=== PATIENT | male | born 1960 | race Caucasian/White ===

== ENCOUNTER 2018-06-07 11:49 | Inpatient (IN) | payer OTHER ==
[~2018-06-07] VITALS: Ht 167.6 cm; Wt 74.4 kg
[2018-06-07] MEDS ORDERED: IV NORMAL SALINE 1000ML BAG 1,000 ML IV ONE (12:15)
--- NOTE | 2018-06-07 12:31 | EKG ---
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
--- NOTE | 2018-06-07 12:32 | RAD ---
Portable chest, 06/07/2018: HISTORY: Headache The heart size and pulmonary vascularity are normal. No pulmonary infiltrate is seen. There is no evidence of pleural fluid. IMPRESSION: No acute cardiopulmonary abnormality is detected. Electronically signed by: Gerardo Kaur MD (06/07/2018 12:29 PM) [facility]
[2018-06-07 12:46] LABS: BASO % 0 % (0-3); EOS % 0 % (0-3); HEMATOCRIT 44.6 % (39.0-53.0); HEMOGLOBIN 15.8 g/dL (13.0-17.5); LYMPH % 12 % (24-48); MEAN CORPUSCULAR HEMOGLOBIN 33 pg (25-35); MEAN CORPUSCULAR HGB CONC 35 g/dL (31-37); MEAN CORPUSCULAR VOLUME 92 fL (79-100); MONO # 0.5 x10^3/uL (0.0-1.1); MONO % 6 % (0-9); NEUT # 7.4 x10^3uL (1.8-7.7); NEUT % 82 % (31-73); PLATELET COUNT 251 x10^3/uL (140-400); RED BLOOD COUNT 4.86 x10^6/uL (4.30-5.70); RED CELL DISTRIBUTION WIDTH 13.3 % (11.5-14.5)
[2018-06-07 12:55] LABS: CALCIUM 8.8 mg/dL (8.5-10.1); POTASSIUM 3.4 mmol/L (3.5-5.1)
[2018-06-07 12:57] LABS: PROTHROMBIN TIME PATIENT 13.2 SEC (11.7-14.0)
[2018-06-07 13:01] LABS: ALBUMIN 3.6 g/dL (3.4-5.0); ALBUMIN/GLOBULIN RATIO 0.9 (1.0-1.7); MAGNESIUM 2.2 mg/dL (1.8-2.4); TOTAL BILIRUBIN 1.3 mg/dL (0.2-1.0); TOTAL PROTEIN 7.7 g/dL (6.4-8.2)
--- NOTE | 2018-06-07 13:01 | RAD ---
CT head and cervical spine without contrast History: Headache, fall Technique: Noncontrast CT imaging was performed of the head and cervical spine. Multiplanar reconstruction images are submitted. Exposure: One or more of the following individualized dose reduction techniques were utilized for this examination: 1. Automated exposure control 2. Adjustment of the mA and/or kV according to patient size 3. Use of iterative reconstruction technique. Head CT Comparison: None Findings: There is a large inferior left frontal parenchymal hyperdense hematoma about 3 cm AP by about 2.3 cm CC by 2.5 cm transverse with adjacent prominent vasogenic edema signified by low density. There is adjacent hyperdense subdural hematoma estimated about 0.5-0.6 cm in thickness. There is also hyperdense subdural hematoma extending along the falx both anteriorly and posteriorly, greatest anteriorly about 0.5-0.6 cm in thickness more superiorly. There is also prominent left parasagittal subarachnoid hemorrhage, also in the left frontal region more anteriorly. There is also extent of thin subdural hematoma more laterally in the left frontal region estimated about 0.3 cm in thickness. There is also separate tiny focus of parenchymal hyperdense hemorrhage of the left frontal lobe axial image 16 about 0.3 cm in size. Ventricles are not significantly dilated. No acute calvarial fracture is identified. There is no significant midline shift. There is mild right maxillary sinus mucosal thickening. Mastoid air cells are aerated. There is air-fluid level in the sphenoid sinus, adjacent mild mucosal thickening. Impression: 1. There is a large acute left frontal parenchymal hemorrhagic contusion with adjacent prominent vasogenic edema, also adjacent subdural hematoma extending both laterally and also along the falx. There is also prominent left parasagittal subarachnoid hemorrhage. There is a separate small focus of parenchymal hemorrhagic contusion more laterally of the left frontal lobe. Cervical spine CT Comparison: None Findings: No acute cervical spine fracture is identified. Vertebral body stature is overall preserved. Atlanto-axial distance is within normal limits. There is appropriate alignment of lateral masses of C1 relative to C2. Occipital condylar-C1 relationship is maintained. There is moderate to severe degenerative disc disease at C5-C6 and minimally at C6-7. There is negligible anterior spondylolisthesis at T1-2. There is disc osteophyte complex C5-6. No significant osseous cervical spinal stenosis is identified on this nonmyelographic exam. There is multilevel cervical facet degenerative change, contributes to moderate to severe right and moderate left C5-6 neural foramina compromise. There is no significant abnormality of the limited visualized lung apices. Impression: 1. No acute cervical spine fracture is identified. 2. There is degenerative disc disease and spondylosis greatest at C5-6. There is also right greater than left C5-C6 neural foramina compromise due to facet degenerative change. FOR INTERNAL CODING PURPOSES Critical result: Findings discussed with GIULIA COLÓN APRN at 06/07/2018 12:49 PM. RESULT CODE: (C) Electronically signed by: Neal Cano MD (06/07/2018 12:58 PM) [id number]
[2018-06-07 13:09] LABS: CREATINE KINASE 74 U/L (39-308)
[2018-06-07] MEDS ORDERED: ONDANSETRON PF 4 MG/2 ML VIAL. IV PRN (13:45)
--- NOTE | 2018-06-07 14:20 | PDOC1 ---
History and Physical Date of Admission Date of Admission DATE: 06/07/18 TIME: 14:19 Identification/Chief Complaint Chief Complaint FALL AT HOME, MONDAY Past Medical History Past Medical History Past Medical History Past Medical History: No Pertinent History Past Surgical History: No Surgical History Additional Information: uses chewing tobacco Alcohol Use: HEAVY Drug Use: None FAMILY HX DEPRESSION Pulmonary: No pertinent hx GI: No pertinent hx Heme/Onc: No pertinent hx Renal/: No pertinent hx Family History Family History: Alcohol Abuse, Depression Family History: Parent Social History Smoke: No ALCOHOL: heavy Drugs: None Current Medications Current Medications Current Medications Sodium Chloride 1,000 ml @ 1,000 mls/hr 1X ONCE IV Last administered on at 12:33; Start 06/07/18 at 12:15; Stop 06/07/18 at 13:14; Status DC Ondansetron HCl (Zofran) 4 mg PRN Q8HRS PRN IV NAUSEA/VOMITING; Start 06/07/18 at 13:45; Stop 06/08/18 at 13:44 Morphine Sulfate (Morphine Sulfate) 4 mg PRN Q2HR PRN IV PAIN; Start 06/07/18 at 13:45; Stop 06/08/18 at 13:44 Allergies Allergies: Coded Allergies: No Known Drug Allergies (Unverified , 06/07/18) ROS Review of System 14 PT ROS OTHERWISE NEG General: YES: Fatigue, Malaise PSYCHOLOGICAL ROS: YES: Depression Eyes: Yes Blurry vision HEENT: YES: Heacaches Hematological and Lymphatic: No: Bleeding Problems, Blood Clots, Blood Transfusions, Brusing, Night Sweats, Pallor, Swollen Lymph Nodes, Other ENDOCRINE: No: Breast Changes, Galactorrhea, Hair Pattern Changes, Hot Flashes , Malaise/lethargy, Mood Swings, Palpitations, Polydipsia/polyuria, Skin Changes , Temperature Intolerance, Unexpected Weight Changes, Other Breast: No New/Changing Breast Lumps, No Nipple changes, No Nipple discharge, No Other Cardiovascular: No Chest Pain, No Palpitations, No Orthopnea, No Paroxysmal Noc. Dyspnea, No Edema, No Lt Headedness, No Other Gastrointestinal: No Nausea, No Vomiting, No Abdominal Pain, No Diarrhea, No Constipation, No Melena, No Hematochezia, No Other Musculoskeletal: Yes Gait Disturbance Neurological: Yes Confusion, Yes Dizziness, Yes Gait Disturbance Skin: No Dry Skin, No Eczema, No Hair Changes, No Lumps, No Mole Changes, No Mottling, No Nail Changes, No Pruritus, No Rash, No Skin Lesion Changes, No Other, No Acne Physical Exam Physical Exam Physical Exam Physical Exam Constitutional: Well developed, well nourished, MOD acute distress, non-toxic appearance. [] HENT: Normocephalic, atraumatic, bilateral external ears normal, oropharynx moist, no oral exudates, nose normal. [] Eyes: PERRLA, EOMI, conjunctiva normal, no discharge. [] Neck: Normal range of motion, no tenderness, supple, no stridor. [] Cardiovascular:Heart rate regular rhythm, no murmur [] Lungs & Thorax: Bilateral breath sounds clear to auscultation [] Abdomen: Bowel sounds normal, soft, no tenderness, no masses, no pulsatile masses. [] Skin: Warm, dry, no erythema, no rash. [] Back: No tenderness, no CVA tenderness. [] Extremities: No tenderness, no cyanosis, no clubbing, ROM intact, no edema. [] Neurologic: Alert and oriented X 2 has difficulty finding words, normal motor function, normal sensory function, no focal deficits noted. Cranial nerves II- XII intact. Bruising behind the right ear. Psychologic: Affect normal, judgement normal, mood ANXIOUS. [] General: Cooperative HEENT: EOMI, Mucous membr. moist/pink Lungs: Clear to auscultation, Normal air movement Rectal Exam: not examined Neuro: Cranial nerves 3-12 NL Vitals Vitals Vital Signs Date Time Temp Pulse Resp B/P (MAP) Pulse Ox O2 Delivery O2 Flow Rate FiO2 06/07/18 13:11 56 20 98 06/07/18 12:02 98.1 156/87 (110) Room Air 98.1 Labs Labs Laboratory Tests Test 06/07/18 12:25 White Blood Count 9.0 x10^3/uL (4.0-11.0) Red Blood Count 4.86 x10^6/uL (4.30-5.70) Hemoglobin 15.8 g/dL (13.0-17.5) Hematocrit 44.6 % (39.0-53.0) Mean Corpuscular Volume 92 fL (79-100) Mean Corpuscular Hemoglobin 33 pg (25-35) Mean Corpuscular Hemoglobin Concent 35 g/dL (31-37) Red Cell Distribution Width 13.3 % (11.5-14.5) Platelet Count 251 x10^3/uL (140-400) Neutrophils (%) (Auto) 82 % (31-73) Lymphocytes (%) (Auto) 12 % (24-48) Monocytes (%) (Auto) 6 % (0-9) Eosinophils (%) (Auto) 0 % (0-3) Basophils (%) (Auto) 0 % (0-3) Neutrophils # (Auto) 7.4 x10^3uL (1.8-7.7) Lymphocytes # (Auto) 1.0 x10^3/uL (1.0-4.8) Monocytes # (Auto) 0.5 x10^3/uL (0.0-1.1) Eosinophils # (Auto) 0.0 x10^3/uL (0.0-0.7) Basophils # (Auto) 0.0 x10^3/uL (0.0-0.2) Prothrombin Time 13.2 SEC (11.7-14.0) Prothromb Time International Ratio 1.1 (0.8-1.1) Activated Partial Thromboplast Time 27 SEC (24-38) Sodium Level 138 mmol/L (136-145) Potassium Level 3.4 mmol/L (3.5-5.1) Chloride Level 102 mmol/L (98-107) Carbon Dioxide Level 27 mmol/L (21-32) Anion Gap 9 (6-14) Blood Urea Nitrogen 9 mg/dL (8-26) Creatinine 1.0 mg/dL (0.7-1.3) Estimated GFR (Cockcroft-Gault) 77.0 BUN/Creatinine Ratio 9 (6-20) Glucose Level 117 mg/dL (70-99) Calcium Level 8.8 mg/dL (8.5-10.1) Magnesium Level 2.2 mg/dL (1.8-2.4) Total Bilirubin 1.3 mg/dL (0.2-1.0) Aspartate Amino Transf (AST/SGOT) 19 U/L (15-37) Alanine Aminotransferase (ALT/SGPT) 55 U/L (16-63) Alkaline Phosphatase 85 U/L (46-116) Creatine Kinase 74 U/L (39-308) Creatine Kinase MB (Mass) < 0.5 ng/mL (0.0-3.6) Creatine Kinase MB Relative Index % (0-4) Troponin I Quantitative < 0.017 ng/mL (0.000-0.055) TU-Fdb-V-Type Natriuretic Peptide 70 pg/mL (0-124) Total Protein 7.7 g/dL (6.4-8.2) Albumin 3.6 g/dL (3.4-5.0) Albumin/Globulin Ratio 0.9 (1.0-1.7) Ethyl Alcohol Level < 10 mg/dL (0-10) Laboratory Tests Test 06/07/18 12:25 White Blood Count 9.0 x10^3/uL (4.0-11.0) Red Blood Count 4.86 x10^6/uL (4.30-5.70) Hemoglobin 15.8 g/dL (13.0-17.5) Hematocrit 44.6 % (39.0-53.0) Mean Corpuscular Volume 92 fL (79-100) Mean Corpuscular Hemoglobin 33 pg (25-35) Mean Corpuscular Hemoglobin Concent 35 g/dL (31-37) Red Cell Distribution Width 13.3 % (11.5-14.5) Platelet Count 251 x10^3/uL (140-400) Neutrophils (%) (Auto) 82 % (31-73) Lymphocytes (%) (Auto) 12 % (24-48) Monocytes (%) (Auto) 6 % (0-9) Eosinophils (%) (Auto) 0 % (0-3) Basophils (%) (Auto) 0 % (0-3) Neutrophils # (Auto) 7.4 x10^3uL (1.8-7.7) Lymphocytes # (Auto) 1.0 x10^3/uL (1.0-4.8) Monocytes # (Auto) 0.5 x10^3/uL (0.0-1.1) Eosinophils # (Auto) 0.0 x10^3/uL (0.0-0.7) Basophils # (Auto) 0.0 x10^3/uL (0.0-0.2) Prothrombin Time 13.2 SEC (11.7-14.0) Prothromb Time International Ratio 1.1 (0.8-1.1) Activated Partial Thromboplast Time 27 SEC (24-38) Sodium Level 138 mmol/L (136-145) Potassium Level 3.4 mmol/L (3.5-5.1) Chloride Level 102 mmol/L (98-107) Carbon Dioxide Level 27 mmol/L (21-32) Anion Gap 9 (6-14) Blood Urea Nitrogen 9 mg/dL (8-26) Creatinine 1.0 mg/dL (0.7-1.3) Estimated GFR (Cockcroft-Gault) 77.0 BUN/Creatinine Ratio 9 (6-20) Glucose Level 117 mg/dL (70-99) Calcium Level 8.8 mg/dL (8.5-10.1) Magnesium Level 2.2 mg/dL (1.8-2.4) Total Bilirubin 1.3 mg/dL (0.2-1.0) Aspartate Amino Transf (AST/SGOT) 19 U/L (15-37) Alanine Aminotransferase (ALT/SGPT) 55 U/L (16-63) Alkaline Phosphatase 85 U/L (46-116) Creatine Kinase 74 U/L (39-308) Creatine Kinase MB (Mass) < 0.5 ng/mL (0.0-3.6) Creatine Kinase MB Relative Index % (0-4) Troponin I Quantitative < 0.017 ng/mL (0.000-0.055) BJ-Hnd-P-Type Natriuretic Peptide 70 pg/mL (0-124) Total Protein 7.7 g/dL (6.4-8.2) Albumin 3.6 g/dL (3.4-5.0) Albumin/Globulin Ratio 0.9 (1.0-1.7) Ethyl Alcohol Level < 10 mg/dL (0-10) Images Images CT head and cervical spine without contrast History: Headache, fall Technique: Noncontrast CT imaging was performed of the head and cervical spine. Multiplanar reconstruction images are submitted. Exposure: One or more of the following individualized dose reduction techniques were utilized for this examination: 1. Automated exposure control 2. Adjustment of the mA and/or kV according to patient size 3. Use of iterative reconstruction technique. Head CT Comparison: None Findings: There is a large inferior left frontal parenchymal hyperdense hematoma about 3 cm AP by about 2.3 cm CC by 2.5 cm transverse with adjacent prominent vasogenic edema signified by low density. There is adjacent hyperdense subdural hematoma estimated about 0.5-0.6 cm in thickness. There is also hyperdense subdural hematoma extending along the falx both anteriorly and posteriorly, greatest anteriorly about 0.5-0.6 cm in thickness more superiorly. There is also prominent left parasagittal subarachnoid hemorrhage, also in the left frontal region more anteriorly. There is also extent of thin subdural hematoma more laterally in the left frontal region estimated about 0.3 cm in thickness. There is also separate tiny focus of parenchymal hyperdense hemorrhage of the left frontal lobe axial image 16 about 0.3 cm in size. Ventricles are not significantly dilated. No acute calvarial fracture is identified. There is no significant midline shift. There is mild right maxillary sinus mucosal thickening. Mastoid air cells are aerated. There is air-fluid level in the sphenoid sinus, adjacent mild mucosal thickening. Impression: 1. There is a large acute left frontal parenchymal hemorrhagic contusion with adjacent prominent vasogenic edema, also adjacent subdural hematoma extending both laterally and also along the falx. There is also prominent left parasagittal subarachnoid hemorrhage. There is a separate small focus of parenchymal hemorrhagic contusion more laterally of the left frontal lobe. Cervical spine CT Comparison: None Findings: No acute cervical spine fracture is identified. Vertebral body stature is overall preserved. Atlanto-axial distance is within normal limits. There is appropriate alignment of lateral masses of C1 relative to C2. Occipital condylar-C1 relationship is maintained. There is moderate to severe degenerative disc disease at C5-C6 and minimally at C6-7. There is negligible anterior spondylolisthesis at T1-2. There is disc osteophyte complex C5-6. No significant osseous cervical spinal stenosis is identified on this nonmyelographic exam. There is multilevel cervical facet degenerative change, contributes to moderate to severe right and moderate left C5-6 neural foramina compromise. There is no significant abnormality of the limited visualized lung apices. Impression: 1. No acute cervical spine fracture is identified. 2. There is degenerative disc disease and spondylosis greatest at C5-6. There is also right greater than left C5-C6 neural foramina compromise due to facet degenerative change. FOR INTERNAL CODING PURPOSES Critical result: Findings discussed with GIULIA COLÓN APRN at 06/07/2018 12:49 PM. VTE Prophylaxis Ordered VTE Prophylaxis Devices: Yes VTE Pharmacological Prophylaxi: Contraindicated Assessment/Plan Assessment/Plan IMPRESSION fall 5 days [employer] , May have been drinking ICU observation, repeat CT in AM, neuro checks 1. large inferior left frontal parenchymal hyperdense hematoma about 3 cm AP by about 2.3 cm CC by 2.5 cm transverse with adjacent prominent vasogenic edema signified by low density. 2.adjacent hyperdense subdural hematoma estimated about 0.5-0.6 cm in thickness. There is also hyperdense subdural hematoma extending along the falx both anteriorly and posteriorly, greatest anteriorly about 0.5-0.6 cm in thickness more superiorly. 3. prominent left parasagittal subarachnoid hemorrhage, also in the left frontal region more anteriorly. There is also extent of thin subdural hematoma more laterally in the left frontal region estimated about 0.3 cm in thickness. There is also separate tiny focus of parenchymal hyperdense hemorrhage of the left frontal lobe axial image 16 about 0.3 cm in size. 4. Ventricles are not significantly dilated. No acute calvarial fracture is identified. 5. ALCOHOL ABUSE PLAN ICU BED NS CONSULT NEUROLOGY CONSULT NEUROCHECKS Q [address] HEAD IN AM BANANA BAG SCD'S SEIZURE PRECAUTIONS 100MIN CC TIME CARISSA MOORE MD Jun 07, 2018 14:20
[2018-06-07 15:00] VITALS: BP 122/75
--- NOTE | 2018-06-07 15:15 | PHYS DOC ---
Past Medical History Past Medical History: No Pertinent History Past Surgical History: No Surgical History Additional Information: uses chewing tobacco Alcohol Use: Occasionally Drug Use: None Adult General Chief Complaint Chief Complaint: HEADACHE HPI HPI Patient is a 58 year old male with no significant medical history who presents today complaining of 7 out of 10 frontal headache described as sharp and constant that has been going on since early Monday morning after he fell. Patient states he drank heavily on Monday night. He states he fell down but he doesn't remember how. Patient states he was seen by the PCP on Monday over his headache, he was started on azithromycin. He states his symptoms did not improve, he went to the urgent care clinic at the PCPs office, he was sent to the ED for evaluation. Daughter in the room, he states patient has been walking leaning on one side, and has difficulty finding words. Patient is also complaining of photophobia. Patient denies any nausea vomiting Review of Systems Review of Systems Constitutional: Denies fever or chills [] Eyes: Denies change in visual acuity, redness, or eye pain [] HENT: Denies nasal congestion or sore throat [] Respiratory: Denies cough or shortness of breath [] Cardiovascular: No additional information not addressed in HPI [] GI: Denies abdominal pain, nausea, vomiting, bloody stools or diarrhea [] : Denies dysuria or hematuria [] Musculoskeletal: Denies back pain or joint pain [] Integument: Denies rash or skin lesions [] Neurologic: Reports headache, denies focal weakness or sensory changes [] All other systems were reviewed and found to be within normal limits, except as documented in this note. Current Medications Current Medications Current Medications Medications (Trade) Dose Ordered Sig/Mere Start Time Stop Time Status Last Admin Dose Admin Sodium Chloride 1,000 ml @ 1,000 mls/hr 1X ONCE 06/07/18 12:15 06/07/18 13:14 DC 06/07/18 12:33 1,000 MLS/HR Allergies Allergies Allergies Coded Allergies Type Severity Reaction Last Updated Verified No Known Drug Allergies 06/07/18 No Physical Exam Physical Exam Constitutional: Well developed, well nourished, no acute distress, non-toxic appearance. [] HENT: Normocephalic, atraumatic, bilateral external ears normal, oropharynx moist, no oral exudates, nose normal. [] Eyes: PERRLA, EOMI, conjunctiva normal, no discharge. [] Neck: Normal range of motion, no tenderness, supple, no stridor. [] Cardiovascular:Heart rate regular rhythm, no murmur [] Lungs & Thorax: Bilateral breath sounds clear to auscultation [] Abdomen: Bowel sounds normal, soft, no tenderness, no masses, no pulsatile masses. [] Skin: Warm, dry, no erythema, no rash. [] Back: No tenderness, no CVA tenderness. [] Extremities: No tenderness, no cyanosis, no clubbing, ROM intact, no edema. [] Neurologic: Alert and oriented X 2 has difficulty finding words, normal motor function, normal sensory function, no focal deficits noted. Cranial nerves II- XII intact. Bruising behind the right ear. Psychologic: Affect normal, judgement normal, mood normal. [] Current Patient Data Vital Signs Vital Signs Date Time Temp Pulse Resp B/P (MAP) Pulse Ox O2 Delivery O2 Flow Rate FiO2 06/07/18 13:11 56 20 98 06/07/18 12:02 98.1 156/87 (110) Room Air 98.1 Lab Values Laboratory Tests Test 06/07/18 12:25 White Blood Count 9.0 x10^3/uL (4.0-11.0) Red Blood Count 4.86 x10^6/uL (4.30-5.70) Hemoglobin 15.8 g/dL (13.0-17.5) Hematocrit 44.6 % (39.0-53.0) Mean Corpuscular Volume 92 fL (79-100) Mean Corpuscular Hemoglobin 33 pg (25-35) Mean Corpuscular Hemoglobin Concent 35 g/dL (31-37) Red Cell Distribution Width 13.3 % (11.5-14.5) Platelet Count 251 x10^3/uL (140-400) Neutrophils (%) (Auto) 82 % (31-73) H Lymphocytes (%) (Auto) 12 % (24-48) L Monocytes (%) (Auto) 6 % (0-9) Eosinophils (%) (Auto) 0 % (0-3) Basophils (%) (Auto) 0 % (0-3) Neutrophils # (Auto) 7.4 x10^3uL (1.8-7.7) Lymphocytes # (Auto) 1.0 x10^3/uL (1.0-4.8) Monocytes # (Auto) 0.5 x10^3/uL (0.0-1.1) Eosinophils # (Auto) 0.0 x10^3/uL (0.0-0.7) Basophils # (Auto) 0.0 x10^3/uL (0.0-0.2) Prothrombin Time 13.2 SEC (11.7-14.0) Prothrombin Time INR 1.1 (0.8-1.1) PTT 27 SEC (24-38) Sodium Level 138 mmol/L (136-145) Potassium Level 3.4 mmol/L (3.5-5.1) L Chloride Level 102 mmol/L (98-107) Carbon Dioxide Level 27 mmol/L (21-32) Anion Gap 9 (6-14) Blood Urea Nitrogen 9 mg/dL (8-26) Creatinine 1.0 mg/dL (0.7-1.3) Estimated GFR (Cockcroft-Gault) 77.0 BUN/Creatinine Ratio 9 (6-20) Glucose Level 117 mg/dL (70-99) H Calcium Level 8.8 mg/dL (8.5-10.1) Magnesium Level 2.2 mg/dL (1.8-2.4) Total Bilirubin 1.3 mg/dL (0.2-1.0) H Aspartate Amino Transferase (AST) 19 U/L (15-37) Alanine Aminotransferase (ALT) 55 U/L (16-63) Alkaline Phosphatase 85 U/L (46-116) Creatine Kinase 74 U/L (39-308) Creatine Kinase MB (Mass) < 0.5 ng/mL (0.0-3.6) Creatine Kinase MB Relative Index % (0-4) Troponin I Quantitative < 0.017 ng/mL (0.000-0.055) PR-Niz-Y-Type Natriuretic Peptide 70 pg/mL (0-124) Total Protein 7.7 g/dL (6.4-8.2) Albumin 3.6 g/dL (3.4-5.0) Albumin/Globulin Ratio 0.9 (1.0-1.7) L Ethyl Alcohol Level < 10 mg/dL (0-10) Laboratory Tests 06/07/18 12:25 Laboratory Tests 06/07/18 12:25 EKG EKG 12:[address] Blanc sinus rhythm HR 56 peaked T waves on V4, V2 , V3 no STEMI Radiology/Procedures Radiology/Procedures []PROCEDURE: PORTABLE CHEST 1V Portable chest, 06/07/2018: HISTORY: Headache The heart size and pulmonary vascularity are normal. No pulmonary infiltrate is seen. There is no evidence of pleural fluid. IMPRESSION: No acute cardiopulmonary abnormality is detected. Electronically signed by: Gerardo Kaur MD (06/07/2018 12:29 PM) [facility] DICTATED and SIGNED BY: GERARDO KAUR MD DATE: 06/07/18 1228 PROCEDURE: CT HEAD AND CERVICAL SPINE WO CT head and cervical spine without contrast History: Headache, fall Technique: Noncontrast CT imaging was performed of the head and cervical spine. Multiplanar reconstruction images are submitted. Exposure: One or more of the following individualized dose reduction techniques were utilized for this examination: 1. Automated exposure control 2. Adjustment of the mA and/or kV according to patient size 3. Use of iterative reconstruction technique. Head CT Comparison: None Findings: There is a large inferior left frontal parenchymal hyperdense hematoma about 3 cm AP by about 2.3 cm CC by 2.5 cm transverse with adjacent prominent vasogenic edema signified by low density. There is adjacent hyperdense subdural hematoma estimated about 0.5-0.6 cm in thickness. There is also hyperdense subdural hematoma extending along the falx both anteriorly and posteriorly, greatest anteriorly about 0.5-0.6 cm in thickness more superiorly. There is also prominent left parasagittal subarachnoid hemorrhage, also in the left frontal region more anteriorly. There is also extent of thin subdural hematoma more laterally in the left frontal region estimated about 0.3 cm in thickness. There is also separate tiny focus of parenchymal hyperdense hemorrhage of the left frontal lobe axial image 16 about 0.3 cm in size. Ventricles are not significantly dilated. No acute calvarial fracture is identified. There is no significant midline shift. There is mild right maxillary sinus mucosal thickening. Mastoid air cells are aerated. There is air-fluid level in the sphenoid sinus, adjacent mild mucosal thickening. Impression: 1. There is a large acute left frontal parenchymal hemorrhagic contusion with adjacent prominent vasogenic edema, also adjacent subdural hematoma extending both laterally and also along the falx. There is also prominent left parasagittal subarachnoid hemorrhage. There is a separate small focus of parenchymal hemorrhagic contusion more laterally of the left frontal lobe. Cervical spine CT Comparison: None Findings: No acute cervical spine fracture is identified. Vertebral body stature is overall preserved. Atlanto-axial distance is within normal limits. There is appropriate alignment of lateral masses of C1 relative to C2. Occipital condylar-C1 relationship is maintained. There is moderate to severe degenerative disc disease at C5-C6 and minimally at C6-7. There is negligible anterior spondylolisthesis at T1-2. There is disc osteophyte complex C5-6. No significant osseous cervical spinal stenosis is identified on this nonmyelographic exam. There is multilevel cervical facet degenerative change, contributes to moderate to severe right and moderate left C5-6 neural foramina compromise. There is no significant abnormality of the limited visualized lung apices. Impression: 1. No acute cervical spine fracture is identified. 2. There is degenerative disc disease and spondylosis greatest at C5-6. There is also right greater than left C5-C6 neural foramina compromise due to facet degenerative change. FOR INTERNAL CODING PURPOSES Critical result: Findings discussed with GIULIA COLÓN APRN at 06/07/2018 12:49 PM. RESULT CODE: (C) Course & Med Decision Making Course & Med Decision Making Pertinent Labs and Imaging studies reviewed. (See chart for details) This is a 58-year-old male patient with history of alcoholism who presents today to be evaluated for headache that has been going on since Monday, patient fell early Monday morning after drinking heavily Monday night. Unknown if he had any loss of consciousness. He is alert and oriented 2 in the ED. He has difficulty finding words. Blood pressure on arrival to the ED is 150/104, heart rate 61, respirations 16 and room air, O2 sats 98% on air. FAST exam is negative. Stroke scale documented in nursing notes Labs are negative for any acute findings including PT and INR. CT of the cervical spine is negative for any acute findings, CT of the head is noted for a large acute left frontal parenchymal hemorrhagic contusion with adjacent prominent vasogenic edema, also adjacent subdural hematoma extending both laterally and also along the falx. There is also prominent left parasagittal subarachnoid hemorrhage. There is a separate small focus of parenchymal hemorrhagic contusion more laterally of the left frontal lobe. 13:10 spoke with Tanna MARIE for neurosurgery. Will F/u with patient today 13:26 Dr. Rodríguez who accepted patient for admission. Dragon Disclaimer Dragon Disclaimer This electronic medical record was generated, in whole or in part, using a voice recognition dictation system. Departure Departure Impression: Primary Impression: Subarachnoid hematoma Additional Impressions: Subdural hematoma Fall ETOH abuse Disposition: ADMITTED INPATIENT Condition: STABLE Referrals: KANDACE MAHER (PCP) Problem Qualifiers Primary Impression: Subarachnoid hematoma Encounter type: initial encounter Loss of consciousness presence/duration: with LOC of unspecified duration Qualified Codes: S06.6X9A - Traumatic subarachnoid hemorrhage with loss of consciousness of unspecified duration, initial encounter Additional Impressions: Fall Encounter type: initial encounter Qualified Codes: W19.XXXA - Unspecified fall, initial encounter GIULIA COLÓN APRN Jun 07, 2018 15:15
--- NOTE | 2018-06-07 15:26 | PDOC ---
Provider Note Provider Note patient seen and examined in ICU fell Monday c/o headache since then admitted after second trip to urgent care on exam cruz sign on the right, pupils reactive, neuro intact except dec sensation left face and decreased hearing left ear which he reports is a chronic problems CT with large left frontal hemorrhagic contusion with associated SDH and left parasagittal SAH ICU observation, repeat CT in AM, neuro checks I think surgery is unlikely at this point but he will need to be followed full consult to follow VIKAS MONTEIRO MD Jun 07, 2018 15:26
[2018-06-07] MEDS: POTASSIUM CHLORIDE 10MEQ 100 ML IV SCH ×4 (16:15→19:51)
[2018-06-07] MEDS: MULTIVIT INFUSN,ADULT 4,VIT K 10 ML, THIAMINE INJ 100 MG, FOLIC ACID INJ 1 MG in IV NOR... IV SCH (16:15)
[2018-06-07] MEDS: MORPHINE SULFATE 4 MG/ML VIAL. IV PRN ×2 (16:15→23:29)
[2018-06-07] MEDS ORDERED: cloNIDine HCL 0.1 MG TABLET PO PRN (17:30)
[2018-06-07] MEDS ORDERED: LORazepam 1 MG TABLET PO PRN ×2 (17:30)
[2018-06-07] MEDS ORDERED: HALOPERIDOL LACTATE 5 MG/ML VIAL. IVP PRN (17:30)
[2018-06-07] MEDS ORDERED: diphenhydrAMINE 50 MG/ML VIAL IVP PRN (17:30)
[2018-06-07 19:00] VITALS: BP 145/91
--- NOTE | 2018-06-07 19:29 | CONS ---
DATE OF CONSULTATION: 06/07/2018 REASON FOR CONSULTATION: Intracerebral contusion. HISTORY OF PRESENT ILLNESS: The patient is a pleasant 58-year-old man who reported that last Monday night, he fell. He said that he was drinking heavily Monday night and he fell down, but does not remember those events. He developed headache following this and saw his PCP on Monday. He was seen in the urgent care center. Antibiotics were started and he did not improve. Today because of continued headache, he was again seen in Urgent Care and then sent to the Emergency Room for further evaluation. A CT scan of the head was performed and he was admitted. He denies any problems with nausea or vomiting. He relates that he has had difficulty with bright lights. He says he has had some difficulty with word finding. PAST MEDICAL HISTORY: There is no pertinent history. PAST SURGICAL HISTORY: Negative. PERSONAL HISTORY: He reports alcohol use. He reports using chewing tobacco. Denies drug use. REVIEW OF SYSTEMS: Twelve points was performed and was negative other than outlined above. CURRENT MEDICATIONS: Reviewed and were negative. ALLERGIES: No known allergies to drugs. PHYSICAL EXAMINATION: GENERAL: He is pleasant, alert and cooperative, oriented x 3, complaining of headache. HEENT: Normocephalic. NECK: There is ecchymosis behind, inferior to his right ear/cruz sign. NEUROLOGIC: On examination of his cranial nerves, his pupils were equal and reactive with normal extraocular motor function. Facial motor examination was normal and facial sensory examination, he reported a decrease in light touch involving his left face and decreased hearing to finger rub involving his left ear. The remainder of his cranial nerves were intact. On motor testing, his strength was 5/5 in upper and lower extremities bilaterally. On sensory examination, was intact to light touch in the upper and lower extremities bilaterally. Reflexes were 1+ and symmetric. There were no pathologic reflexes. There was full range of motion of upper and lower extremities bilaterally. LABORATORY DATA: I reviewed a CT scan of the head. On that study, there is a large acute/subacute left frontal hemorrhagic contusion, which is associated with left parasagittal subarachnoid hemorrhage as well as a thin subdural hematoma over the left frontal region. There was no significant midline shift. IMPRESSION: Headache related to left frontal parenchymal hemorrhagic contusion related to atraumatic fall. RECOMMENDATIONS: At this point, he should be admitted to the Intensive Care Unit and observed presently through the night and repeat CT should be performed tomorrow. I feel that the risk of surgical intervention at this point is very small. I appreciate you asking us to see him. VIKAS MONTEIRO MD DR: BETY/cammie JOB#: [id number] / [id number]
[2018-06-07 21:38] LABS: BILIRUBIN,URINE NEGATIVE (NEG); CLARITY,URINE CLOUDY; COLOR,URINE AMBER; NITRITE,URINE NEGATIVE (NEG); PH,URINE 6.5; PROTEIN,URINE NEGATIVE (NEG-TRACE)
[2018-06-07 21:46] LABS: BARBITURATES NEG (NEG); BENZODIAZEPINES NEG (NEG); CANNABINOIDS NEG (NEG); COCAINE NEG (NEG); METHADONE NEG (NEG); OPIATES POS (NEG); PHENCYCLIDINE NEG (NEG)
[2018-06-07 21:48] LABS: BACTERIA,URINE 0 /HPF (0-FEW); HYALINE CASTS, URINE OCCASIONAL /HPF; WBC,URINE OCC /HPF (0-4)
[2018-06-07 21:50] LABS: AMPHETAMINE/METHAMPHETAMINE NEG (NEG)
[2018-06-07 22:19] VITALS: BP 145/82
[2018-06-08] VITALS (14 sets, daily range): BP systolic 65–157; BP diastolic 62–95
[2018-06-08] MEDS: MORPHINE SULFATE 4 MG/ML VIAL. IV PRN (06:47)
[2018-06-08] MEDS ORDERED: MULTIVIT INFUSN,ADULT 4,VIT K 10 ML, THIAMINE INJ 100 MG, FOLIC ACID INJ 1 MG in IV NOR... IV SCH ×8 (09:00)
[2018-06-08] MEDS ORDERED: ENALAPRILAT 1.25 MG/ML VIAL. IVP PRN (09:30)
[2018-06-08] MEDS ORDERED: ONDANSETRON PF 4 MG/2 ML VIAL. IV PRN (09:45)
[2018-06-08] MEDS ORDERED: DOCUSATE SODIUM 100 MG CAPSULE. PO PRN (09:45)
[2018-06-08] MEDS: MULTIVIT INFUSN,ADULT 4,VIT K 10 ML, THIAMINE INJ 100 MG, FOLIC ACID INJ 1 MG in IV NOR... IV SCH (09:47)
[2018-06-08 11:05] LABS: BASO % 0 % (0-3); EOS % 0 % (0-3); HEMATOCRIT 40.3 % (39.0-53.0); HEMOGLOBIN 14.3 g/dL (13.0-17.5); LYMPH # 1.5 x10^3/uL (1.0-4.8); LYMPH % 15 % (24-48); MEAN CORPUSCULAR HEMOGLOBIN 32 pg (25-35); MEAN CORPUSCULAR HGB CONC 36 g/dL (31-37); MEAN CORPUSCULAR VOLUME 91 fL (79-100); MONO # 0.8 x10^3/uL (0.0-1.1); MONO % 8 % (0-9); NEUT # 8.1 x10^3uL (1.8-7.7); NEUT % 77 % (31-73); PLATELET COUNT 230 x10^3/uL (140-400); RED BLOOD COUNT 4.44 x10^6/uL (4.30-5.70); RED CELL DISTRIBUTION WIDTH 13.2 % (11.5-14.5); WHITE BLOOD COUNT 10.6 x10^3/uL (4.0-11.0)
[2018-06-08 11:12] LABS: CALCIUM 8.5 mg/dL (8.5-10.1); CREATININE 0.8 mg/dL (0.7-1.3); GFR 99.6; POTASSIUM 3.7 mmol/L (3.5-5.1)
[2018-06-08 11:17] LABS: CHOLESTEROL/HDL RATIO 7.1
[2018-06-08] MEDS: AMINO AC 3%/ELECTROLYTE/GLYCER 1,000 ML IV SCH (11:54)
[2018-06-08] MEDS: MORPHINE SULFATE 2 MG/ML VIAL. IV PRN ×3 (11:56→20:48)
--- NOTE | 2018-06-08 12:11 | RAD ---
CT of the head without contrast, 06/08/2018: HISTORY: Follow-up parenchymal hemorrhage/contusion Noncontrast scans were obtained and compared to a study from 06/07/2018. We performed sagittal and coronal reconstructions. There is an irregular area of increased density again identified within the left frontal lobe with moderate surrounding edema. This apparent hemorrhage measures approximately 2.8 cm in greatest width and is of similar size and extent compared to yesterday's study. There is an adjacent extra-axial component of hemorrhage anteroinferiorly, best seen on the sagittal and coronal views, compatible with a subdural location. It measures approximately 6 mm in width. This subdural component extends posteriorly along the left side of the falx as well as superiorly adjacent to the falx. There are also areas of increased density in the left frontal lobe and the left parafalcine region compatible with a component of subarachnoid hemorrhage. Some of these areas of increased density along the left side of the falx also probably represent parenchymal contusion. There is been no significant change since yesterday's study. There is no shift of the midline structures. The right cerebral hemisphere and cerebellum are unremarkable. No bony abnormality is detected. There is fluid in the left sphenoid sinus with mucosal thickening in the right maxillary and left sphenoid sinuses, likely on an inflammatory basis. IMPRESSION: Stable left frontal lobe hemorrhage compatible with a cerebral contusion with associated edema, as well as adjacent subdural and subarachnoid hemorrhage as described above. Electronically signed by: Gerardo Kaur MD (06/08/2018 12:07 PM) [facility]
--- NOTE | 2018-06-08 13:44 | PDOC ---
PROGRESS NOTES Chief Complaint Chief Complaint left frontal hemorrhage with contusion, edema, from fall traumatic possible ETOH abuse AMS, with brain hemorrhage, with some confusion and memory issues plan: fu with neurosx no sx for now ok to transfer out of ICU CT repeated today stable PTOT keep BP <150/90 with iv meds prn, if cont high , need add po meds talked to and daughter at bedside PPN for now with lo po intake History of Present Illness History of Present Illness ROS: no fever, chills, sob or chest pain headache much better talks slow, walk slow not like normal eats ok, but low po intake Vitals Vitals Vital Signs Date Time Temp Pulse Resp B/P (MAP) Pulse Ox O2 Delivery O2 Flow Rate FiO2 06/08/18 11:56 13 97 Room Air 06/08/18 06:00 57 142/89 (106) 06/08/18 04:00 98.7 98.7 Physical Exam Physical Exam talks very slow, not answer some questions, bl strength ok General: Alert, Cooperative Heart: Regular rate, Normal S1, Normal S2 Lungs: Clear Abdomen: Normal bowel sounds, Soft Extremities: No clubbing, No cyanosis Skin: No rashes Labs LABS Laboratory Tests Test 06/07/18 21:20 06/08/18 10:45 Urine Collection Type Unknown Urine Color Purnima Urine Clarity Cloudy Urine pH 6.5 Urine Specific Hughes 1.020 Urine Protein Negative mg/dL (NEG-TRACE) Urine Glucose (UA) Negative mg/dL (NEG) Urine Ketones (Stick) 40 mg/dL (NEG) Urine Blood Negative (NEG) Urine Nitrite Negative (NEG) Urine Bilirubin Negative (NEG) Urine Urobilinogen Dipstick 4.0 mg/dL (0.2 mg/dL) Urine Leukocyte Esterase Negative (NEG) Urine RBC 1-2 /HPF (0-2) Urine WBC Occ /HPF (0-4) Urine Bacteria 0 /HPF (0-FEW) Urine Hyaline Casts Occasional /HPF Urine Mucus Marked /LPF Urine Opiates Screen Pos (NEG) Urine Methadone Screen Neg (NEG) Urine Barbiturates Neg (NEG) Urine Phencyclidine Screen Neg (NEG) Urine Amphetamine/Methamphetamine Neg (NEG) Urine Benzodiazepines Screen Neg (NEG) Urine Cocaine Screen Neg (NEG) Urine Cannabinoids Screen Neg (NEG) Urine Ethyl Alcohol Neg (NEG) White Blood Count 10.6 x10^3/uL (4.0-11.0) Red Blood Count 4.44 x10^6/uL (4.30-5.70) Hemoglobin 14.3 g/dL (13.0-17.5) Hematocrit 40.3 % (39.0-53.0) Mean Corpuscular Volume 91 fL (79-100) Mean Corpuscular Hemoglobin 32 pg (25-35) Mean Corpuscular Hemoglobin Concent 36 g/dL (31-37) Red Cell Distribution Width 13.2 % (11.5-14.5) Platelet Count 230 x10^3/uL (140-400) Neutrophils (%) (Auto) 77 % (31-73) Lymphocytes (%) (Auto) 15 % (24-48) Monocytes (%) (Auto) 8 % (0-9) Eosinophils (%) (Auto) 0 % (0-3) Basophils (%) (Auto) 0 % (0-3) Neutrophils # (Auto) 8.1 x10^3uL (1.8-7.7) Lymphocytes # (Auto) 1.5 x10^3/uL (1.0-4.8) Monocytes # (Auto) 0.8 x10^3/uL (0.0-1.1) Eosinophils # (Auto) 0.0 x10^3/uL (0.0-0.7) Basophils # (Auto) 0.0 x10^3/uL (0.0-0.2) Sodium Level 133 mmol/L (136-145) Potassium Level 3.7 mmol/L (3.5-5.1) Chloride Level 99 mmol/L (98-107) Carbon Dioxide Level 23 mmol/L (21-32) Anion Gap 11 (6-14) Blood Urea Nitrogen 7 mg/dL (8-26) Creatinine 0.8 mg/dL (0.7-1.3) Estimated GFR (Cockcroft-Gault) 99.6 Glucose Level 105 mg/dL (70-99) Calcium Level 8.5 mg/dL (8.5-10.1) Triglycerides Level 85 mg/dL (0-150) Cholesterol Level 185 mg/dL (0-200) LDL Cholesterol, Calculated 142 mg/dL (0-100) VLDL Cholesterol, Calculated 17 mg/dL (0-40) Non-HDL Cholesterol Calculated 159 mg/dL (0-129) HDL Cholesterol 26 mg/dL (40-60) Cholesterol/HDL Ratio 7.1 Assessment and Plan Assessmemt and Plan Problems Medical Problems: (1) ETOH abuse Status: Acute (2) Fall Status: Acute Comment Review of Relevant I have reviewed the following items ranjan (where applicable) has been applied. Labs Laboratory Tests Test 06/07/18 12:22 06/07/18 12:25 06/07/18 21:20 06/08/18 10:45 Vitamin B12 Level 472 pg/mL (247-911) Thyroid Stimulating Hormone (TSH) 0.504 uIU/mL (0.358-3.74) White Blood Count 9.0 x10^3/uL (4.0-11.0) 10.6 x10^3/uL (4.0-11.0) Red Blood Count 4.86 x10^6/uL (4.30-5.70) 4.44 x10^6/uL (4.30-5.70) Hemoglobin 15.8 g/dL (13.0-17.5) 14.3 g/dL (13.0-17.5) Hematocrit 44.6 % (39.0-53.0) 40.3 % (39.0-53.0) Mean Corpuscular Volume 92 fL (79-100) 91 fL (79-100) Mean Corpuscular Hemoglobin 33 pg (25-35) 32 pg (25-35) Mean Corpuscular Hemoglobin Concent 35 g/dL (31-37) 36 g/dL (31-37) Red Cell Distribution Width 13.3 % (11.5-14.5) 13.2 % (11.5-14.5) Platelet Count 251 x10^3/uL (140-400) 230 x10^3/uL (140-400) Neutrophils (%) (Auto) 82 % (31-73) 77 % (31-73) Lymphocytes (%) (Auto) 12 % (24-48) 15 % (24-48) Monocytes (%) (Auto) 6 % (0-9) 8 % (0-9) Eosinophils (%) (Auto) 0 % (0-3) 0 % (0-3) Basophils (%) (Auto) 0 % (0-3) 0 % (0-3) Neutrophils # (Auto) 7.4 x10^3uL (1.8-7.7) 8.1 x10^3uL (1.8-7.7) Lymphocytes # (Auto) 1.0 x10^3/uL (1.0-4.8) 1.5 x10^3/uL (1.0-4.8) Monocytes # (Auto) 0.5 x10^3/uL (0.0-1.1) 0.8 x10^3/uL (0.0-1.1) Eosinophils # (Auto) 0.0 x10^3/uL (0.0-0.7) 0.0 x10^3/uL (0.0-0.7) Basophils # (Auto) 0.0 x10^3/uL (0.0-0.2) 0.0 x10^3/uL (0.0-0.2) Prothrombin Time 13.2 SEC (11.7-14.0) Prothromb Time International Ratio 1.1 (0.8-1.1) Activated Partial Thromboplast Time 27 SEC (24-38) Sodium Level 138 mmol/L (136-145) 133 mmol/L (136-145) Potassium Level 3.4 mmol/L (3.5-5.1) 3.7 mmol/L (3.5-5.1) Chloride Level 102 mmol/L (98-107) 99 mmol/L (98-107) Carbon Dioxide Level 27 mmol/L (21-32) 23 mmol/L (21-32) Anion Gap 9 (6-14) 11 (6-14) Blood Urea Nitrogen 9 mg/dL (8-26) 7 mg/dL (8-26) Creatinine 1.0 mg/dL (0.7-1.3) 0.8 mg/dL (0.7-1.3) Estimated GFR (Cockcroft-Gault) 77.0 99.6 BUN/Creatinine Ratio 9 (6-20) Glucose Level 117 mg/dL (70-99) 105 mg/dL (70-99) Calcium Level 8.8 mg/dL (8.5-10.1) 8.5 mg/dL (8.5-10.1) Magnesium Level 2.2 mg/dL (1.8-2.4) Total Bilirubin 1.3 mg/dL (0.2-1.0) Direct Bilirubin 0.4 mg/dL (0.0-0.2) Aspartate Amino Transf (AST/SGOT) 19 U/L (15-37) Alanine Aminotransferase (ALT/SGPT) 55 U/L (16-63) Alkaline Phosphatase 85 U/L (46-116) Creatine Kinase 74 U/L (39-308) Creatine Kinase MB (Mass) < 0.5 ng/mL (0.0-3.6) Creatine Kinase MB Relative Index % (0-4) Troponin I Quantitative < 0.017 ng/mL (0.000-0.055) OS-Xou-D-Type Natriuretic Peptide 70 pg/mL (0-124) Total Protein 7.7 g/dL (6.4-8.2) Albumin 3.6 g/dL (3.4-5.0) Albumin/Globulin Ratio 0.9 (1.0-1.7) Ethyl Alcohol Level < 10 mg/dL (0-10) Urine Collection Type Unknown Urine Color Purnima Urine Clarity Cloudy Urine pH 6.5 Urine Specific Hughes 1.020 Urine Protein Negative mg/dL (NEG-TRACE) Urine Glucose (UA) Negative mg/dL (NEG) Urine Ketones (Stick) 40 mg/dL (NEG) Urine Blood Negative (NEG) Urine Nitrite Negative (NEG) Urine Bilirubin Negative (NEG) Urine Urobilinogen Dipstick 4.0 mg/dL (0.2 mg/dL) Urine Leukocyte Esterase Negative (NEG) Urine RBC 1-2 /HPF (0-2) Urine WBC Occ /HPF (0-4) Urine Bacteria 0 /HPF (0-FEW) Urine Hyaline Casts Occasional /HPF Urine Mucus Marked /LPF Urine Opiates Screen Pos (NEG) Urine Methadone Screen Neg (NEG) Urine Barbiturates Neg (NEG) Urine Phencyclidine Screen Neg (NEG) Urine Amphetamine/Methamphetamine Neg (NEG) Urine Benzodiazepines Screen Neg (NEG) Urine Cocaine Screen Neg (NEG) Urine Cannabinoids Screen Neg (NEG) Urine Ethyl Alcohol Neg (NEG) Triglycerides Level 85 mg/dL (0-150) Cholesterol Level 185 mg/dL (0-200) LDL Cholesterol, Calculated 142 mg/dL (0-100) VLDL Cholesterol, Calculated 17 mg/dL (0-40) Non-HDL Cholesterol Calculated 159 mg/dL (0-129) HDL Cholesterol 26 mg/dL (40-60) Cholesterol/HDL Ratio 7.1 Laboratory Tests Test 06/07/18 21:20 06/08/18 10:45 Urine Collection Type Unknown Urine Color Purnima Urine Clarity Cloudy Urine pH 6.5 Urine Specific Hughes 1.020 Urine Protein Negative mg/dL (NEG-TRACE) Urine Glucose (UA) Negative mg/dL (NEG) Urine Ketones (Stick) 40 mg/dL (NEG) Urine Blood Negative (NEG) Urine Nitrite Negative (NEG) Urine Bilirubin Negative (NEG) Urine Urobilinogen Dipstick 4.0 mg/dL (0.2 mg/dL) Urine Leukocyte Esterase Negative (NEG) Urine RBC 1-2 /HPF (0-2) Urine WBC Occ /HPF (0-4) Urine Bacteria 0 /HPF (0-FEW) Urine Hyaline Casts Occasional /HPF Urine Mucus Marked /LPF Urine Opiates Screen Pos (NEG) Urine Methadone Screen Neg (NEG) Urine Barbiturates Neg (NEG) Urine Phencyclidine Screen Neg (NEG) Urine Amphetamine/Methamphetamine Neg (NEG) Urine Benzodiazepines Screen Neg (NEG) Urine Cocaine Screen Neg (NEG) Urine Cannabinoids Screen Neg (NEG) Urine Ethyl Alcohol Neg (NEG) White Blood Count 10.6 x10^3/uL (4.0-11.0) Red Blood Count 4.44 x10^6/uL (4.30-5.70) Hemoglobin 14.3 g/dL (13.0-17.5) Hematocrit 40.3 % (39.0-53.0) Mean Corpuscular Volume 91 fL (79-100) Mean Corpuscular Hemoglobin 32 pg (25-35) Mean Corpuscular Hemoglobin Concent 36 g/dL (31-37) Red Cell Distribution Width 13.2 % (11.5-14.5) Platelet Count 230 x10^3/uL (140-400) Neutrophils (%) (Auto) 77 % (31-73) Lymphocytes (%) (Auto) 15 % (24-48) Monocytes (%) (Auto) 8 % (0-9) Eosinophils (%) (Auto) 0 % (0-3) Basophils (%) (Auto) 0 % (0-3) Neutrophils # (Auto) 8.1 x10^3uL (1.8-7.7) Lymphocytes # (Auto) 1.5 x10^3/uL (1.0-4.8) Monocytes # (Auto) 0.8 x10^3/uL (0.0-1.1) Eosinophils # (Auto) 0.0 x10^3/uL (0.0-0.7) Basophils # (Auto) 0.0 x10^3/uL (0.0-0.2) Sodium Level 133 mmol/L (136-145) Potassium Level 3.7 mmol/L (3.5-5.1) Chloride Level 99 mmol/L (98-107) Carbon Dioxide Level 23 mmol/L (21-32) Anion Gap 11 (6-14) Blood Urea Nitrogen 7 mg/dL (8-26) Creatinine 0.8 mg/dL (0.7-1.3) Estimated GFR (Cockcroft-Gault) 99.6 Glucose Level 105 mg/dL (70-99) Calcium Level 8.5 mg/dL (8.5-10.1) Triglycerides Level 85 mg/dL (0-150) Cholesterol Level 185 mg/dL (0-200) LDL Cholesterol, Calculated 142 mg/dL (0-100) VLDL Cholesterol, Calculated 17 mg/dL (0-40) Non-HDL Cholesterol Calculated 159 mg/dL (0-129) HDL Cholesterol 26 mg/dL (40-60) Cholesterol/HDL Ratio 7.1 Medications Current Medications Sodium Chloride 1,000 ml @ 1,000 mls/hr 1X ONCE IV Last administered on at 12:33; Start 06/07/18 at 12:15; Stop 06/07/18 at 13:14; Status DC Ondansetron HCl (Zofran) 4 mg PRN Q8HRS PRN IV NAUSEA/VOMITING; Start 06/07/18 at 13:45; Stop 06/08/18 at 13:44 Morphine Sulfate (Morphine Sulfate) 4 mg PRN Q2HR PRN IV PAIN Last administered on 06/08/18at 06:47; Start 06/07/18 at 13:45; Stop 06/08/18 at 13:44 Potassium Chloride/Water 100 ml @ 100 mls/hr Q1H IV Last administered on 9/20/ 18at 19:51; Start 06/07/18 at 15:00; Stop 06/07/18 at 18:59; Status DC Multivitamins 10 ml/Thiamine HCl 100 mg/Folic Acid 1 mg/Sodium Chloride 1,011.2 ml @ 100 mls/ hr DAILY IV Last administered on 06/08/18at 09:47; Start at 16:00; Stop 06/11/18 at 19:07 Lorazepam (Ativan) 2 mg PRN Q1HR PRN IV For CIWA 8-14; Start 06/07/18 at 15:00 Lorazepam (Ativan) 4 mg PRN Q1HR PRN IV For CIWA 15 or greater; Start 06/07/18 at 15:00 Multivitamins 10 ml/Thiamine HCl 100 mg/Folic Acid 1 mg/Sodium Chloride 1,011.2 ml @ 100 mls/ hr DAILY IV ; Start 06/08/18 at 09:00; Stop 06/12/18 at 19:07; Status UNV Multivitamins (Thera M Plus) 1 tab DAILY PO ; Start 06/12/18 at 09:00 Folic Acid (Folic Acid) 1 mg DAILY PO ; Start 06/12/18 at 09:00 Lorazepam (Ativan) 4 mg PRN Q1HR PRN PO For CIWA 8-14; Start 06/07/18 at 17:30 Lorazepam (Ativan) 8 mg PRN Q1HR PRN PO For CIWA 15 or greater; Start 06/07/18 at 17:30 Lorazepam (Ativan) 4 mg PRN Q1HR PRN IV For CIWA 15 or greater; Start 06/07/18 at 17:30; Status UNV Haloperidol Lactate (Haldol Inj) 5 mg PRN Q4HRS PRN IVP Hallucinatns,Confusn, Delirium; Start 06/07/18 at 17:30 Diphenhydramine HCl (Benadryl) 25 mg PRN Q15MIN PRN IVP EPS symptoms 2'Haldol admin; Start 06/07/18 at 17:30 Clonidine HCl (Catapres) 0.1 mg PRN Q1HR PRN PO SBP > 180 or DBP > 100, MRX3; Start 06/07/18 at 17:30 Lorazepam (Ativan) 2 mg PRN Q15MIN PRN IV ; Start 06/07/18 at 17:30; Status UNV Lorazepam (Ativan) 4 mg PRN Q15MIN PRN IV ; Start 06/07/18 at 17:30; Status UNV Multivitamins 10 ml/Thiamine HCl 100 mg/Folic Acid 1 mg/Sodium Chloride 1,011.2 ml @ 100 mls/ hr DAILY IV ; Start 06/08/18 at 09:00; Stop 06/12/18 at 19:07; Status UNV Enalaprilat (Vasotec Inj) 1.25 mg PRN Q6HRS PRN IVP HYPERTENSION, SEE COMMENTS ; Start 06/08/18 at 09:30 Acetaminophen (Tylenol) 650 mg PRN Q6HRS PRN PO FEVER; Start 06/08/18 at 09:45 Ondansetron HCl (Zofran) 4 mg PRN Q6HRS PRN IV NAUSEA/VOMITING; Start 06/08/18 at 09:45 Morphine Sulfate (Morphine Sulfate) 2 mg PRN Q2HR PRN IV MODERATE TO SEVERE PAIN Last administered on 06/08/18at 11:56; Start 06/08/18 at 09:45 Tramadol HCl (Ultram) 50 mg PRN Q6HRS PRN PO MILD TO MODERATE PAIN; Start 06/08 at 09:45 Docusate Sodium (Colace) 100 mg PRN DAILY PRN PO CONSTIPATION; Start 06/08/18 at 09:45 Amino Acids/ Glycerin/ Electrolytes 1,000 ml @ 80 mls/hr [id number] IV Last administered on 06/08/18at 11:54; Start 06/08/18 at 10:30 Vitals/I & O Vital Sign - Last 24 Hours 06/07/18 06/07/18 06/07/18 06/07/18 15:00 16:15 19:00 22:19 Temp 97.8 99.5 97.8 99.5 Pulse 62 52 59 Resp 18 18 18 16 B/P (MAP) 122/75 (91) 145/91 (109) 145/82 (103) Pulse Ox 99 100 98 97 O2 Delivery Room Air Room Air Room Air Room Air 06/07/18 06/07/18 06/08/18 06/08/18 23:29 23:59 00:00 01:00 Pulse 51 54 Resp 20 16 16 16 B/P (MAP) 128/76 (93) 108/83 (91) Pulse Ox 96 96 96 96 O2 Delivery Room Air Room Air Room Air Room Air 06/08/18 06/08/18 06/08/18 06/08/18 02:00 03:00 04:00 05:00 Temp 98.7 98.7 Pulse 51 52 54 51 Resp 18 18 18 B/P (MAP) 116/62 (80) 132/65 (87) 65/ Pulse Ox 98 95 96 97 O2 Delivery Room Air Room Air Room Air Room Air 06/08/18 06/08/18 06/08/18 06:00 06:47 11:56 Pulse 57 Resp 18 20 13 B/P (MAP) 142/89 (106) Pulse Ox 96 97 O2 Delivery Room Air Room Air Intake and Output 06/07/18 06/07/18 06/08/18 15:00 23:00 07:00 Intake Total 1000 ml 825 ml 830 ml Output Total 500 ml 600 ml Balance 1000 ml 325 ml 230 ml EVAN FORD MD Jun 08, 2018 13:44
--- NOTE | 2018-06-08 17:26 | PDOC ---
Provider Note Provider Note reviewed follow up CT head- stable ok to transfer to floor d/w nurse and Dr. Nuñez will follow VIKAS MONTEIRO MD Jun 08, 2018 17:26
--- NOTE | 2018-06-08 18:10 | PDOC2 ---
NEUROLOGY CONSULT Date of Admission Date of Admission DATE: 06/08/18 TIME: 17:50 Reason for Consult Reason for Consult: NEUROLOGY CONSULTATION 06-07-2018 IMPRESSION: Large left frontal hematoma with surrounding edema. Contusion. ICH. Left parasagiital SDH. Headaches. Fall. Alcoholism. HTN. HLD. Degenerative C-spine disease. RECOMMENDATIONS/PLAN: Repeat HCT w/o contrast in a.m. BP control, no high than 150/85 mmHg. Avoid anticoagulant and antiplatelet agents this time. Lab: see orders. Treat medical diseases. Discussed with his daughter at bedside on 06/07/18. HISTORY OF THE PRESENT ILLNESS: This is a 58 -year-old male patient with history of heavy drinking of alcohol presented to the ER of [facility] complaining of 7 out of 10 frontal headache described as sharp and constant that has been going on since early Monday morning after he fell. Patient states he drank heavily on Monday night. He states he fell down but he doesn't remember how. Patient states he was seen by the PCP on Monday over his headache, he was started on azithromycin. He states his symptoms did not improve, he went to the urgent care clinic at the PCPs office, he was sent to the ED for evaluation. His HCT showed ICH described above. Past Medical History No Pertinent History PAST SURGERY HISTORY: No major surgery recently. Family History Alcohol Abuse, Depression ALLERGY: Unknown MEDICATIONS: Refer to [facility] SOCIAL HISTORY: Lives with his at home. Uses chewing tobacco Denies illicit drug use. He drinks alcohol heavily for many years. REVIEW OF SYSTEMS: Constitutional: No malnutrition, weight loss, cachexia. Head: Traumatic brain and head injury this time. Skin: No edema, or rash. Ear: No infection. Eyes: No vision loss or color blindness. Nose: No bleeding or purulent discharges. Hearing: No hearing decrease. Neck: No injury. Cardiac: No DC, arrhythmia. Pulmonary: No COPD. GI: No GI ulcer, GI bleeding. Urinary/genital: No dysuria, incontinence, urinary retention. Endocrinologic: No cousin face, craniofacial dysmorphism, polydactyly. Skeletomuscular: No muscular atrophy, deformity. Neurological: see HP. Psychiatric: Alcohol use/abuse. Otherwise, not [id number] review of systems. PHYSICAL EXAMINATION: General appearance is in subacute distress. HEENT: Normocephalic and nontraumatic. Eyes, nose, ears, and throat are unremarkable. Neck is supple. No lymphadenopathy. No bruits are heard over the carotid artery. No crepitus. Cardiovascular: S1, S2, regular rate and rhythm. Pulmonary: Clear to auscultation bilaterally. Abdomen: Bowel sounds are positive. Extremities: No rash, lesions, or edema. No restriction of range of motion NEUROLOGICAL EXAMINATION: Decreased response. Not oriented to time, place but knew his daughter at bedside. PERRL. EOMI. CN: no focal findings. Muscle tone: within normal. Muscle strength: 5- DTR: 2- Plantar reflex: Neutral response bilaterally Gait: not examined in bed. Sensory exam: no abnormal findings. Not able to access cerebellar signs. F-T-N test not performed due to not follow commands. Current Medications Current Medications Current Medications Sodium Chloride 1,000 ml @ 1,000 mls/hr 1X ONCE IV Last administered on at 12:33; Start 06/07/18 at 12:15; Stop 06/07/18 at 13:14; Status DC Ondansetron HCl (Zofran) 4 mg PRN Q8HRS PRN IV NAUSEA/VOMITING; Start 06/07/18 at 13:45; Stop 06/08/18 at 13:44; Status DC Morphine Sulfate (Morphine Sulfate) 4 mg PRN Q2HR PRN IV PAIN Last administered on 06/08/18at 06:47; Start 06/07/18 at 13:45; Stop 06/08/18 at 13:44 ; Status DC Potassium Chloride/Water 100 ml @ 100 mls/hr Q1H IV Last administered on at 19:51; Start 06/07/18 at 15:00; Stop 06/07/18 at 18:59; Status DC Multivitamins 10 ml/Thiamine HCl 100 mg/Folic Acid 1 mg/Sodium Chloride 1,011.2 ml @ 100 mls/ hr DAILY IV Last administered on 06/08/18at 09:47; Start at 16:00; Stop 06/11/18 at 19:07 Lorazepam (Ativan) 2 mg PRN Q1HR PRN IV For CIWA 8-14; Start 06/07/18 at 15:00 Lorazepam (Ativan) 4 mg PRN Q1HR PRN IV For CIWA 15 or greater; Start 06/07/18 at 15:00 Multivitamins 10 ml/Thiamine HCl 100 mg/Folic Acid 1 mg/Sodium Chloride 1,011.2 ml @ 100 mls/ hr DAILY IV ; Start 06/08/18 at 09:00; Stop 06/12/18 at 19:07; Status UNV Multivitamins (Thera M Plus) 1 tab DAILY PO ; Start 06/12/18 at 09:00 Folic Acid (Folic Acid) 1 mg DAILY PO ; Start 06/12/18 at 09:00 Lorazepam (Ativan) 4 mg PRN Q1HR PRN PO For CIWA 8-14; Start 06/07/18 at 17:30 Lorazepam (Ativan) 8 mg PRN Q1HR PRN PO For CIWA 15 or greater; Start 06/07/18 at 17:30 Lorazepam (Ativan) 4 mg PRN Q1HR PRN IV For CIWA 15 or greater; Start 06/07/18 at 17:30; Status UNV Haloperidol Lactate (Haldol Inj) 5 mg PRN Q4HRS PRN IVP Hallucinatns,Confusn, Delirium; Start 06/07/18 at 17:30 Diphenhydramine HCl (Benadryl) 25 mg PRN Q15MIN PRN IVP EPS symptoms 2'Haldol admin; Start 06/07/18 at 17:30 Clonidine HCl (Catapres) 0.1 mg PRN Q1HR PRN PO SBP > 180 or DBP > 100, MRX3; Start 06/07/18 at 17:30 Lorazepam (Ativan) 2 mg PRN Q15MIN PRN IV ; Start 06/07/18 at 17:30; Status UNV Lorazepam (Ativan) 4 mg PRN Q15MIN PRN IV ; Start 06/07/18 at 17:30; Status UNV Multivitamins 10 ml/Thiamine HCl 100 mg/Folic Acid 1 mg/Sodium Chloride 1,011.2 ml @ 100 mls/ hr DAILY IV ; Start 06/08/18 at 09:00; Stop 06/12/18 at 19:07; Status UNV Enalaprilat (Vasotec Inj) 1.25 mg PRN Q6HRS PRN IVP HYPERTENSION, SEE COMMENTS ; Start 06/08/18 at 09:30 Acetaminophen (Tylenol) 650 mg PRN Q6HRS PRN PO FEVER; Start 06/08/18 at 09:45 Ondansetron HCl (Zofran) 4 mg PRN Q6HRS PRN IV NAUSEA/VOMITING; Start 06/08/18 at 09:45 Morphine Sulfate (Morphine Sulfate) 2 mg PRN Q2HR PRN IV MODERATE TO SEVERE PAIN Last administered on 06/08/18at 16:14; Start 06/08/18 at 09:45 Tramadol HCl (Ultram) 50 mg PRN Q6HRS PRN PO MILD TO MODERATE PAIN; Start 06/08 at 09:45 Docusate Sodium (Colace) 100 mg PRN DAILY PRN PO CONSTIPATION; Start 06/08/18 at 09:45 Amino Acids/ Glycerin/ Electrolytes 1,000 ml @ 80 mls/hr [id number] IV Last administered on 06/08/18at 11:54; Start 06/08/18 at 10:30 Allergies Allergies: Allergies Coded Allergies Type Severity Reaction Last Updated Verified No Known Drug Allergies 06/07/18 No ROS Review of System The patient denies any associated fevers, chills, headache, ear pain, rhinorrhea , sore throat, stiff neck, productive cough, chest pain, shortness of breath, back or flank pain, abdominal pain, nausea, vomiting, diarrhea, constipation, dysuria, rash, numbness, weakness, tingling, incontinence, difficulty ambulating, or diaphoresis. Physical Exam Physical Exam General: Well developed, well nourished, no acute distress, well appearing HEENT: Pupils equally round and reactive to light, EOMI, no discharge, normal conjunctiva Neck: Supple, no nuchal rigidity, no JVD, trachea midline, no tenderness Cardiac: RRR, no murmurs, no gallops, no rubs Chest/Lungs: CTAB, no wheeze, no rhonchi, no crackles Abdomen: soft, non-distended, no guarding, no peritoneal signs, non-tender Back: No tenderness Extremities: no edema, pulses intact, non-tender,capillary refill <3 sec bilateral upper and lower extremities, Neuro: Alert and oriented x 4, no focal deficits, normal speech Vitals Vitals: Vital Signs Date Time Temp Pulse Resp B/P (MAP) Pulse Ox O2 Delivery O2 Flow Rate FiO2 06/08/18 16:45 18 94 Room Air 9/21/18 12:00 97.6 48 117/62 (80) 97.6 Labs Labs Laboratory Tests Test 06/07/18 12:22 06/07/18 12:25 06/07/18 21:20 06/08/18 10:45 Vitamin B12 Level 472 pg/mL (247-911) Thyroid Stimulating Hormone (TSH) 0.504 uIU/mL (0.358-3.74) White Blood Count 9.0 x10^3/uL (4.0-11.0) 10.6 x10^3/uL (4.0-11.0) Red Blood Count 4.86 x10^6/uL (4.30-5.70) 4.44 x10^6/uL (4.30-5.70) Hemoglobin 15.8 g/dL (13.0-17.5) 14.3 g/dL (13.0-17.5) Hematocrit 44.6 % (39.0-53.0) 40.3 % (39.0-53.0) Mean Corpuscular Volume 92 fL (79-100) 91 fL (79-100) Mean Corpuscular Hemoglobin 33 pg (25-35) 32 pg (25-35) Mean Corpuscular Hemoglobin Concent 35 g/dL (31-37) 36 g/dL (31-37) Red Cell Distribution Width 13.3 % (11.5-14.5) 13.2 % (11.5-14.5) Platelet Count 251 x10^3/uL (140-400) 230 x10^3/uL (140-400) Neutrophils (%) (Auto) 82 % (31-73) 77 % (31-73) Lymphocytes (%) (Auto) 12 % (24-48) 15 % (24-48) Monocytes (%) (Auto) 6 % (0-9) 8 % (0-9) Eosinophils (%) (Auto) 0 % (0-3) 0 % (0-3) Basophils (%) (Auto) 0 % (0-3) 0 % (0-3) Neutrophils # (Auto) 7.4 x10^3uL (1.8-7.7) 8.1 x10^3uL (1.8-7.7) Lymphocytes # (Auto) 1.0 x10^3/uL (1.0-4.8) 1.5 x10^3/uL (1.0-4.8) Monocytes # (Auto) 0.5 x10^3/uL (0.0-1.1) 0.8 x10^3/uL (0.0-1.1) Eosinophils # (Auto) 0.0 x10^3/uL (0.0-0.7) 0.0 x10^3/uL (0.0-0.7) Basophils # (Auto) 0.0 x10^3/uL (0.0-0.2) 0.0 x10^3/uL (0.0-0.2) Prothrombin Time 13.2 SEC (11.7-14.0) Prothromb Time International Ratio 1.1 (0.8-1.1) Activated Partial Thromboplast Time 27 SEC (24-38) Sodium Level 138 mmol/L (136-145) 133 mmol/L (136-145) Potassium Level 3.4 mmol/L (3.5-5.1) 3.7 mmol/L (3.5-5.1) Chloride Level 102 mmol/L (98-107) 99 mmol/L (98-107) Carbon Dioxide Level 27 mmol/L (21-32) 23 mmol/L (21-32) Anion Gap 9 (6-14) 11 (6-14) Blood Urea Nitrogen 9 mg/dL (8-26) 7 mg/dL (8-26) Creatinine 1.0 mg/dL (0.7-1.3) 0.8 mg/dL (0.7-1.3) Estimated GFR (Cockcroft-Gault) 77.0 99.6 BUN/Creatinine Ratio 9 (6-20) Glucose Level 117 mg/dL (70-99) 105 mg/dL (70-99) Calcium Level 8.8 mg/dL (8.5-10.1) 8.5 mg/dL (8.5-10.1) Magnesium Level 2.2 mg/dL (1.8-2.4) Total Bilirubin 1.3 mg/dL (0.2-1.0) Direct Bilirubin 0.4 mg/dL (0.0-0.2) Aspartate Amino Transf (AST/SGOT) 19 U/L (15-37) Alanine Aminotransferase (ALT/SGPT) 55 U/L (16-63) Alkaline Phosphatase 85 U/L (46-116) Creatine Kinase 74 U/L (39-308) Creatine Kinase MB (Mass) < 0.5 ng/mL (0.0-3.6) Creatine Kinase MB Relative Index % (0-4) Troponin I Quantitative < 0.017 ng/mL (0.000-0.055) [id number] Natriuretic Peptide 70 pg/mL (0-124) Total Protein 7.7 g/dL (6.4-8.2) Albumin 3.6 g/dL (3.4-5.0) Albumin/Globulin Ratio 0.9 (1.0-1.7) Ethyl Alcohol Level < 10 mg/dL (0-10) Urine Collection Type Unknown Urine Color Purnima Urine Clarity Cloudy Urine pH 6.5 Urine Specific [place] 1.020 Urine Protein Negative mg/dL (NEG-TRACE) Urine Glucose (UA) Negative mg/dL (NEG) Urine Ketones (Stick) 40 mg/dL (NEG) Urine Blood Negative (NEG) Urine Nitrite Negative (NEG) Urine Bilirubin Negative (NEG) Urine Urobilinogen Dipstick 4.0 mg/dL (0.2 mg/dL) Urine Leukocyte Esterase Negative (NEG) Urine RBC 1-2 /HPF (0-2) Urine WBC Occ /HPF (0-4) Urine Bacteria 0 /HPF (0-FEW) Urine Hyaline Casts Occasional /HPF Urine Mucus Marked /LPF Urine Opiates Screen Pos (NEG) Urine Methadone Screen Neg (NEG) Urine Barbiturates Neg (NEG) Urine Phencyclidine Screen Neg (NEG) Urine Amphetamine/Methamphetamine Neg (NEG) Urine Benzodiazepines Screen Neg (NEG) Urine Cocaine Screen Neg (NEG) Urine Cannabinoids Screen Neg (NEG) Urine Ethyl Alcohol Neg (NEG) Triglycerides Level 85 mg/dL (0-150) Cholesterol Level 185 mg/dL (0-200) LDL Cholesterol, Calculated 142 mg/dL (0-100) VLDL Cholesterol, Calculated 17 mg/dL (0-40) Non-HDL Cholesterol Calculated 159 mg/dL (0-129) HDL Cholesterol 26 mg/dL (40-60) Cholesterol/HDL Ratio 7.1 Laboratory Tests Test 06/07/18 21:20 06/08/18 10:45 Urine Collection Type Unknown Urine Color Purnima Urine Clarity Cloudy Urine pH 6.5 Urine Specific [place] 1.020 Urine Protein Negative mg/dL (NEG-TRACE) Urine Glucose (UA) Negative mg/dL (NEG) Urine Ketones (Stick) 40 mg/dL (NEG) Urine Blood Negative (NEG) Urine Nitrite Negative (NEG) Urine Bilirubin Negative (NEG) Urine Urobilinogen Dipstick 4.0 mg/dL (0.2 mg/dL) Urine Leukocyte Esterase Negative (NEG) Urine RBC 1-2 /HPF (0-2) Urine WBC Occ /HPF (0-4) Urine Bacteria 0 /HPF (0-FEW) Urine Hyaline Casts Occasional /HPF Urine Mucus Marked /LPF Urine Opiates Screen Pos (NEG) Urine Methadone Screen Neg (NEG) Urine Barbiturates Neg (NEG) Urine Phencyclidine Screen Neg (NEG) Urine Amphetamine/Methamphetamine Neg (NEG) Urine Benzodiazepines Screen Neg (NEG) Urine Cocaine Screen Neg (NEG) Urine Cannabinoids Screen Neg (NEG) Urine Ethyl Alcohol Neg (NEG) White Blood Count 10.6 x10^3/uL (4.0-11.0) Red Blood Count 4.44 x10^6/uL (4.30-5.70) Hemoglobin 14.3 g/dL (13.0-17.5) Hematocrit 40.3 % (39.0-53.0) Mean Corpuscular Volume 91 fL (79-100) Mean Corpuscular Hemoglobin 32 pg (25-35) Mean Corpuscular Hemoglobin Concent 36 g/dL (31-37) Red Cell Distribution Width 13.2 % (11.5-14.5) Platelet Count 230 x10^3/uL (140-400) Neutrophils (%) (Auto) 77 % (31-73) Lymphocytes (%) (Auto) 15 % (24-48) Monocytes (%) (Auto) 8 % (0-9) Eosinophils (%) (Auto) 0 % (0-3) Basophils (%) (Auto) 0 % (0-3) Neutrophils # (Auto) 8.1 x10^3uL (1.8-7.7) Lymphocytes # (Auto) 1.5 x10^3/uL (1.0-4.8) Monocytes # (Auto) 0.8 x10^3/uL (0.0-1.1) Eosinophils # (Auto) 0.0 x10^3/uL (0.0-0.7) Basophils # (Auto) 0.0 x10^3/uL (0.0-0.2) Sodium Level 133 mmol/L (136-145) Potassium Level 3.7 mmol/L (3.5-5.1) Chloride Level 99 mmol/L (98-107) Carbon Dioxide Level 23 mmol/L (21-32) Anion Gap 11 (6-14) Blood Urea Nitrogen 7 mg/dL (8-26) Creatinine 0.8 mg/dL (0.7-1.3) Estimated GFR (Cockcroft-Gault) 99.6 Glucose Level 105 mg/dL (70-99) Calcium Level 8.5 mg/dL (8.5-10.1) Triglycerides Level 85 mg/dL (0-150) Cholesterol Level 185 mg/dL (0-200) LDL Cholesterol, Calculated 142 mg/dL (0-100) VLDL Cholesterol, Calculated 17 mg/dL (0-40) Non-HDL Cholesterol Calculated 159 mg/dL (0-129) HDL Cholesterol 26 mg/dL (40-60) Cholesterol/HDL Ratio 7.1 OBIE MURRY MD Jun 08, 2018 18:10
--- NOTE | 2018-06-08 18:12 | PDOC ---
PROGRESS NOTES Assessment Assessment Large left frontal hematoma with surrounding edema. Contusion. ICH. Left parasagiital SDH. Headaches. Fall. Alcoholism. HTN. HLD. Degenerative C-spine disease. RECOMMENDATIONS/PLAN: BP control, no high than 150/85 mmHg. Avoid anticoagulant and antiplatelet agents this time. Lab: see orders. Treat medical diseases. Discussed with his and daughters at bedside on 06/08/18. HISTORY OF THE PRESENT ILLNESS: This is a 58 -year-old male patient with history of heavy drinking of alcohol presented to the ER of [facility] complaining of 7 out of 10 frontal headache described as sharp and constant that has been going on since early Monday morning after he fell. Patient states he drank heavily on Monday night. He states he fell down but he doesn't remember how. Patient states he was seen by the PCP on Monday over his headache, he was started on azithromycin. He states his symptoms did not improve, he went to the urgent care clinic at the PCPs office, he was sent to the ED for evaluation. His HCT showed ICH described above. Past Medical History No Pertinent History PAST SURGERY HISTORY: No major surgery recently. Family History Alcohol Abuse, Depression ALLERGY: Unknown MEDICATIONS: Refer to [facility] SOCIAL HISTORY: Lives with his at home. Uses chewing tobacco Denies illicit drug use. He drinks alcohol heavily for many years. REVIEW OF SYSTEMS: Constitutional: No malnutrition, weight loss, cachexia. Head: Traumatic brain and head injury this time. Skin: No edema, or rash. Ear: No infection. Eyes: No vision loss or color blindness. Nose: No bleeding or purulent discharges. Hearing: No hearing decrease. Neck: No injury. Cardiac: No PR, arrhythmia. Pulmonary: No COPD. GI: No GI ulcer, GI bleeding. Urinary/genital: No dysuria, incontinence, urinary retention. Endocrinologic: No cousin face, craniofacial dysmorphism, polydactyly. Skeletomuscular: No muscular atrophy, deformity. Neurological: see HP. Psychiatric: Alcohol use/abuse. Otherwise, not -frnlg review of systems. PHYSICAL EXAMINATION: General appearance is in subacute distress. HEENT: Normocephalic and nontraumatic. Eyes, nose, ears, and throat are unremarkable. Neck is supple. No lymphadenopathy. No bruits are heard over the carotid artery. No crepitus. Cardiovascular: S1, S2, regular rate and rhythm. Pulmonary: Clear to auscultation bilaterally. Abdomen: Bowel sounds are positive. Extremities: No rash, lesions, or edema. No restriction of range of motion NEUROLOGICAL EXAMINATION: Drowsiness. Not oriented to time, place but knew his family members. PERRL. EOMI. CN: no focal findings. Muscle tone: within normal. Muscle strength: 5- DTR: 2- Plantar reflex: Neutral response bilaterally Gait: not examined in bed. Sensory exam: no abnormal findings. Not able to access cerebellar signs. F-T-N test not performed due to not follow commands. Objective Objective Vital Signs Date Time Temp Pulse Resp B/P (MAP) Pulse Ox O2 Delivery O2 Flow Rate FiO2 06/08/18 16:45 18 94 Room Air 06/08/18 12:00 97.6 48 117/62 (80) 97.6 Intake and Output 06/08/18 07:00 Intake Total 2655 ml Output Total 1100 ml Balance 1555 ml Intake Oral 925 ml IV Total 1730 ml Output Urine Total 1100 ml Vitals Signs Vitals VS - Last 72 Hours, by Label Date Time Temp Pulse Resp B/P (MAP) Pulse Ox O2 Delivery O2 Flow Rate FiO2 06/08/18 16:45 18 94 Room Air 06/08/18 16:14 20 94 Room Air 06/08/18 12:00 97.6 48 15 117/62 (80) 96 Room Air 97.6 06/08/18 11:56 13 97 Room Air 06/08/18 11:00 54 14 148/89 (108) 98 Room Air 06/08/18 10:00 50 19 157/95 (115) 96 Room Air 06/08/18 09:00 64 16 148/87 (107) 97 Room Air 06/08/18 08:00 97.5 48 15 148/87 (107) 96 Room Air 97.5 06/08/18 07:00 50 11 151/93 (112) 95 Room Air 06/08/18 06:47 20 06/08/18 06:00 57 18 142/89 (106) 96 Room Air 06/08/18 05:00 51 18 65/ 97 Room Air 06/08/18 04:00 98.7 54 18 96 Room Air 98.7 06/08/18 03:00 52 18 132/65 (87) 95 Room Air 06/08/18 02:00 51 116/62 (80) 98 Room Air 06/08/18 01:00 54 16 108/83 (91) 96 Room Air 06/08/18 00:00 51 16 128/76 (93) 96 Room Air 06/07/18 23:59 16 96 Room Air 06/07/18 23:29 20 96 Room Air 06/07/18 22:19 99.5 59 16 145/82 (103) 97 Room Air 99.5 06/07/18 19:00 52 18 145/91 (109) 98 Room Air 06/07/18 16:15 18 100 Room Air 06/07/18 15:00 97.8 62 18 122/75 (91) 99 Room Air 97.8 06/07/18 13:11 56 20 98 06/07/18 12:32 61 14 98 06/07/18 12:02 98.1 57 18 156/87 (110) 98 Room Air 98.1 Laboratory Laboratory Laboratory Tests Test 06/07/18 21:20 06/08/18 10:45 Urine Collection Type Unknown Urine Color Purnima Urine Clarity Cloudy Urine pH 6.5 Urine Specific [place] 1.020 Urine Protein Negative mg/dL (NEG-TRACE) Urine Glucose (UA) Negative mg/dL (NEG) Urine Ketones (Stick) 40 mg/dL (NEG) Urine Blood Negative (NEG) Urine Nitrite Negative (NEG) Urine Bilirubin Negative (NEG) Urine Urobilinogen Dipstick 4.0 mg/dL (0.2 mg/dL) Urine Leukocyte Esterase Negative (NEG) Urine RBC 1-2 /HPF (0-2) Urine WBC Occ /HPF (0-4) Urine Bacteria 0 /HPF (0-FEW) Urine Hyaline Casts Occasional /HPF Urine Mucus Marked /LPF Urine Opiates Screen Pos (NEG) Urine Methadone Screen Neg (NEG) Urine Barbiturates Neg (NEG) Urine Phencyclidine Screen Neg (NEG) Urine Amphetamine/Methamphetamine Neg (NEG) Urine Benzodiazepines Screen Neg (NEG) Urine Cocaine Screen Neg (NEG) Urine Cannabinoids Screen Neg (NEG) Urine Ethyl Alcohol Neg (NEG) White Blood Count 10.6 x10^3/uL (4.0-11.0) Red Blood Count 4.44 x10^6/uL (4.30-5.70) Hemoglobin 14.3 g/dL (13.0-17.5) Hematocrit 40.3 % (39.0-53.0) Mean Corpuscular Volume 91 fL (79-100) Mean Corpuscular Hemoglobin 32 pg (25-35) Mean Corpuscular Hemoglobin Concent 36 g/dL (31-37) Red Cell Distribution Width 13.2 % (11.5-14.5) Platelet Count 230 x10^3/uL (140-400) Neutrophils (%) (Auto) 77 % (31-73) Lymphocytes (%) (Auto) 15 % (24-48) Monocytes (%) (Auto) 8 % (0-9) Eosinophils (%) (Auto) 0 % (0-3) Basophils (%) (Auto) 0 % (0-3) Neutrophils # (Auto) 8.1 x10^3uL (1.8-7.7) Lymphocytes # (Auto) 1.5 x10^3/uL (1.0-4.8) Monocytes # (Auto) 0.8 x10^3/uL (0.0-1.1) Eosinophils # (Auto) 0.0 x10^3/uL (0.0-0.7) Basophils # (Auto) 0.0 x10^3/uL (0.0-0.2) Sodium Level 133 mmol/L (136-145) Potassium Level 3.7 mmol/L (3.5-5.1) Chloride Level 99 mmol/L (98-107) Carbon Dioxide Level 23 mmol/L (21-32) Anion Gap 11 (6-14) Blood Urea Nitrogen 7 mg/dL (8-26) Creatinine 0.8 mg/dL (0.7-1.3) Estimated GFR (Cockcroft-Gault) 99.6 Glucose Level 105 mg/dL (70-99) Calcium Level 8.5 mg/dL (8.5-10.1) Triglycerides Level 85 mg/dL (0-150) Cholesterol Level 185 mg/dL (0-200) LDL Cholesterol, Calculated 142 mg/dL (0-100) VLDL Cholesterol, Calculated 17 mg/dL (0-40) Non-HDL Cholesterol Calculated 159 mg/dL (0-129) HDL Cholesterol 26 mg/dL (40-60) Cholesterol/HDL Ratio 7.1 Medication Medications Current Medications Acetaminophen (Tylenol) 650 mg PRN Q6HRS PRN PO FEVER; Start 9/21/18 at 09:45 Amino Acids/ Glycerin/ Electrolytes 1,000 ml @ 80 mls/hr [id number] IV Last administered on 06/08/18at 11:54; Start 06/08/18 at 10:30 Docusate Sodium (Colace) 100 mg PRN DAILY PRN PO CONSTIPATION; Start 06/08/18 at 09:45 Enalaprilat (Vasotec Inj) 1.25 mg PRN Q6HRS PRN IVP HYPERTENSION, SEE COMMENTS ; Start 06/08/18 at 09:30 Folic Acid (Folic Acid) 1 mg DAILY PO ; Start 06/12/18 at 09:00 Morphine Sulfate (Morphine Sulfate) 2 mg PRN Q2HR PRN IV MODERATE TO SEVERE PAIN Last administered on 06/08/18at 16:14; Start 06/08/18 at 09:45 Multivitamins (Thera M Plus) 1 tab DAILY PO ; Start 06/12/18 at 09:00 Multivitamins 10 ml/Thiamine HCl 100 mg/Folic Acid 1 mg/Sodium Chloride 1,011.2 ml @ 100 mls/ hr DAILY IV ; Start 06/08/18 at 09:00; Stop 06/12/18 at 19:07; Status UNV Multivitamins 10 ml/Thiamine HCl 100 mg/Folic Acid 1 mg/Sodium Chloride 1,011.2 ml @ 100 mls/ hr DAILY IV ; Start 06/08/18 at 09:00; Stop 06/12/18 at 19:07; Status UNV Ondansetron HCl (Zofran) 4 mg PRN Q6HRS PRN IV NAUSEA/VOMITING; Start 06/08/18 at 09:45 Tramadol HCl (Ultram) 50 mg PRN Q6HRS PRN PO MILD TO MODERATE PAIN; Start 06/08 at 09:45 Comment Review of Relevant I have reviewed the following items ranjan (where applicable) has been applied. OBIE MURRY MD Jun 08, 2018 18:12
[2018-06-09] VITALS (7 sets, daily range): BP systolic 103–151; BP diastolic 61–91
[2018-06-09] MEDS: AMINO AC 3%/ELECTROLYTE/GLYCER 1,000 ML IV SCH (02:21)
[2018-06-09] MEDS: MORPHINE SULFATE 2 MG/ML VIAL. IV PRN ×5 (03:48→20:23)
[2018-06-09 05:02] LABS: BASO % 0 % (0-3); EOS % 0 % (0-3); HEMATOCRIT 39.7 % (39.0-53.0); HEMOGLOBIN 14.2 g/dL (13.0-17.5); LYMPH # 1.4 x10^3/uL (1.0-4.8); LYMPH % 12 % (24-48); MEAN CORPUSCULAR HEMOGLOBIN 32 pg (25-35); MEAN CORPUSCULAR HGB CONC 36 g/dL (31-37); MEAN CORPUSCULAR VOLUME 90 fL (79-100); MONO # 0.9 x10^3/uL (0.0-1.1); MONO % 8 % (0-9); NEUT # 9.2 x10^3uL (1.8-7.7); NEUT % 80 % (31-73); PLATELET COUNT 237 x10^3/uL (140-400); RED BLOOD COUNT 4.42 x10^6/uL (4.30-5.70); RED CELL DISTRIBUTION WIDTH 13.2 % (11.5-14.5); WHITE BLOOD COUNT 11.5 x10^3/uL (4.0-11.0)
[2018-06-09 05:28] LABS: CALCIUM 8.4 mg/dL (8.5-10.1); CREATININE 0.7 mg/dL (0.7-1.3); GFR 116.2; POTASSIUM 3.5 mmol/L (3.5-5.1)
[2018-06-09] MEDS: IV NORMAL SALINE 1000ML BAG 1,000 ML IV SCH ×2 (08:05→18:00)
[2018-06-09] MEDS ORDERED: MAGNESIUM HYDROXIDE 2,400 MG/30 ML ORAL.SUSP. PO PRN ×2 (08:15→11:45)
[2018-06-09] MEDS ORDERED: LACTULOSE 20 GM/30 ML SOLUTION. PO PRN (08:15)
[2018-06-09] MEDS: MULTIVIT INFUSN,ADULT 4,VIT K 10 ML, THIAMINE INJ 100 MG, FOLIC ACID INJ 1 MG in IV NOR... IV SCH (09:06)
[2018-06-09] MEDS: DOCUSATE SODIUM 100 MG CAPSULE. PO SCH ×2 (09:13→21:00)
[2018-06-09] MEDS: SENNOSIDES/DOCUSATE 8.6/50MG TABLET. PO SCH ×2 (09:13→21:00)
[2018-06-09] MEDS: LISINOPRIL 20 MG TABLET PO SCH (09:13)
[2018-06-09] MEDS: LIDO:MAALOX 1:1 20 ML SINGLE DOSE. PO PRN ×2 (09:13→15:58)
--- NOTE | 2018-06-09 11:03 | PDOC ---
PROGRESS NOTES Subjective Subjective patient seen at 0900 awake , alert Objective Objective Vital Signs Date Time Temp Pulse Resp B/P (MAP) Pulse Ox O2 Delivery O2 Flow Rate FiO2 06/09/18 09:13 55 151/88 06/09/18 08:00 98.6 16 97 Room Air 98.6 Intake and Output 06/09/18 07:00 Intake Total 2203 ml Output Total 1150 ml Balance 1053 ml IV Total 2203 ml Output Urine Total 1150 ml # Voids 3 Physical Exam General: Alert Neuro: Other (aphasic except a few words) Assessment Assessment Problems Medical Problems: (1) ETOH abuse Status: Acute (2) Fall Status: Acute Plan Plan of Care Large left frontal contusion/ hematoma. d/w at length may transfer to floor SCDs Dr. Rudolph hilliard will follow Comment Review of Relevant I have reviewed the following items ranjan (where applicable) has been applied. Labs Laboratory Tests Test 06/07/18 12:22 06/07/18 12:25 06/07/18 21:20 06/08/18 10:45 Vitamin B12 Level 472 pg/mL (247-911) Thyroid Stimulating Hormone (TSH) 0.504 uIU/mL (0.358-3.74) White Blood Count 9.0 x10^3/uL (4.0-11.0) 10.6 x10^3/uL (4.0-11.0) Red Blood Count 4.86 x10^6/uL (4.30-5.70) 4.44 x10^6/uL (4.30-5.70) Hemoglobin 15.8 g/dL (13.0-17.5) 14.3 g/dL (13.0-17.5) Hematocrit 44.6 % (39.0-53.0) 40.3 % (39.0-53.0) Mean Corpuscular Volume 92 fL (79-100) 91 fL (79-100) Mean Corpuscular Hemoglobin 33 pg (25-35) 32 pg (25-35) Mean Corpuscular Hemoglobin Concent 35 g/dL (31-37) 36 g/dL (31-37) Red Cell Distribution Width 13.3 % (11.5-14.5) 13.2 % (11.5-14.5) Platelet Count 251 x10^3/uL (140-400) 230 x10^3/uL (140-400) Neutrophils (%) (Auto) 82 % (31-73) 77 % (31-73) Lymphocytes (%) (Auto) 12 % (24-48) 15 % (24-48) Monocytes (%) (Auto) 6 % (0-9) 8 % (0-9) Eosinophils (%) (Auto) 0 % (0-3) 0 % (0-3) Basophils (%) (Auto) 0 % (0-3) 0 % (0-3) Neutrophils # (Auto) 7.4 x10^3uL (1.8-7.7) 8.1 x10^3uL (1.8-7.7) Lymphocytes # (Auto) 1.0 x10^3/uL (1.0-4.8) 1.5 x10^3/uL (1.0-4.8) Monocytes # (Auto) 0.5 x10^3/uL (0.0-1.1) 0.8 x10^3/uL (0.0-1.1) Eosinophils # (Auto) 0.0 x10^3/uL (0.0-0.7) 0.0 x10^3/uL (0.0-0.7) Basophils # (Auto) 0.0 x10^3/uL (0.0-0.2) 0.0 x10^3/uL (0.0-0.2) Prothrombin Time 13.2 SEC (11.7-14.0) Prothromb Time International Ratio 1.1 (0.8-1.1) Activated Partial Thromboplast Time 27 SEC (24-38) Sodium Level 138 mmol/L (136-145) 133 mmol/L (136-145) Potassium Level 3.4 mmol/L (3.5-5.1) 3.7 mmol/L (3.5-5.1) Chloride Level 102 mmol/L (98-107) 99 mmol/L (98-107) Carbon Dioxide Level 27 mmol/L (21-32) 23 mmol/L (21-32) Anion Gap 9 (6-14) 11 (6-14) Blood Urea Nitrogen 9 mg/dL (8-26) 7 mg/dL (8-26) Creatinine 1.0 mg/dL (0.7-1.3) 0.8 mg/dL (0.7-1.3) Estimated GFR (Cockcroft-Gault) 77.0 99.6 BUN/Creatinine Ratio 9 (6-20) Glucose Level 117 mg/dL (70-99) 105 mg/dL (70-99) Calcium Level 8.8 mg/dL (8.5-10.1) 8.5 mg/dL (8.5-10.1) Magnesium Level 2.2 mg/dL (1.8-2.4) Total Bilirubin 1.3 mg/dL (0.2-1.0) Direct Bilirubin 0.4 mg/dL (0.0-0.2) Aspartate Amino Transf (AST/SGOT) 19 U/L (15-37) Alanine Aminotransferase (ALT/SGPT) 55 U/L (16-63) Alkaline Phosphatase 85 U/L (46-116) Creatine Kinase 74 U/L (39-308) Creatine Kinase MB (Mass) < 0.5 ng/mL (0.0-3.6) Creatine Kinase MB Relative Index % (0-4) Troponin I Quantitative < 0.017 ng/mL (0.000-0.055) FR-Lxw-S-Type Natriuretic Peptide 70 pg/mL (0-124) Total Protein 7.7 g/dL (6.4-8.2) Albumin 3.6 g/dL (3.4-5.0) Albumin/Globulin Ratio 0.9 (1.0-1.7) Ethyl Alcohol Level < 10 mg/dL (0-10) Urine Collection Type Unknown Urine Color Purnima Urine Clarity Cloudy Urine pH 6.5 Urine Specific [place] 1.020 Urine Protein Negative mg/dL (NEG-TRACE) Urine Glucose (UA) Negative mg/dL (NEG) Urine Ketones (Stick) 40 mg/dL (NEG) Urine Blood Negative (NEG) Urine Nitrite Negative (NEG) Urine Bilirubin Negative (NEG) Urine Urobilinogen Dipstick 4.0 mg/dL (0.2 mg/dL) Urine Leukocyte Esterase Negative (NEG) Urine RBC 1-2 /HPF (0-2) Urine WBC Occ /HPF (0-4) Urine Bacteria 0 /HPF (0-FEW) Urine Hyaline Casts Occasional /HPF Urine Mucus Marked /LPF Urine Opiates Screen Pos (NEG) Urine Methadone Screen Neg (NEG) Urine Barbiturates Neg (NEG) Urine Phencyclidine Screen Neg (NEG) Urine Amphetamine/Methamphetamine Neg (NEG) Urine Benzodiazepines Screen Neg (NEG) Urine Cocaine Screen Neg (NEG) Urine Cannabinoids Screen Neg (NEG) Urine Ethyl Alcohol Neg (NEG) Triglycerides Level 85 mg/dL (0-150) Cholesterol Level 185 mg/dL (0-200) LDL Cholesterol, Calculated 142 mg/dL (0-100) VLDL Cholesterol, Calculated 17 mg/dL (0-40) Non-HDL Cholesterol Calculated 159 mg/dL (0-129) HDL Cholesterol 26 mg/dL (40-60) Cholesterol/HDL Ratio 7.1 Test 06/09/18 04:00 White Blood Count 11.5 x10^3/uL (4.0-11.0) Red Blood Count 4.42 x10^6/uL (4.30-5.70) Hemoglobin 14.2 g/dL (13.0-17.5) Hematocrit 39.7 % (39.0-53.0) Mean Corpuscular Volume 90 fL (79-100) Mean Corpuscular Hemoglobin 32 pg (25-35) Mean Corpuscular Hemoglobin Concent 36 g/dL (31-37) Red Cell Distribution Width 13.2 % (11.5-14.5) Platelet Count 237 x10^3/uL (140-400) Neutrophils (%) (Auto) 80 % (31-73) Lymphocytes (%) (Auto) 12 % (24-48) Monocytes (%) (Auto) 8 % (0-9) Eosinophils (%) (Auto) 0 % (0-3) Basophils (%) (Auto) 0 % (0-3) Neutrophils # (Auto) 9.2 x10^3uL (1.8-7.7) Lymphocytes # (Auto) 1.4 x10^3/uL (1.0-4.8) Monocytes # (Auto) 0.9 x10^3/uL (0.0-1.1) Eosinophils # (Auto) 0.0 x10^3/uL (0.0-0.7) Basophils # (Auto) 0.0 x10^3/uL (0.0-0.2) Sodium Level 127 mmol/L (136-145) Potassium Level 3.5 mmol/L (3.5-5.1) Chloride Level 94 mmol/L (98-107) Carbon Dioxide Level 21 mmol/L (21-32) Anion Gap 12 (6-14) Blood Urea Nitrogen 10 mg/dL (8-26) Creatinine 0.7 mg/dL (0.7-1.3) Estimated GFR (Cockcroft-Gault) 116.2 Glucose Level 117 mg/dL (70-99) Calcium Level 8.4 mg/dL (8.5-10.1) Laboratory Tests Test 06/09/18 04:00 White Blood Count 11.5 x10^3/uL (4.0-11.0) Red Blood Count 4.42 x10^6/uL (4.30-5.70) Hemoglobin 14.2 g/dL (13.0-17.5) Hematocrit 39.7 % (39.0-53.0) Mean Corpuscular Volume 90 fL (79-100) Mean Corpuscular Hemoglobin 32 pg (25-35) Mean Corpuscular Hemoglobin Concent 36 g/dL (31-37) Red Cell Distribution Width 13.2 % (11.5-14.5) Platelet Count 237 x10^3/uL (140-400) Neutrophils (%) (Auto) 80 % (31-73) Lymphocytes (%) (Auto) 12 % (24-48) Monocytes (%) (Auto) 8 % (0-9) Eosinophils (%) (Auto) 0 % (0-3) Basophils (%) (Auto) 0 % (0-3) Neutrophils # (Auto) 9.2 x10^3uL (1.8-7.7) Lymphocytes # (Auto) 1.4 x10^3/uL (1.0-4.8) Monocytes # (Auto) 0.9 x10^3/uL (0.0-1.1) Eosinophils # (Auto) 0.0 x10^3/uL (0.0-0.7) Basophils # (Auto) 0.0 x10^3/uL (0.0-0.2) Sodium Level 127 mmol/L (136-145) Potassium Level 3.5 mmol/L (3.5-5.1) Chloride Level 94 mmol/L (98-107) Carbon Dioxide Level 21 mmol/L (21-32) Anion Gap 12 (6-14) Blood Urea Nitrogen 10 mg/dL (8-26) Creatinine 0.7 mg/dL (0.7-1.3) Estimated GFR (Cockcroft-Gault) 116.2 Glucose Level 117 mg/dL (70-99) Calcium Level 8.4 mg/dL (8.5-10.1) Medications Current Medications Sodium Chloride 1,000 ml @ 1,000 mls/hr 1X ONCE IV Last administered on at 12:33; Start 06/07/18 at 12:15; Stop 06/07/18 at 13:14; Status DC Ondansetron HCl (Zofran) 4 mg PRN Q8HRS PRN IV NAUSEA/VOMITING; Start 06/07/18 at 13:45; Stop 06/08/18 at 13:44; Status DC Morphine Sulfate (Morphine Sulfate) 4 mg PRN Q2HR PRN IV PAIN Last administered on 06/08/18at 06:47; Start 06/07/18 at 13:45; Stop 06/08/18 at 13:44 ; Status DC Potassium Chloride/Water 100 ml @ 100 mls/hr Q1H IV Last administered on at 19:51; Start 06/07/18 at 15:00; Stop 06/07/18 at 18:59; Status DC Multivitamins 10 ml/Thiamine HCl 100 mg/Folic Acid 1 mg/Sodium Chloride 1,011.2 ml @ 100 mls/ hr DAILY IV Last administered on 06/09/18at 09:06; Start at 16:00; Stop 06/11/18 at 19:07 Lorazepam (Ativan) 2 mg PRN Q1HR PRN IV For CIWA 8-14; Start 06/07/18 at 15:00 Lorazepam (Ativan) 4 mg PRN Q1HR PRN IV For CIWA 15 or greater; Start 06/07/18 at 15:00 Multivitamins 10 ml/Thiamine HCl 100 mg/Folic Acid 1 mg/Sodium Chloride 1,011.2 ml @ 100 mls/ hr DAILY IV ; Start 06/08/18 at 09:00; Stop 06/12/18 at 19:07; Status UNV Multivitamins (Thera M Plus) 1 tab DAILY PO ; Start 06/12/18 at 09:00 Folic Acid (Folic Acid) 1 mg DAILY PO ; Start 06/12/18 at 09:00 Lorazepam (Ativan) 4 mg PRN Q1HR PRN PO For CIWA 8-14; Start 06/07/18 at 17:30 Lorazepam (Ativan) 8 mg PRN Q1HR PRN PO For CIWA 15 or greater; Start 06/07/18 at 17:30 Lorazepam (Ativan) 4 mg PRN Q1HR PRN IV For CIWA 15 or greater; Start 06/07/18 at 17:30; Status UNV Haloperidol Lactate (Haldol Inj) 5 mg PRN Q4HRS PRN IVP Hallucinatns,Confusn, Delirium; Start 06/07/18 at 17:30 Diphenhydramine HCl (Benadryl) 25 mg PRN Q15MIN PRN IVP EPS symptoms 2'Haldol admin; Start 06/07/18 at 17:30 Clonidine HCl (Catapres) 0.1 mg PRN Q1HR PRN PO SBP > 180 or DBP > 100, MRX3; Start 06/07/18 at 17:30 Lorazepam (Ativan) 2 mg PRN Q15MIN PRN IV ; Start 06/07/18 at 17:30; Status UNV Lorazepam (Ativan) 4 mg PRN Q15MIN PRN IV ; Start 06/07/18 at 17:30; Status UNV Multivitamins 10 ml/Thiamine HCl 100 mg/Folic Acid 1 mg/Sodium Chloride 1,011.2 ml @ 100 mls/ hr DAILY IV ; Start 06/08/18 at 09:00; Stop 06/12/18 at 19:07; Status UNV Enalaprilat (Vasotec Inj) 1.25 mg PRN Q6HRS PRN IVP HYPERTENSION, SEE COMMENTS Last administered on 06/08/18at 20:14; Start 06/08/18 at 09:30 Acetaminophen (Tylenol) 650 mg PRN Q6HRS PRN PO FEVER; Start 06/08/18 at 09:45 Ondansetron HCl (Zofran) 4 mg PRN Q6HRS PRN IV NAUSEA/VOMITING; Start 06/08/18 at 09:45 Morphine Sulfate (Morphine Sulfate) 2 mg PRN Q2HR PRN IV MODERATE TO SEVERE PAIN Last administered on 06/09/18at 07:25; Start 06/08/18 at 09:45 Tramadol HCl (Ultram) 50 mg PRN Q6HRS PRN PO MILD TO MODERATE PAIN; Start 06/08 at 09:45 Docusate Sodium (Colace) 100 mg PRN DAILY PRN PO CONSTIPATION; Start 06/08/18 at 09:45 Amino Acids/ Glycerin/ Electrolytes 1,000 ml @ 80 mls/hr [id number] IV Last administered on 06/09/18at 02:21; Start 06/08/18 at 10:30; Stop 06/09/18 at 08:01 ; Status DC Sodium Chloride 1,000 ml @ 100 mls/hr Q10H IV Last administered on 06/09/18at 08:05; Start 06/09/18 at 08:00 Lisinopril (Prinivil) 20 mg DAILY PO Last administered on 06/09/18at 09:13; Start 06/09/18 at 09:00 Senna/Docusate Sodium (Senna Plus) 1 tab BID PO Last administered on 06/09/18at 09:13; Start 06/09/18 at 09:00 Docusate Sodium (Colace) 100 mg BID PO Last administered on 06/09/18at 09:13; Start 06/09/18 at 09:00 Magnesium Hydroxide (Milk Of Magnesia) 2,400 mg PRN Q12HR PRN PO CONSTIPATION; Start 06/09/18 at 08:15 Lactulose (Lactulose) 20 gm PRN Q12HR PRN PO CONSTIPATION; Start 06/09/18 at 08 :15 Influenza Virus Vaccine (Afluria Trivalent [id number] Syringe) 0.5 ml ONCE ONCE VAX IM Last administered on 06/09/18at 09:08; Start 06/09/18 at 10:00; Stop at 10:01; Status DC Multi-Ingredient Mouthwash/Gargle (Gi Cocktail) 20 ml PRN Q15MIN PRN PO CHEST PAIN Last administered on 06/09/18at 09:13; Start 06/09/18 at 09:15 Vitals/I & O Vital Sign - Last 24 Hours 06/08/18 06/08/18 06/08/18 06/08/18 11:00 11:56 12:00 16:00 Temp 97.6 97.6 Pulse 54 48 54 Resp 14 13 15 18 B/P (MAP) 148/89 (108) 117/62 (80) 139/87 (104) Pulse Ox 98 97 96 96 O2 Delivery Room Air Room Air Room Air Room Air 06/08/18 06/08/18 06/08/18 06/08/18 16:14 20:00 20:14 20:48 Temp 98.9 98.9 Pulse 50 58 Resp 20 18 18 B/P (MAP) 148/76 (100) 191/84 Pulse Ox 94 98 98 O2 Delivery Room Air Room Air Room Air 06/09/18 06/09/18 06/09/18 06/09/18 00:00 03:48 04:00 07:25 Temp 98.8 98.6 98.8 98.6 Pulse 60 58 Resp 16 15 15 18 B/P (MAP) 151/68 (95) 140/91 (107) Pulse Ox 97 97 97 98 O2 Delivery Room Air Room Air Room Air Room Air 06/09/18 06/09/18 06/09/18 07:55 08:00 09:13 Temp 98.6 98.6 Pulse 55 55 Resp 18 16 B/P (MAP) 151/88 (109) 151/88 Pulse Ox 96 97 O2 Delivery Room Air Room Air Intake and Output 06/08/18 06/08/18 06/09/18 15:00 23:00 07:00 Intake Total 2203 ml Output Total 350 ml 800 ml Balance -350 ml -800 ml 2203 ml VIKAS MONTEIRO MD Jun 09, 2018 11:03
[2018-06-09] MEDS ORDERED: MAGNESIUM CITRATE 296 ML SOLUTION. PO PRN (11:45)
--- NOTE | 2018-06-09 12:17 | PDOC ---
PROGRESS NOTES Chief Complaint Chief Complaint left frontal hemorrhage with contusion, edema, from fall traumatic possible ETOH abuse AMS, with brain hemorrhage, with some confusion and memory issues constipation HTN hyponatremia plan: fu with neurosx, neuro no sx for now ok to transfer out of ICU CT repeated today stable PTOT keep BP <150/90 with iv meds prn,add lisinopril 20mg daily low po intake, dc PPN, add NS, cont banana bag daily talked to and daughter at bedside, pt has unsteady gait, will see if can dc home or rehab on Monday History of Present Illness History of Present Illness ROS: no fever, chills, sob or chest pain headache much better talks slow, walk slow, slightly better today not like normal low po intake Na 127 Vitals Vitals Vital Signs Date Time Temp Pulse Resp B/P (MAP) Pulse Ox O2 Delivery O2 Flow Rate FiO2 06/09/18 09:13 55 151/88 06/09/18 08:00 98.6 16 97 Room Air 98.6 Physical Exam Physical Exam talks very slow, not answer some questions, bl strength ok General: Alert Heart: Regular rate, Normal S1, Normal S2 Lungs: Clear Abdomen: Normal bowel sounds, Soft Extremities: No clubbing, No cyanosis Skin: No rashes Labs LABS Laboratory Tests Test 06/09/18 04:00 White Blood Count 11.5 x10^3/uL (4.0-11.0) Red Blood Count 4.42 x10^6/uL (4.30-5.70) Hemoglobin 14.2 g/dL (13.0-17.5) Hematocrit 39.7 % (39.0-53.0) Mean Corpuscular Volume 90 fL (79-100) Mean Corpuscular Hemoglobin 32 pg (25-35) Mean Corpuscular Hemoglobin Concent 36 g/dL (31-37) Red Cell Distribution Width 13.2 % (11.5-14.5) Platelet Count 237 x10^3/uL (140-400) Neutrophils (%) (Auto) 80 % (31-73) Lymphocytes (%) (Auto) 12 % (24-48) Monocytes (%) (Auto) 8 % (0-9) Eosinophils (%) (Auto) 0 % (0-3) Basophils (%) (Auto) 0 % (0-3) Neutrophils # (Auto) 9.2 x10^3uL (1.8-7.7) Lymphocytes # (Auto) 1.4 x10^3/uL (1.0-4.8) Monocytes # (Auto) 0.9 x10^3/uL (0.0-1.1) Eosinophils # (Auto) 0.0 x10^3/uL (0.0-0.7) Basophils # (Auto) 0.0 x10^3/uL (0.0-0.2) Sodium Level 127 mmol/L (136-145) Potassium Level 3.5 mmol/L (3.5-5.1) Chloride Level 94 mmol/L (98-107) Carbon Dioxide Level 21 mmol/L (21-32) Anion Gap 12 (6-14) Blood Urea Nitrogen 10 mg/dL (8-26) Creatinine 0.7 mg/dL (0.7-1.3) Estimated GFR (Cockcroft-Gault) 116.2 Glucose Level 117 mg/dL (70-99) Calcium Level 8.4 mg/dL (8.5-10.1) Assessment and Plan Assessmemt and Plan Problems Medical Problems: (1) ETOH abuse Status: Acute (2) Fall Status: Acute Comment Review of Relevant I have reviewed the following items ranjan (where applicable) has been applied. Labs Laboratory Tests Test 06/07/18 12:22 06/07/18 12:25 06/07/18 16:45 06/07/18 21:20 Vitamin B12 Level 472 pg/mL (247-911) Thyroid Stimulating Hormone (TSH) 0.504 uIU/mL (0.358-3.74) White Blood Count 9.0 x10^3/uL (4.0-11.0) Red Blood Count 4.86 x10^6/uL (4.30-5.70) Hemoglobin 15.8 g/dL (13.0-17.5) Hematocrit 44.6 % (39.0-53.0) Mean Corpuscular Volume 92 fL (79-100) Mean Corpuscular Hemoglobin 33 pg (25-35) Mean Corpuscular Hemoglobin Concent 35 g/dL (31-37) Red Cell Distribution Width 13.3 % (11.5-14.5) Platelet Count 251 x10^3/uL (140-400) Neutrophils (%) (Auto) 82 % (31-73) Lymphocytes (%) (Auto) 12 % (24-48) Monocytes (%) (Auto) 6 % (0-9) Eosinophils (%) (Auto) 0 % (0-3) Basophils (%) (Auto) 0 % (0-3) Neutrophils # (Auto) 7.4 x10^3uL (1.8-7.7) Lymphocytes # (Auto) 1.0 x10^3/uL (1.0-4.8) Monocytes # (Auto) 0.5 x10^3/uL (0.0-1.1) Eosinophils # (Auto) 0.0 x10^3/uL (0.0-0.7) Basophils # (Auto) 0.0 x10^3/uL (0.0-0.2) Prothrombin Time 13.2 SEC (11.7-14.0) Prothromb Time International Ratio 1.1 (0.8-1.1) Activated Partial Thromboplast Time 27 SEC (24-38) Sodium Level 138 mmol/L (136-145) Potassium Level 3.4 mmol/L (3.5-5.1) Chloride Level 102 mmol/L (98-107) Carbon Dioxide Level 27 mmol/L (21-32) Anion Gap 9 (6-14) Blood Urea Nitrogen 9 mg/dL (8-26) Creatinine 1.0 mg/dL (0.7-1.3) Estimated GFR (Cockcroft-Gault) 77.0 BUN/Creatinine Ratio 9 (6-20) Glucose Level 117 mg/dL (70-99) Calcium Level 8.8 mg/dL (8.5-10.1) Magnesium Level 2.2 mg/dL (1.8-2.4) Total Bilirubin 1.3 mg/dL (0.2-1.0) Direct Bilirubin 0.4 mg/dL (0.0-0.2) Aspartate Amino Transf (AST/SGOT) 19 U/L (15-37) Alanine Aminotransferase (ALT/SGPT) 55 U/L (16-63) Alkaline Phosphatase 85 U/L (46-116) Creatine Kinase 74 U/L (39-308) Creatine Kinase MB (Mass) < 0.5 ng/mL (0.0-3.6) Creatine Kinase MB Relative Index % (0-4) Troponin I Quantitative < 0.017 ng/mL (0.000-0.055) MT-Bnh-A-Type Natriuretic Peptide 70 pg/mL (0-124) Total Protein 7.7 g/dL (6.4-8.2) Albumin 3.6 g/dL (3.4-5.0) Albumin/Globulin Ratio 0.9 (1.0-1.7) Ethyl Alcohol Level < 10 mg/dL (0-10) Nasal Screen MRSA (PCR) Negative (Negative) Urine Collection Type Unknown Urine Color Purnima Urine Clarity Cloudy Urine pH 6.5 Urine Specific [place] 1.020 Urine Protein Negative mg/dL (NEG-TRACE) Urine Glucose (UA) Negative mg/dL (NEG) Urine Ketones (Stick) 40 mg/dL (NEG) Urine Blood Negative (NEG) Urine Nitrite Negative (NEG) Urine Bilirubin Negative (NEG) Urine Urobilinogen Dipstick 4.0 mg/dL (0.2 mg/dL) Urine Leukocyte Esterase Negative (NEG) Urine RBC 1-2 /HPF (0-2) Urine WBC Occ /HPF (0-4) Urine Bacteria 0 /HPF (0-FEW) Urine Hyaline Casts Occasional /HPF Urine Mucus Marked /LPF Urine Opiates Screen Pos (NEG) Urine Methadone Screen Neg (NEG) Urine Barbiturates Neg (NEG) Urine Phencyclidine Screen Neg (NEG) Urine Amphetamine/Methamphetamine Neg (NEG) Urine Benzodiazepines Screen Neg (NEG) Urine Cocaine Screen Neg (NEG) Urine Cannabinoids Screen Neg (NEG) Urine Ethyl Alcohol Neg (NEG) Test 06/08/18 10:45 06/09/18 04:00 White Blood Count 10.6 x10^3/uL (4.0-11.0) 11.5 x10^3/uL (4.0-11.0) Red Blood Count 4.44 x10^6/uL (4.30-5.70) 4.42 x10^6/uL (4.30-5.70) Hemoglobin 14.3 g/dL (13.0-17.5) 14.2 g/dL (13.0-17.5) Hematocrit 40.3 % (39.0-53.0) 39.7 % (39.0-53.0) Mean Corpuscular Volume 91 fL (79-100) 90 fL (79-100) Mean Corpuscular Hemoglobin 32 pg (25-35) 32 pg (25-35) Mean Corpuscular Hemoglobin Concent 36 g/dL (31-37) 36 g/dL (31-37) Red Cell Distribution Width 13.2 % (11.5-14.5) 13.2 % (11.5-14.5) Platelet Count 230 x10^3/uL (140-400) 237 x10^3/uL (140-400) Neutrophils (%) (Auto) 77 % (31-73) 80 % (31-73) Lymphocytes (%) (Auto) 15 % (24-48) 12 % (24-48) Monocytes (%) (Auto) 8 % (0-9) 8 % (0-9) Eosinophils (%) (Auto) 0 % (0-3) 0 % (0-3) Basophils (%) (Auto) 0 % (0-3) 0 % (0-3) Neutrophils # (Auto) 8.1 x10^3uL (1.8-7.7) 9.2 x10^3uL (1.8-7.7) Lymphocytes # (Auto) 1.5 x10^3/uL (1.0-4.8) 1.4 x10^3/uL (1.0-4.8) Monocytes # (Auto) 0.8 x10^3/uL (0.0-1.1) 0.9 x10^3/uL (0.0-1.1) Eosinophils # (Auto) 0.0 x10^3/uL (0.0-0.7) 0.0 x10^3/uL (0.0-0.7) Basophils # (Auto) 0.0 x10^3/uL (0.0-0.2) 0.0 x10^3/uL (0.0-0.2) Sodium Level 133 mmol/L (136-145) 127 mmol/L (136-145) Potassium Level 3.7 mmol/L (3.5-5.1) 3.5 mmol/L (3.5-5.1) Chloride Level 99 mmol/L (98-107) 94 mmol/L (98-107) Carbon Dioxide Level 23 mmol/L (21-32) 21 mmol/L (21-32) Anion Gap 11 (6-14) 12 (6-14) Blood Urea Nitrogen 7 mg/dL (8-26) 10 mg/dL (8-26) Creatinine 0.8 mg/dL (0.7-1.3) 0.7 mg/dL (0.7-1.3) Estimated GFR (Cockcroft-Gault) 99.6 116.2 Glucose Level 105 mg/dL (70-99) 117 mg/dL (70-99) Calcium Level 8.5 mg/dL (8.5-10.1) 8.4 mg/dL (8.5-10.1) Triglycerides Level 85 mg/dL (0-150) Cholesterol Level 185 mg/dL (0-200) LDL Cholesterol, Calculated 142 mg/dL (0-100) VLDL Cholesterol, Calculated 17 mg/dL (0-40) Non-HDL Cholesterol Calculated 159 mg/dL (0-129) HDL Cholesterol 26 mg/dL (40-60) Cholesterol/HDL Ratio 7.1 Laboratory Tests Test 06/09/18 04:00 White Blood Count 11.5 x10^3/uL (4.0-11.0) Red Blood Count 4.42 x10^6/uL (4.30-5.70) Hemoglobin 14.2 g/dL (13.0-17.5) Hematocrit 39.7 % (39.0-53.0) Mean Corpuscular Volume 90 fL (79-100) Mean Corpuscular Hemoglobin 32 pg (25-35) Mean Corpuscular Hemoglobin Concent 36 g/dL (31-37) Red Cell Distribution Width 13.2 % (11.5-14.5) Platelet Count 237 x10^3/uL (140-400) Neutrophils (%) (Auto) 80 % (31-73) Lymphocytes (%) (Auto) 12 % (24-48) Monocytes (%) (Auto) 8 % (0-9) Eosinophils (%) (Auto) 0 % (0-3) Basophils (%) (Auto) 0 % (0-3) Neutrophils # (Auto) 9.2 x10^3uL (1.8-7.7) Lymphocytes # (Auto) 1.4 x10^3/uL (1.0-4.8) Monocytes # (Auto) 0.9 x10^3/uL (0.0-1.1) Eosinophils # (Auto) 0.0 x10^3/uL (0.0-0.7) Basophils # (Auto) 0.0 x10^3/uL (0.0-0.2) Sodium Level 127 mmol/L (136-145) Potassium Level 3.5 mmol/L (3.5-5.1) Chloride Level 94 mmol/L (98-107) Carbon Dioxide Level 21 mmol/L (21-32) Anion Gap 12 (6-14) Blood Urea Nitrogen 10 mg/dL (8-26) Creatinine 0.7 mg/dL (0.7-1.3) Estimated GFR (Cockcroft-Gault) 116.2 Glucose Level 117 mg/dL (70-99) Calcium Level 8.4 mg/dL (8.5-10.1) Medications Current Medications Sodium Chloride 1,000 ml @ 1,000 mls/hr 1X ONCE IV Last administered on at 12:33; Start 06/07/18 at 12:15; Stop 06/07/18 at 13:14; Status DC Ondansetron HCl (Zofran) 4 mg PRN Q8HRS PRN IV NAUSEA/VOMITING; Start 06/07/18 at 13:45; Stop 06/08/18 at 13:44; Status DC Morphine Sulfate (Morphine Sulfate) 4 mg PRN Q2HR PRN IV PAIN Last administered on 06/08/18at 06:47; Start 06/07/18 at 13:45; Stop 06/08/18 at 13:44 ; Status DC Potassium Chloride/Water 100 ml @ 100 mls/hr Q1H IV Last administered on at 19:51; Start 06/07/18 at 15:00; Stop 06/07/18 at 18:59; Status DC Multivitamins 10 ml/Thiamine HCl 100 mg/Folic Acid 1 mg/Sodium Chloride 1,011.2 ml @ 100 mls/ hr DAILY IV Last administered on 06/09/18at 09:06; Start at 16:00; Stop 06/11/18 at 19:07 Lorazepam (Ativan) 2 mg PRN Q1HR PRN IV For CIWA 8-14; Start 06/07/18 at 15:00 Lorazepam (Ativan) 4 mg PRN Q1HR PRN IV For CIWA 15 or greater; Start 06/07/18 at 15:00 Multivitamins 10 ml/Thiamine HCl 100 mg/Folic Acid 1 mg/Sodium Chloride 1,011.2 ml @ 100 mls/ hr DAILY IV ; Start 06/08/18 at 09:00; Stop 06/12/18 at 19:07; Status UNV Multivitamins (Thera M Plus) 1 tab DAILY PO ; Start 06/12/18 at 09:00 Folic Acid (Folic Acid) 1 mg DAILY PO ; Start 06/12/18 at 09:00 Lorazepam (Ativan) 4 mg PRN Q1HR PRN PO For CIWA 8-14; Start 06/07/18 at 17:30 Lorazepam (Ativan) 8 mg PRN Q1HR PRN PO For CIWA 15 or greater; Start 06/07/18 at 17:30 Lorazepam (Ativan) 4 mg PRN Q1HR PRN IV For CIWA 15 or greater; Start 06/07/18 at 17:30; Status UNV Haloperidol Lactate (Haldol Inj) 5 mg PRN Q4HRS PRN IVP Hallucinatns,Confusn, Delirium; Start 06/07/18 at 17:30 Diphenhydramine HCl (Benadryl) 25 mg PRN Q15MIN PRN IVP EPS symptoms 2'Haldol admin; Start 06/07/18 at 17:30 Clonidine HCl (Catapres) 0.1 mg PRN Q1HR PRN PO SBP > 180 or DBP > 100, MRX3; Start 06/07/18 at 17:30 Lorazepam (Ativan) 2 mg PRN Q15MIN PRN IV ; Start 06/07/18 at 17:30; Status UNV Lorazepam (Ativan) 4 mg PRN Q15MIN PRN IV ; Start 06/07/18 at 17:30; Status UNV Multivitamins 10 ml/Thiamine HCl 100 mg/Folic Acid 1 mg/Sodium Chloride 1,011.2 ml @ 100 mls/ hr DAILY IV ; Start 06/08/18 at 09:00; Stop 06/12/18 at 19:07; Status UNV Enalaprilat (Vasotec Inj) 1.25 mg PRN Q6HRS PRN IVP HYPERTENSION, SEE COMMENTS Last administered on 06/08/18at 20:14; Start 06/08/18 at 09:30 Acetaminophen (Tylenol) 650 mg PRN Q6HRS PRN PO FEVER; Start 06/08/18 at 09:45 Ondansetron HCl (Zofran) 4 mg PRN Q6HRS PRN IV NAUSEA/VOMITING; Start 06/08/18 at 09:45 Morphine Sulfate (Morphine Sulfate) 2 mg PRN Q2HR PRN IV MODERATE TO SEVERE PAIN Last administered on 06/09/18at 07:25; Start 06/08/18 at 09:45 Tramadol HCl (Ultram) 50 mg PRN Q6HRS PRN PO MILD TO MODERATE PAIN; Start 06/08 at 09:45 Docusate Sodium (Colace) 100 mg PRN DAILY PRN PO CONSTIPATION (1st Choice); Start 06/08/18 at 09:45 Amino Acids/ Glycerin/ Electrolytes 1,000 ml @ 80 mls/hr [id number] IV Last administered on 06/09/18at 02:21; Start 06/08/18 at 10:30; Stop 06/09/18 at 08:01 ; Status DC Sodium Chloride 1,000 ml @ 100 mls/hr Q10H IV Last administered on 06/09/18at 08:05; Start 06/09/18 at 08:00 Lisinopril (Prinivil) 20 mg DAILY PO Last administered on 06/09/18at 09:13; Start 06/09/18 at 09:00 Senna/Docusate Sodium (Senna Plus) 1 tab BID PO Last administered on 06/09/18at 09:13; Start 06/09/18 at 09:00 Docusate Sodium (Colace) 100 mg BID PO Last administered on 06/09/18at 09:13; Start 06/09/18 at 09:00 Magnesium Hydroxide (Milk Of Magnesia) 2,400 mg PRN Q12HR PRN PO CONSTIPATION; Start 06/09/18 at 08:15 Lactulose (Lactulose) 20 gm PRN Q12HR PRN PO CONSTIPATION; Start 06/09/18 at 08 :15 Influenza Virus Vaccine (Afluria Trivalent [id number] Syringe) 0.5 ml ONCE ONCE VAX IM Last administered on 06/09/18at 09:08; Start 06/09/18 at 10:00; Stop at 10:01; Status DC Multi-Ingredient Mouthwash/Gargle (Gi Cocktail) 20 ml PRN Q15MIN PRN PO CHEST PAIN Last administered on 06/09/18at 09:13; Start 06/09/18 at 09:15 Bisacodyl (Dulcolax Tab) 10 mg DAILY PO ; Start 06/09/18 at 12:00 Magnesium Hydroxide (Milk Of Magnesia) 2,400 mg PRN DAILY PRN PO CONSTIPATION ( 2nd Choice); Start 06/09/18 at 11:45 Magnesium Citrate (Citroma) 296 ml PRN 1X PRN PO CONSTIPATION; Start 06/09/18 at 11:45 Vitals/I & O Vital Sign - Last 24 Hours 06/08/18 06/08/18 06/08/18 06/08/18 16:00 16:14 20:00 20:14 Temp 98.9 98.9 Pulse 54 50 58 Resp 18 20 18 B/P (MAP) 139/87 (104) 148/76 (100) 191/84 Pulse Ox 96 94 98 O2 Delivery Room Air Room Air Room Air 06/08/18 06/09/18 06/09/18 06/09/18 20:48 00:00 03:48 04:00 Temp 98.8 98.6 98.8 98.6 Pulse 60 58 Resp 18 16 15 15 B/P (MAP) 151/68 (95) 140/91 (107) Pulse Ox 98 97 97 97 O2 Delivery Room Air Room Air Room Air Room Air 06/09/18 06/09/18 06/09/18 06/09/18 07:25 07:55 08:00 09:13 Temp 98.6 98.6 Pulse 55 55 Resp 18 18 16 B/P (MAP) 151/88 (109) 151/88 Pulse Ox 98 96 97 O2 Delivery Room Air Room Air Room Air Intake and Output 06/08/18 06/08/18 06/09/18 15:00 23:00 07:00 Intake Total 2203 ml Output Total 350 ml 800 ml Balance -350 ml -800 ml 2203 ml EVAN FORD MD Jun 09, 2018 12:17
[2018-06-09] MEDS: BISACODYL 5 MG TABLET.DR. PO SCH (12:52)
--- NOTE | 2018-06-09 13:25 | CONS ---
DATE OF CONSULTATION: 06/09/2018 ATTENDING PHYSICIAN: Dr. Rodrígeuz. The patient was seen at the request of Dr. Milan for rehab evaluation. 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 He apparently had a fall on 06/02/2018. Since then, he is somewhat lethargic, but got better, was seen by Dr. Thomas, his family physician with headache and was given an antibiotic and sent home. The patient even used a riding lawnmower to take care of his yard last week, but he has not been to work all of last week. The patient was admitted through the Emergency Room on 06/07/2018 as he continued to have some lethargy and some difficulty with communication. Since admission, he had CT scan of the brain and cervical spine, which revealed large acute left frontal parenchymal hemorrhage, contusion with adjacent prominent vasogenic edema, also adjacent subdural hematoma extending both laterally and also along the falx, also prominent left parasagittal subarachnoid hemorrhage. There is a separate small focus of parenchymal hemorrhagic contusion more laterally of left frontal lobe. CT scan of cervical spine revealed degenerative disk disease and spondylosis, greatest at C5-C6, also right greater than left C5-C6 neural foraminal compromise due to facet degenerative change. Repeat CT scan of the brain done on 06/08/2018 revealed stable left frontal lobe hemorrhage compatible with a cerebral contusion with associated edema as well as adjacent subdural and subarachnoid hemorrhage. The patient is being followed by physical therapy, occupational therapy and speech pathology. Chest x-ray failed to reveal any acute abnormality. Dr. Lozano and Dr. Milan following for neurosurgical and neurology. The patient uses chewing tobacco. He is a heavy alcohol user. He has some family history of alcohol abuse and depression with his parents. He lives with his and teenage children in [facility] home, had animals to take care. The patient had stairs to climb. PHYSICAL EXAMINATION: Today revealed a middle-aged male. He is somewhat lethargic, but can be awakened. He had significant communication difficulties. He moves all 4 extremities voluntarily where he seemed to have 4+/5 grade muscle strength. Deep tendon reflexes are brisk bilaterally with positive left ankle clonus. He seemed to have equal perception of touch and pinprick sensation bilaterally. He is independent with bed mobility and transfers. Once up, he can walk using a roller walker. His skin is intact at this time. No obvious visual field cut or facial asymmetry noted. Physical therapy and occupational therapy recommend inpatient rehab program. ASSESSMENT: A middle-aged male with recent fall and intracerebral subarachnoid and subdural hematoma, mainly left frontal area with some communication and cognitive deficits. He is also constipated for about a week. RECOMMENDATION: To ask speech pathology to see him for communication and cognitive problems, to screen for transfer to Inpatient Rehabilitation Unit and to arrange for transfer when he is medically stable. Dr. Milan, I appreciate asking me to participate in the care of this interesting patient. I will be glad to follow him with you as needed for the rehabilitation. JIMMY DAVIS MD DR: DERICK/cammie JOB#: [id number] / [id number]
--- NOTE | 2018-06-09 14:04 | PDOC ---
PROGRESS NOTES Assessment Assessment Large left frontal hematoma with surrounding edema. Contusion. ICH. Left parasagiital SDH. Headaches. Fall. Alcoholism. HTN. HLD. Degenerative C-spine disease. RECOMMENDATIONS/PLAN: BP control, no high than 150/85 mmHg. Avoid anticoagulant and antiplatelet agents this time. Treat medical diseases. Discussed with his again at bedside on 06/09/18. HISTORY OF THE PRESENT ILLNESS: This is a 58 -year-old male patient with history of heavy drinking of alcohol presented to the ER of [facility] complaining of 7 out of 10 frontal headache described as sharp and constant that has been going on since early Monday morning after he fell. Patient states he drank heavily on Monday night. He states he fell down but he doesn't remember how. Patient states he was seen by the PCP on Monday over his headache, he was started on azithromycin. He states his symptoms did not improve, he went to the urgent care clinic at the PCPs office, he was sent to the ED for evaluation. His HCT showed ICH described above. Past Medical History No Pertinent History PAST SURGERY HISTORY: No major surgery recently. Family History Alcohol Abuse, Depression ALLERGY: Unknown MEDICATIONS: Refer to [facility] SOCIAL HISTORY: Lives with his at home. Uses chewing tobacco Denies illicit drug use. He drinks alcohol heavily for many years. REVIEW OF SYSTEMS: Constitutional: No malnutrition, weight loss, cachexia. Head: Traumatic brain and head injury this time. Skin: No edema, or rash. Ear: No infection. Eyes: No vision loss or color blindness. Nose: No bleeding or purulent discharges. Hearing: No hearing decrease. Neck: No injury. Cardiac: No ID, arrhythmia. Pulmonary: No COPD. GI: No GI ulcer, GI bleeding. Urinary/genital: No dysuria, incontinence, urinary retention. Endocrinologic: No cousin face, craniofacial dysmorphism, polydactyly. Skeletomuscular: No muscular atrophy, deformity. Neurological: see HP. Psychiatric: Alcohol use/abuse. Otherwise, not [id number] review of systems. PHYSICAL EXAMINATION: General appearance is in subacute distress. HEENT: Normocephalic and nontraumatic. Eyes, nose, ears, and throat are unremarkable. Neck is supple. No lymphadenopathy. No bruits are heard over the carotid artery. No crepitus. Cardiovascular: S1, S2, regular rate and rhythm. Pulmonary: Clear to auscultation bilaterally. Abdomen: Bowel sounds are positive. Extremities: No rash, lesions, or edema. No restriction of range of motion NEUROLOGICAL EXAMINATION: Drowsiness. Not fully oriented to time, place but knew his family members. PERRL. EOMI. CN: no focal findings. Muscle tone: within normal. Muscle strength: 5- DTR: 2- Plantar reflex: Neutral response bilaterally Gait: not examined in bed. Sensory exam: no abnormal findings. Not able to access cerebellar signs. F-T-N test not performed due to not follow commands. Objective Objective Vital Signs Date Time Temp Pulse Resp B/P (MAP) Pulse Ox O2 Delivery O2 Flow Rate FiO2 06/09/18 13:22 16 Room Air 06/09/18 12:00 97.5 66 149/90 (109) 97 97.5 Intake and Output 06/09/18 07:00 Intake Total 2203 ml Output Total 1150 ml Balance 1053 ml IV Total 2203 ml Output Urine Total 1150 ml # Voids 3 Vitals Signs Vitals VS - Last 72 Hours, by Label Date Time Temp Pulse Resp B/P (MAP) Pulse Ox O2 Delivery O2 Flow Rate FiO2 06/09/18 13:22 16 Room Air 06/09/18 12:00 97.5 66 16 149/90 (109) 97 Room Air 97.5 06/09/18 09:13 55 151/88 06/09/18 08:00 98.6 55 16 151/88 (109) 97 Room Air 98.6 06/09/18 07:55 18 96 Room Air 06/09/18 07:25 18 98 Room Air 06/09/18 04:00 98.6 58 15 140/91 (107) 97 Room Air 98.6 06/09/18 03:48 15 97 Room Air 06/09/18 00:00 98.8 60 16 151/68 (95) 97 Room Air 98.8 06/08/18 20:48 18 98 Room Air 06/08/18 20:14 58 191/84 06/08/18 20:00 98.9 50 18 148/76 (100) 98 Room Air 98.9 06/08/18 16:14 20 94 Room Air 06/08/18 16:00 54 18 139/87 (104) 96 Room Air 06/08/18 12:00 97.6 48 15 117/62 (80) 96 Room Air 97.6 06/08/18 11:56 13 97 Room Air 06/08/18 11:00 54 14 148/89 (108) 98 Room Air 06/08/18 10:00 50 19 157/95 (115) 96 Room Air 06/08/18 09:00 64 16 148/87 (107) 97 Room Air 06/08/18 08:00 97.5 48 15 148/87 (107) 96 Room Air 97.5 06/08/18 07:00 50 11 151/93 (112) 95 Room Air Laboratory Laboratory Laboratory Tests Test 06/09/18 04:00 White Blood Count 11.5 x10^3/uL (4.0-11.0) Red Blood Count 4.42 x10^6/uL (4.30-5.70) Hemoglobin 14.2 g/dL (13.0-17.5) Hematocrit 39.7 % (39.0-53.0) Mean Corpuscular Volume 90 fL (79-100) Mean Corpuscular Hemoglobin 32 pg (25-35) Mean Corpuscular Hemoglobin Concent 36 g/dL (31-37) Red Cell Distribution Width 13.2 % (11.5-14.5) Platelet Count 237 x10^3/uL (140-400) Neutrophils (%) (Auto) 80 % (31-73) Lymphocytes (%) (Auto) 12 % (24-48) Monocytes (%) (Auto) 8 % (0-9) Eosinophils (%) (Auto) 0 % (0-3) Basophils (%) (Auto) 0 % (0-3) Neutrophils # (Auto) 9.2 x10^3uL (1.8-7.7) Lymphocytes # (Auto) 1.4 x10^3/uL (1.0-4.8) Monocytes # (Auto) 0.9 x10^3/uL (0.0-1.1) Eosinophils # (Auto) 0.0 x10^3/uL (0.0-0.7) Basophils # (Auto) 0.0 x10^3/uL (0.0-0.2) Sodium Level 127 mmol/L (136-145) Potassium Level 3.5 mmol/L (3.5-5.1) Chloride Level 94 mmol/L (98-107) Carbon Dioxide Level 21 mmol/L (21-32) Anion Gap 12 (6-14) Blood Urea Nitrogen 10 mg/dL (8-26) Creatinine 0.7 mg/dL (0.7-1.3) Estimated GFR (Cockcroft-Gault) 116.2 Glucose Level 117 mg/dL (70-99) Calcium Level 8.4 mg/dL (8.5-10.1) Medication Medications Current Medications Bisacodyl (Dulcolax Tab) 10 mg DAILY PO Last administered on 06/09/18at 12:52; Start 06/09/18 at 12:00 Docusate Sodium (Colace) 100 mg BID PO Last administered on 06/09/18at 09:13; Start 06/09/18 at 09:00 Folic Acid (Folic Acid) 1 mg DAILY PO ; Start 06/12/18 at 09:00 Influenza Virus Vaccine (Afluria Trivalent [id number] Syringe) 0.5 ml ONCE ONCE VAX IM Last administered on 06/09/18at 09:08; Start 06/09/18 at 10:00; Stop at 10:01; Status DC Lactulose (Lactulose) 20 gm PRN Q12HR PRN PO CONSTIPATION; Start 06/09/18 at 08 :15 Lisinopril (Prinivil) 20 mg DAILY PO Last administered on 06/09/18at 09:13; Start 06/09/18 at 09:00 Magnesium Hydroxide (Milk Of Magnesia) 2,400 mg PRN DAILY PRN PO CONSTIPATION ( 2nd Choice); Start 06/09/18 at 11:45 Magnesium Hydroxide (Milk Of Magnesia) 2,400 mg PRN Q12HR PRN PO CONSTIPATION Last administered on 06/09/18at 12:52; Start 06/09/18 at 08:15 Magnesium Citrate (Citroma) 296 ml PRN 1X PRN PO CONSTIPATION; Start 06/09/18 at 11:45 Multi-Ingredient Mouthwash/Gargle (Gi Cocktail) 20 ml PRN Q15MIN PRN PO CHEST PAIN Last administered on 06/09/18at 09:13; Start 06/09/18 at 09:15 Multivitamins (Thera M Plus) 1 tab DAILY PO ; Start 06/12/18 at 09:00 Senna/Docusate Sodium (Senna Plus) 1 tab BID PO Last administered on 06/09/18at 09:13; Start 06/09/18 at 09:00 Sodium Chloride 1,000 ml @ 100 mls/hr Q10H IV Last administered on 06/09/18at 08:05; Start 06/09/18 at 08:00 Comment Review of Relevant I have reviewed the following items ranjan (where applicable) has been applied. OBIE MURRY MD Jun 09, 2018 14:04
[2018-06-10 03:00] VITALS: BP 105/66
[2018-06-10 07:00] VITALS: BP 116/78
[2018-06-10 07:47] LABS: BASO # 0.1 x10^3/uL (0.0-0.2); BASO % 0 % (0-3); EOS % 0 % (0-3); HEMATOCRIT 41.6 % (39.0-53.0); LYMPH # 1.1 x10^3/uL (1.0-4.8); LYMPH % 6 % (24-48); MEAN CORPUSCULAR HEMOGLOBIN 33 pg (25-35); MEAN CORPUSCULAR HGB CONC 36 g/dL (31-37); MEAN CORPUSCULAR VOLUME 91 fL (79-100); MONO # 1.1 x10^3/uL (0.0-1.1); MONO % 5 % (0-9); NEUT # 17.5 x10^3uL (1.8-7.7); NEUT % 89 % (31-73); PLATELET COUNT 213 x10^3/uL (140-400); RED BLOOD COUNT 4.59 x10^6/uL (4.30-5.70); RED CELL DISTRIBUTION WIDTH 13.3 % (11.5-14.5); WHITE BLOOD COUNT 19.8 x10^3/uL (4.0-11.0)
[2018-06-10 07:53] LABS: CALCIUM 8.9 mg/dL (8.5-10.1); CREATININE 0.8 mg/dL (0.7-1.3); GFR 99.6; POTASSIUM 3.9 mmol/L (3.5-5.1)
[2018-06-10] MEDS: BISACODYL 5 MG TABLET.DR. PO SCH (08:39)
[2018-06-10] MEDS: IV NORMAL SALINE 1000ML BAG 1,000 ML IV SCH ×2 (08:39→20:07)
[2018-06-10] MEDS: DOCUSATE SODIUM 100 MG CAPSULE. PO SCH ×2 (08:40→21:00)
[2018-06-10] MEDS: SENNOSIDES/DOCUSATE 8.6/50MG TABLET. PO SCH ×2 (08:40→21:00)
[2018-06-10] MEDS: LISINOPRIL 20 MG TABLET PO SCH (08:40)
[2018-06-10 09:16] LABS: % BANDS 3 % (0-9); % LYMPHS 7 % (24-48); % MONOS 6 % (0-10); % SEGS 84 % (35-66); PLT ESTIMATE ADEQUATE (ADEQUATE)
[2018-06-10] MEDS: MULTIVIT INFUSN,ADULT 4,VIT K 10 ML, THIAMINE INJ 100 MG, FOLIC ACID INJ 1 MG in IV NOR... IV SCH (10:25)
[2018-06-10 11:00] VITALS: BP 110/69
[2018-06-10] MEDS ORDERED: LORazepam 0.5 MG TABLET PO PRN (11:45)
--- NOTE | 2018-06-10 14:14 | PDOC ---
PROGRESS NOTES Chief Complaint Chief Complaint left frontal hemorrhage with contusion, edema, from fall traumatic possible ETOH abuse AMS, with brain hemorrhage, with some confusion and memory issues constipation HTN hyponatremia plan: fu with neurosx, neuro no sx for now CT repeated today stable PTOT keep BP <150/90 with iv meds prn, dc lisinopril 20mg daily since BP lower side low po intake, dc PPN, add NS, cont banana bag daily dc ativan iv, add po low dose. talked to and daughter at bedside, pt has unsteady gait, will see if can dc home or rehab on Monday History of Present Illness History of Present Illness ROS: no fever, chills, sob or chest pain headache much better talks slow, walk slow, slightly better today not like normal low po intake Na 127 06/10: agitated yesterday, got ativan 2mg iv x1, then sedated now Vitals Vitals Vital Signs Date Time Temp Pulse Resp B/P (MAP) Pulse Ox O2 Delivery O2 Flow Rate FiO2 06/10/18 11:00 98.0 86 16 110/69 (83) 93 Room Air 98.0 06/10/18 08:00 2.0 Physical Exam Physical Exam talks very slow, not answer some questions, bl strength ok General: Alert Heart: Regular rate, Normal S1, Normal S2 Lungs: Clear Abdomen: Normal bowel sounds, Soft Extremities: No clubbing, No cyanosis Skin: No rashes Labs LABS Laboratory Tests Test 06/10/18 06:45 White Blood Count 19.8 x10^3/uL (4.0-11.0) Red Blood Count 4.59 x10^6/uL (4.30-5.70) Hemoglobin 15.0 g/dL (13.0-17.5) Hematocrit 41.6 % (39.0-53.0) Mean Corpuscular Volume 91 fL (79-100) Mean Corpuscular Hemoglobin 33 pg (25-35) Mean Corpuscular Hemoglobin Concent 36 g/dL (31-37) Red Cell Distribution Width 13.3 % (11.5-14.5) Platelet Count 213 x10^3/uL (140-400) Neutrophils (%) (Auto) 89 % (31-73) Lymphocytes (%) (Auto) 6 % (24-48) Monocytes (%) (Auto) 5 % (0-9) Eosinophils (%) (Auto) 0 % (0-3) Basophils (%) (Auto) 0 % (0-3) Neutrophils # (Auto) 17.5 x10^3uL (1.8-7.7) Lymphocytes # (Auto) 1.1 x10^3/uL (1.0-4.8) Monocytes # (Auto) 1.1 x10^3/uL (0.0-1.1) Eosinophils # (Auto) 0.0 x10^3/uL (0.0-0.7) Basophils # (Auto) 0.1 x10^3/uL (0.0-0.2) Segmented Neutrophils % 84 % (35-66) Band Neutrophils % 3 % (0-9) Lymphocytes % 7 % (24-48) Monocytes % 6 % (0-10) Platelet Estimate Adequate (ADEQUATE) Sodium Level 126 mmol/L (136-145) Potassium Level 3.9 mmol/L (3.5-5.1) Chloride Level 94 mmol/L (98-107) Carbon Dioxide Level 21 mmol/L (21-32) Anion Gap 11 (6-14) Blood Urea Nitrogen 11 mg/dL (8-26) Creatinine 0.8 mg/dL (0.7-1.3) Estimated GFR (Cockcroft-Gault) 99.6 Glucose Level 113 mg/dL (70-99) Calcium Level 8.9 mg/dL (8.5-10.1) Assessment and Plan Assessmemt and Plan Problems Medical Problems: (1) ETOH abuse Status: Acute (2) Fall Status: Acute Comment Review of Relevant I have reviewed the following items ranjan (where applicable) has been applied. Labs Laboratory Tests Test 06/09/18 04:00 06/10/18 06:45 White Blood Count 11.5 x10^3/uL (4.0-11.0) 19.8 x10^3/uL (4.0-11.0) Red Blood Count 4.42 x10^6/uL (4.30-5.70) 4.59 x10^6/uL (4.30-5.70) Hemoglobin 14.2 g/dL (13.0-17.5) 15.0 g/dL (13.0-17.5) Hematocrit 39.7 % (39.0-53.0) 41.6 % (39.0-53.0) Mean Corpuscular Volume 90 fL (79-100) 91 fL (79-100) Mean Corpuscular Hemoglobin 32 pg (25-35) 33 pg (25-35) Mean Corpuscular Hemoglobin Concent 36 g/dL (31-37) 36 g/dL (31-37) Red Cell Distribution Width 13.2 % (11.5-14.5) 13.3 % (11.5-14.5) Platelet Count 237 x10^3/uL (140-400) 213 x10^3/uL (140-400) Neutrophils (%) (Auto) 80 % (31-73) 89 % (31-73) Lymphocytes (%) (Auto) 12 % (24-48) 6 % (24-48) Monocytes (%) (Auto) 8 % (0-9) 5 % (0-9) Eosinophils (%) (Auto) 0 % (0-3) 0 % (0-3) Basophils (%) (Auto) 0 % (0-3) 0 % (0-3) Neutrophils # (Auto) 9.2 x10^3uL (1.8-7.7) 17.5 x10^3uL (1.8-7.7) Lymphocytes # (Auto) 1.4 x10^3/uL (1.0-4.8) 1.1 x10^3/uL (1.0-4.8) Monocytes # (Auto) 0.9 x10^3/uL (0.0-1.1) 1.1 x10^3/uL (0.0-1.1) Eosinophils # (Auto) 0.0 x10^3/uL (0.0-0.7) 0.0 x10^3/uL (0.0-0.7) Basophils # (Auto) 0.0 x10^3/uL (0.0-0.2) 0.1 x10^3/uL (0.0-0.2) Sodium Level 127 mmol/L (136-145) 126 mmol/L (136-145) Potassium Level 3.5 mmol/L (3.5-5.1) 3.9 mmol/L (3.5-5.1) Chloride Level 94 mmol/L (98-107) 94 mmol/L (98-107) Carbon Dioxide Level 21 mmol/L (21-32) 21 mmol/L (21-32) Anion Gap 12 (6-14) 11 (6-14) Blood Urea Nitrogen 10 mg/dL (8-26) 11 mg/dL (8-26) Creatinine 0.7 mg/dL (0.7-1.3) 0.8 mg/dL (0.7-1.3) Estimated GFR (Cockcroft-Gault) 116.2 99.6 Glucose Level 117 mg/dL (70-99) 113 mg/dL (70-99) Calcium Level 8.4 mg/dL (8.5-10.1) 8.9 mg/dL (8.5-10.1) Segmented Neutrophils % 84 % (35-66) Band Neutrophils % 3 % (0-9) Lymphocytes % 7 % (24-48) Monocytes % 6 % (0-10) Platelet Estimate Adequate (ADEQUATE) Laboratory Tests Test 06/10/18 06:45 White Blood Count 19.8 x10^3/uL (4.0-11.0) Red Blood Count 4.59 x10^6/uL (4.30-5.70) Hemoglobin 15.0 g/dL (13.0-17.5) Hematocrit 41.6 % (39.0-53.0) Mean Corpuscular Volume 91 fL (79-100) Mean Corpuscular Hemoglobin 33 pg (25-35) Mean Corpuscular Hemoglobin Concent 36 g/dL (31-37) Red Cell Distribution Width 13.3 % (11.5-14.5) Platelet Count 213 x10^3/uL (140-400) Neutrophils (%) (Auto) 89 % (31-73) Lymphocytes (%) (Auto) 6 % (24-48) Monocytes (%) (Auto) 5 % (0-9) Eosinophils (%) (Auto) 0 % (0-3) Basophils (%) (Auto) 0 % (0-3) Neutrophils # (Auto) 17.5 x10^3uL (1.8-7.7) Lymphocytes # (Auto) 1.1 x10^3/uL (1.0-4.8) Monocytes # (Auto) 1.1 x10^3/uL (0.0-1.1) Eosinophils # (Auto) 0.0 x10^3/uL (0.0-0.7) Basophils # (Auto) 0.1 x10^3/uL (0.0-0.2) Segmented Neutrophils % 84 % (35-66) Band Neutrophils % 3 % (0-9) Lymphocytes % 7 % (24-48) Monocytes % 6 % (0-10) Platelet Estimate Adequate (ADEQUATE) Sodium Level 126 mmol/L (136-145) Potassium Level 3.9 mmol/L (3.5-5.1) Chloride Level 94 mmol/L (98-107) Carbon Dioxide Level 21 mmol/L (21-32) Anion Gap 11 (6-14) Blood Urea Nitrogen 11 mg/dL (8-26) Creatinine 0.8 mg/dL (0.7-1.3) Estimated GFR (Cockcroft-Gault) 99.6 Glucose Level 113 mg/dL (70-99) Calcium Level 8.9 mg/dL (8.5-10.1) Medications Current Medications Sodium Chloride 1,000 ml @ 1,000 mls/hr 1X ONCE IV Last administered on at 12:33; Start 06/07/18 at 12:15; Stop 06/07/18 at 13:14; Status DC Ondansetron HCl (Zofran) 4 mg PRN Q8HRS PRN IV NAUSEA/VOMITING; Start 06/07/18 at 13:45; Stop 06/08/18 at 13:44; Status DC Morphine Sulfate (Morphine Sulfate) 4 mg PRN Q2HR PRN IV PAIN Last administered on 06/08/18at 06:47; Start 06/07/18 at 13:45; Stop 06/08/18 at 13:44 ; Status DC Potassium Chloride/Water 100 ml @ 100 mls/hr Q1H IV Last administered on at 19:51; Start 06/07/18 at 15:00; Stop 06/07/18 at 18:59; Status DC Multivitamins 10 ml/Thiamine HCl 100 mg/Folic Acid 1 mg/Sodium Chloride 1,011.2 ml @ 100 mls/ hr DAILY IV Last administered on 06/10/18at 10:25; Start at 16:00; Stop 06/11/18 at 19:07 Lorazepam (Ativan) 2 mg PRN Q1HR PRN IV For CIWA 8-14 Last administered on 06/09at 14:16; Start 06/07/18 at 15:00; Stop 06/10/18 at 11:44; Status DC Lorazepam (Ativan) 4 mg PRN Q1HR PRN IV For CIWA 15 or greater; Start 06/07/18 at 15:00; Stop 06/10/18 at 11:44; Status DC Multivitamins 10 ml/Thiamine HCl 100 mg/Folic Acid 1 mg/Sodium Chloride 1,011.2 ml @ 100 mls/ hr DAILY IV ; Start 06/08/18 at 09:00; Stop 06/12/18 at 19:07; Status UNV Multivitamins (Thera M Plus) 1 tab DAILY PO ; Start 06/12/18 at 09:00 Folic Acid (Folic Acid) 1 mg DAILY PO ; Start 06/12/18 at 09:00 Lorazepam (Ativan) 4 mg PRN Q1HR PRN PO For CIWA 8-14; Start 06/07/18 at 17:30 ; Stop 06/10/18 at 11:44; Status DC Lorazepam (Ativan) 8 mg PRN Q1HR PRN PO For CIWA 15 or greater; Start 06/07/18 at 17:30; Stop 06/10/18 at 11:44; Status DC Lorazepam (Ativan) 4 mg PRN Q1HR PRN IV For CIWA 15 or greater; Start 06/07/18 at 17:30; Status UNV Haloperidol Lactate (Haldol Inj) 5 mg PRN Q4HRS PRN IVP Hallucinatns,Confusn, Delirium; Start 06/07/18 at 17:30 Diphenhydramine HCl (Benadryl) 25 mg PRN Q15MIN PRN IVP EPS symptoms 2'Haldol admin; Start 06/07/18 at 17:30 Clonidine HCl (Catapres) 0.1 mg PRN Q1HR PRN PO SBP > 180 or DBP > 100, MRX3; Start 06/07/18 at 17:30 Lorazepam (Ativan) 2 mg PRN Q15MIN PRN IV ; Start 06/07/18 at 17:30; Status UNV Lorazepam (Ativan) 4 mg PRN Q15MIN PRN IV ; Start 06/07/18 at 17:30; Status UNV Multivitamins 10 ml/Thiamine HCl 100 mg/Folic Acid 1 mg/Sodium Chloride 1,011.2 ml @ 100 mls/ hr DAILY IV ; Start 06/08/18 at 09:00; Stop 06/12/18 at 19:07; Status UNV Enalaprilat (Vasotec Inj) 1.25 mg PRN Q6HRS PRN IVP HYPERTENSION, SEE COMMENTS Last administered on 06/08/18at 20:14; Start 06/08/18 at 09:30 Acetaminophen (Tylenol) 650 mg PRN Q6HRS PRN PO FEVER; Start 06/08/18 at 09:45 Ondansetron HCl (Zofran) 4 mg PRN Q6HRS PRN IV NAUSEA/VOMITING; Start 06/08/18 at 09:45 Morphine Sulfate (Morphine Sulfate) 2 mg PRN Q2HR PRN IV MODERATE TO SEVERE PAIN Last administered on 06/09/18at 20:23; Start 06/08/18 at 09:45 Tramadol HCl (Ultram) 50 mg PRN Q6HRS PRN PO MILD TO MODERATE PAIN; Start 06/08 at 09:45 Docusate Sodium (Colace) 100 mg PRN DAILY PRN PO CONSTIPATION (1st Choice); Start 06/08/18 at 09:45 Amino Acids/ Glycerin/ Electrolytes 1,000 ml @ 80 mls/hr [id number] IV Last administered on 06/09/18at 02:21; Start 06/08/18 at 10:30; Stop 06/09/18 at 08:01 ; Status DC Sodium Chloride 1,000 ml @ 100 mls/hr Q10H IV Last administered on 06/10/18at 08:39; Start 06/09/18 at 08:00 Lisinopril (Prinivil) 20 mg DAILY PO Last administered on 06/10/18at 08:40; Start 06/09/18 at 09:00; Stop 06/10/18 at 11:44; Status DC Senna/Docusate Sodium (Senna Plus) 1 tab BID PO Last administered on 06/10/18at 08:40; Start 06/09/18 at 09:00 Docusate Sodium (Colace) 100 mg BID PO Last administered on 06/10/18at 08:40; Start 06/09/18 at 09:00 Magnesium Hydroxide (Milk Of Magnesia) 2,400 mg PRN Q12HR PRN PO CONSTIPATION Last administered on 06/09/18at 12:52; Start 06/09/18 at 08:15 Lactulose (Lactulose) 20 gm PRN Q12HR PRN PO CONSTIPATION; Start 06/09/18 at 08 :15 Influenza Virus Vaccine (Afluria Trivalent [id number] Syringe) 0.5 ml ONCE ONCE VAX IM Last administered on 06/09/18at 09:08; Start 06/09/18 at 10:00; Stop at 10:01; Status DC Multi-Ingredient Mouthwash/Gargle (Gi Cocktail) 20 ml PRN Q15MIN PRN PO CHEST PAIN Last administered on 06/09/18at 15:58; Start 06/09/18 at 09:15 Bisacodyl (Dulcolax Tab) 10 mg DAILY PO Last administered on 06/10/18at 08:39; Start 06/09/18 at 12:00 Magnesium Hydroxide (Milk Of Magnesia) 2,400 mg PRN DAILY PRN PO CONSTIPATION ( 2nd Choice); Start 06/09/18 at 11:45 Magnesium Citrate (Citroma) 296 ml PRN 1X PRN PO CONSTIPATION; Start 06/09/18 at 11:45 Lorazepam (Ativan) 0.5 mg PRN Q8HRS PRN PO ANXIETY / AGITATION; Start 06/10/18 at 11:45 Vitals/I & O Vital Sign - Last 24 Hours 06/09/18 06/09/18 06/09/18 06/09/18 15:00 16:39 19:00 20:00 Temp 97.5 98.9 97.5 98.9 Pulse 61 74 Resp 16 16 18 B/P (MAP) 129/88 (102) 139/82 (101) Pulse Ox 94 91 O2 Delivery Room Air Room Air Nasal Cannula Nasal Cannula O2 Flow Rate 2.0 2.0 06/09/18 06/09/18 06/09/18 06/10/18 20:23 20:53 23:00 03:00 Temp 99.8 98.4 99.8 98.4 Pulse 65 67 Resp 18 18 18 B/P (MAP) 103/61 (75) 105/66 (79) Pulse Ox 94 94 94 91 O2 Delivery Room Air Nasal Cannula Nasal Cannula Nasal Cannula O2 Flow Rate 2.0 2.0 06/10/18 06/10/18 06/10/18 06/10/18 07:00 08:00 08:40 11:00 Temp 98.4 98.0 98.4 98.0 Pulse 77 67 86 Resp 16 16 B/P (MAP) 116/78 (91) 105/66 110/69 (83) Pulse Ox 97 93 O2 Delivery Room Air Room Air Room Air O2 Flow Rate 2.0 Intake and Output 06/09/18 06/09/18 06/10/18 15:00 23:00 07:00 Intake Total 1090 ml Balance 1090 ml EVAN FORD MD Jun 10, 2018 14:13
[2018-06-10] MEDS ORDERED: HALOPERIDOL LACTATE 5 MG/ML VIAL. IVP PRN (14:15)
--- NOTE | 2018-06-10 14:29 | PDOC ---
PROGRESS NOTES Assessment Assessment Large left frontal hematoma with surrounding edema. Metabolic encephalopathy. Contusion. ICH. Left parasagiital SDH. Headaches. Fall. Alcoholism. HTN. HLD. Degenerative C-spine disease. RECOMMENDATIONS/PLAN: BP control, no high than 150/85 mmHg. Avoid anticoagulant and antiplatelet agents this time. Treat medical diseases. Discussed with his again at bedside on 06/10/18. HISTORY OF THE PRESENT ILLNESS: This is a 58 -year-old male patient with history of heavy drinking of alcohol presented to the ER of [facility] complaining of 7 out of 10 frontal headache described as sharp and constant that has been going on since early Monday morning after he fell. Patient states he drank heavily on Monday night. He states he fell down but he doesn't remember how. Patient states he was seen by the PCP on Monday over his headache, he was started on azithromycin. He states his symptoms did not improve, he went to the urgent care clinic at the PCPs office, he was sent to the ED for evaluation. His HCT showed ICH described above. Past Medical History No Pertinent History PAST SURGERY HISTORY: No major surgery recently. Family History Alcohol Abuse, Depression ALLERGY: Unknown MEDICATIONS: Refer to [facility] SOCIAL HISTORY: Lives with his at home. Uses chewing tobacco Denies illicit drug use. He drinks alcohol heavily for many years. REVIEW OF SYSTEMS: Constitutional: No malnutrition, weight loss, cachexia. Head: Traumatic brain and head injury this time. Skin: No edema, or rash. Ear: No infection. Eyes: No vision loss or color blindness. Nose: No bleeding or purulent discharges. Hearing: No hearing decrease. Neck: No injury. Cardiac: No UT, arrhythmia. Pulmonary: No COPD. GI: No GI ulcer, GI bleeding. Urinary/genital: No dysuria, incontinence, urinary retention. Endocrinologic: No cousin face, craniofacial dysmorphism, polydactyly. Skeletomuscular: No muscular atrophy, deformity. Neurological: see HP. Psychiatric: Alcohol use/abuse. Otherwise, not [id number] review of systems. PHYSICAL EXAMINATION: General appearance is in subacute distress. HEENT: Normocephalic and nontraumatic. Eyes, nose, ears, and throat are unremarkable. Neck is supple. No lymphadenopathy. No bruits are heard over the carotid artery. No crepitus. Cardiovascular: S1, S2, regular rate and rhythm. Pulmonary: Clear to auscultation bilaterally. Abdomen: Bowel sounds are positive. Extremities: No rash, lesions, or edema. No restriction of range of motion NEUROLOGICAL EXAMINATION: Awake. Siting in bed eating. Not fully oriented to time, but knew place and person. PERRL. EOMI. CN: no focal findings. Muscle tone: within normal. Muscle strength: 5- DTR: 2- Plantar reflex: Neutral response bilaterally Gait: not examined in bed. Sensory exam: no abnormal findings. Not acute cerebellar signs elicited. F-T-N test fine. Objective Objective Vital Signs Date Time Temp Pulse Resp B/P (MAP) Pulse Ox O2 Delivery O2 Flow Rate FiO2 06/10/18 11:00 98.0 86 16 110/69 (83) 93 Room Air 98.0 06/10/18 08:00 2.0 Intake and Output 06/10/18 07:00 Intake Total 1090 ml Balance 1090 ml IV Total 1090 ml # Voids 5 Vitals Signs Vitals VS - Last 72 Hours, by Label Date Time Temp Pulse Resp B/P (MAP) Pulse Ox O2 Delivery O2 Flow Rate FiO2 06/10/18 11:00 98.0 86 16 110/69 (83) 93 Room Air 98.0 06/10/18 08:40 67 105/66 06/10/18 08:00 Room Air 2.0 06/10/18 07:00 98.4 77 16 116/78 (91) 97 Room Air 98.4 06/10/18 03:00 98.4 67 18 105/66 (79) 91 Nasal Cannula 2.0 98.4 06/09/18 23:00 99.8 65 18 103/61 (75) 94 Nasal Cannula 2.0 99.8 06/09/18 20:53 18 94 Nasal Cannula 06/09/18 20:23 94 Room Air 06/09/18 20:00 Nasal Cannula 2.0 06/09/18 19:00 98.9 74 18 139/82 (101) 91 Nasal Cannula 2.0 98.9 06/09/18 16:39 16 Room Air 06/09/18 15:00 97.5 61 16 129/88 (102) 94 Room Air 97.5 06/09/18 13:22 16 Room Air 06/09/18 12:00 97.5 66 16 149/90 (109) 97 Room Air 97.5 9/22/18 09:13 55 151/88 06/09/18 08:00 98.6 55 16 151/88 (109) 97 Room Air 98.6 06/09/18 07:25 18 98 Room Air Laboratory Laboratory Laboratory Tests Test 06/10/18 06:45 White Blood Count 19.8 x10^3/uL (4.0-11.0) Red Blood Count 4.59 x10^6/uL (4.30-5.70) Hemoglobin 15.0 g/dL (13.0-17.5) Hematocrit 41.6 % (39.0-53.0) Mean Corpuscular Volume 91 fL (79-100) Mean Corpuscular Hemoglobin 33 pg (25-35) Mean Corpuscular Hemoglobin Concent 36 g/dL (31-37) Red Cell Distribution Width 13.3 % (11.5-14.5) Platelet Count 213 x10^3/uL (140-400) Neutrophils (%) (Auto) 89 % (31-73) Lymphocytes (%) (Auto) 6 % (24-48) Monocytes (%) (Auto) 5 % (0-9) Eosinophils (%) (Auto) 0 % (0-3) Basophils (%) (Auto) 0 % (0-3) Neutrophils # (Auto) 17.5 x10^3uL (1.8-7.7) Lymphocytes # (Auto) 1.1 x10^3/uL (1.0-4.8) Monocytes # (Auto) 1.1 x10^3/uL (0.0-1.1) Eosinophils # (Auto) 0.0 x10^3/uL (0.0-0.7) Basophils # (Auto) 0.1 x10^3/uL (0.0-0.2) Segmented Neutrophils % 84 % (35-66) Band Neutrophils % 3 % (0-9) Lymphocytes % 7 % (24-48) Monocytes % 6 % (0-10) Platelet Estimate Adequate (ADEQUATE) Sodium Level 126 mmol/L (136-145) Potassium Level 3.9 mmol/L (3.5-5.1) Chloride Level 94 mmol/L (98-107) Carbon Dioxide Level 21 mmol/L (21-32) Anion Gap 11 (6-14) Blood Urea Nitrogen 11 mg/dL (8-26) Creatinine 0.8 mg/dL (0.7-1.3) Estimated GFR (Cockcroft-Gault) 99.6 Glucose Level 113 mg/dL (70-99) Calcium Level 8.9 mg/dL (8.5-10.1) Medication Medications Current Medications Folic Acid (Folic Acid) 1 mg DAILY PO ; Start 06/12/18 at 09:00 Haloperidol Lactate (Haldol Inj) 2 mg PRN Q4HRS PRN IVP Hallucinatns,Confusn, Delirium; Start 06/10/18 at 14:15 Lorazepam (Ativan) 0.5 mg PRN Q8HRS PRN PO ANXIETY / AGITATION; Start 06/10/18 at 11:45 Multivitamins (Thera M Plus) 1 tab DAILY PO ; Start 06/12/18 at 09:00 Comment Review of Relevant I have reviewed the following items ranjan (where applicable) has been applied. OBIE MURRY MD Jun 10, 2018 14:28
[2018-06-10 15:00] VITALS: BP 100/60
[2018-06-10 19:00] VITALS: BP 110/61
[2018-06-10] MEDS: traMADol 50 MG TABLET PO PRN (19:17)
[2018-06-10] MEDS: MORPHINE SULFATE 2 MG/ML VIAL. IV PRN (20:03)
[2018-06-10 22:53] VITALS: BP 125/81
[2018-06-11 03:00] VITALS: BP 118/74
[2018-06-11] MEDS: MORPHINE SULFATE 2 MG/ML VIAL. IV PRN (03:01)
[2018-06-11] MEDS: IV NORMAL SALINE 1000ML BAG 1,000 ML IV SCH ×3 (06:00→20:41)
[2018-06-11 07:00] VITALS: BP 133/81
[2018-06-11] MEDS: MULTIVIT INFUSN,ADULT 4,VIT K 10 ML, THIAMINE INJ 100 MG, FOLIC ACID INJ 1 MG in IV NOR... IV SCH (09:06)
[2018-06-11] MEDS: SENNOSIDES/DOCUSATE 8.6/50MG TABLET. PO SCH ×2 (09:06→20:41)
[2018-06-11] MEDS: BISACODYL 5 MG TABLET.DR. PO SCH (09:06)
[2018-06-11] MEDS: DOCUSATE SODIUM 100 MG CAPSULE. PO SCH ×2 (09:06→20:41)
[2018-06-11 09:10] LABS: BASO % 0 % (0-3); EOS % 0 % (0-3); HEMATOCRIT 38.3 % (39.0-53.0); HEMOGLOBIN 13.8 g/dL (13.0-17.5); LYMPH # 0.8 x10^3/uL (1.0-4.8); LYMPH % 9 % (24-48); MEAN CORPUSCULAR HEMOGLOBIN 33 pg (25-35); MEAN CORPUSCULAR HGB CONC 36 g/dL (31-37); MEAN CORPUSCULAR VOLUME 91 fL (79-100); MONO # 0.7 x10^3/uL (0.0-1.1); MONO % 8 % (0-9); NEUT # 7.6 x10^3uL (1.8-7.7); NEUT % 83 % (31-73); PLATELET COUNT 208 x10^3/uL (140-400); RED BLOOD COUNT 4.22 x10^6/uL (4.30-5.70); RED CELL DISTRIBUTION WIDTH 13.5 % (11.5-14.5); WHITE BLOOD COUNT 9.2 x10^3/uL (4.0-11.0)
[2018-06-11 09:24] LABS: CALCIUM 8.3 mg/dL (8.5-10.1); CREATININE 0.9 mg/dL (0.7-1.3); POTASSIUM 3.6 mmol/L (3.5-5.1)
--- NOTE | 2018-06-11 09:56 | PDOC ---
PROGRESS NOTES Subjective Subjective He admits some headache. Objective Objective Vital Signs Date Time Temp Pulse Resp B/P (MAP) Pulse Ox O2 Delivery O2 Flow Rate FiO2 06/11/18 07:00 98.2 64 16 133/81 (98) 95 Room Air 98.2 06/10/18 08:00 2.0 Intake and Output 06/11/18 07:00 Output Total 650 ml Balance -650 ml Output Urine Total 650 ml # Voids 8 # Bowel Movements 4 Physical Exam Physical Exam He is supine in bed and awake but continues with cognitive difficulties and communication difficulties. Assessment Assessment Problems Medical Problems: (1) ETOH abuse Status: Acute (2) Fall Status: Acute Plan Plan of Care To transfer him to rehab unit when medically stable. Comment Review of Relevant I have reviewed the following items ranjan (where applicable) has been applied. Labs Laboratory Tests Test 06/10/18 06:45 06/11/18 08:40 White Blood Count 19.8 x10^3/uL (4.0-11.0) 9.2 x10^3/uL (4.0-11.0) Red Blood Count 4.59 x10^6/uL (4.30-5.70) 4.22 x10^6/uL (4.30-5.70) Hemoglobin 15.0 g/dL (13.0-17.5) 13.8 g/dL (13.0-17.5) Hematocrit 41.6 % (39.0-53.0) 38.3 % (39.0-53.0) Mean Corpuscular Volume 91 fL (79-100) 91 fL (79-100) Mean Corpuscular Hemoglobin 33 pg (25-35) 33 pg (25-35) Mean Corpuscular Hemoglobin Concent 36 g/dL (31-37) 36 g/dL (31-37) Red Cell Distribution Width 13.3 % (11.5-14.5) 13.5 % (11.5-14.5) Platelet Count 213 x10^3/uL (140-400) 208 x10^3/uL (140-400) Neutrophils (%) (Auto) 89 % (31-73) 83 % (31-73) Lymphocytes (%) (Auto) 6 % (24-48) 9 % (24-48) Monocytes (%) (Auto) 5 % (0-9) 8 % (0-9) Eosinophils (%) (Auto) 0 % (0-3) 0 % (0-3) Basophils (%) (Auto) 0 % (0-3) 0 % (0-3) Neutrophils # (Auto) 17.5 x10^3uL (1.8-7.7) 7.6 x10^3uL (1.8-7.7) Lymphocytes # (Auto) 1.1 x10^3/uL (1.0-4.8) 0.8 x10^3/uL (1.0-4.8) Monocytes # (Auto) 1.1 x10^3/uL (0.0-1.1) 0.7 x10^3/uL (0.0-1.1) Eosinophils # (Auto) 0.0 x10^3/uL (0.0-0.7) 0.0 x10^3/uL (0.0-0.7) Basophils # (Auto) 0.1 x10^3/uL (0.0-0.2) 0.0 x10^3/uL (0.0-0.2) Segmented Neutrophils % 84 % (35-66) Band Neutrophils % 3 % (0-9) Lymphocytes % 7 % (24-48) Monocytes % 6 % (0-10) Platelet Estimate Adequate (ADEQUATE) Sodium Level 126 mmol/L (136-145) 135 mmol/L (136-145) Potassium Level 3.9 mmol/L (3.5-5.1) 3.6 mmol/L (3.5-5.1) Chloride Level 94 mmol/L (98-107) 101 mmol/L (98-107) Carbon Dioxide Level 21 mmol/L (21-32) 25 mmol/L (21-32) Anion Gap 11 (6-14) 9 (6-14) Blood Urea Nitrogen 11 mg/dL (8-26) 11 mg/dL (8-26) Creatinine 0.8 mg/dL (0.7-1.3) 0.9 mg/dL (0.7-1.3) Estimated GFR (Cockcroft-Gault) 99.6 87.0 Glucose Level 113 mg/dL (70-99) 134 mg/dL (70-99) Calcium Level 8.9 mg/dL (8.5-10.1) 8.3 mg/dL (8.5-10.1) Laboratory Tests Test 06/11/18 08:40 White Blood Count 9.2 x10^3/uL (4.0-11.0) Red Blood Count 4.22 x10^6/uL (4.30-5.70) Hemoglobin 13.8 g/dL (13.0-17.5) Hematocrit 38.3 % (39.0-53.0) Mean Corpuscular Volume 91 fL (79-100) Mean Corpuscular Hemoglobin 33 pg (25-35) Mean Corpuscular Hemoglobin Concent 36 g/dL (31-37) Red Cell Distribution Width 13.5 % (11.5-14.5) Platelet Count 208 x10^3/uL (140-400) Neutrophils (%) (Auto) 83 % (31-73) Lymphocytes (%) (Auto) 9 % (24-48) Monocytes (%) (Auto) 8 % (0-9) Eosinophils (%) (Auto) 0 % (0-3) Basophils (%) (Auto) 0 % (0-3) Neutrophils # (Auto) 7.6 x10^3uL (1.8-7.7) Lymphocytes # (Auto) 0.8 x10^3/uL (1.0-4.8) Monocytes # (Auto) 0.7 x10^3/uL (0.0-1.1) Eosinophils # (Auto) 0.0 x10^3/uL (0.0-0.7) Basophils # (Auto) 0.0 x10^3/uL (0.0-0.2) Sodium Level 135 mmol/L (136-145) Potassium Level 3.6 mmol/L (3.5-5.1) Chloride Level 101 mmol/L (98-107) Carbon Dioxide Level 25 mmol/L (21-32) Anion Gap 9 (6-14) Blood Urea Nitrogen 11 mg/dL (8-26) Creatinine 0.9 mg/dL (0.7-1.3) Estimated GFR (Cockcroft-Gault) 87.0 Glucose Level 134 mg/dL (70-99) Calcium Level 8.3 mg/dL (8.5-10.1) Medications Current Medications Sodium Chloride 1,000 ml @ 1,000 mls/hr 1X ONCE IV Last administered on at 12:33; Start 06/07/18 at 12:15; Stop 06/07/18 at 13:14; Status DC Ondansetron HCl (Zofran) 4 mg PRN Q8HRS PRN IV NAUSEA/VOMITING; Start 06/07/18 at 13:45; Stop 06/08/18 at 13:44; Status DC Morphine Sulfate (Morphine Sulfate) 4 mg PRN Q2HR PRN IV PAIN Last administered on 06/08/18at 06:47; Start 06/07/18 at 13:45; Stop 06/08/18 at 13:44 ; Status DC Potassium Chloride/Water 100 ml @ 100 mls/hr Q1H IV Last administered on at 19:51; Start 06/07/18 at 15:00; Stop 06/07/18 at 18:59; Status DC Multivitamins 10 ml/Thiamine HCl 100 mg/Folic Acid 1 mg/Sodium Chloride 1,011.2 ml @ 100 mls/ hr DAILY IV Last administered on 06/11/18at 09:06; Start at 16:00; Stop 06/11/18 at 19:07 Lorazepam (Ativan) 2 mg PRN Q1HR PRN IV For CIWA 8-14 Last administered on 06/09at 14:16; Start 06/07/18 at 15:00; Stop 06/10/18 at 11:44; Status DC Lorazepam (Ativan) 4 mg PRN Q1HR PRN IV For CIWA 15 or greater; Start 06/07/18 at 15:00; Stop 06/10/18 at 11:44; Status DC Multivitamins 10 ml/Thiamine HCl 100 mg/Folic Acid 1 mg/Sodium Chloride 1,011.2 ml @ 100 mls/ hr DAILY IV ; Start 06/08/18 at 09:00; Stop 06/12/18 at 19:07; Status UNV Multivitamins (Thera M Plus) 1 tab DAILY PO ; Start 06/12/18 at 09:00 Folic Acid (Folic Acid) 1 mg DAILY PO ; Start 06/12/18 at 09:00 Lorazepam (Ativan) 4 mg PRN Q1HR PRN PO For CIWA 8-14; Start 06/07/18 at 17:30 ; Stop 06/10/18 at 11:44; Status DC Lorazepam (Ativan) 8 mg PRN Q1HR PRN PO For CIWA 15 or greater; Start 06/07/18 at 17:30; Stop 06/10/18 at 11:44; Status DC Lorazepam (Ativan) 4 mg PRN Q1HR PRN IV For CIWA 15 or greater; Start 06/07/18 at 17:30; Status UNV Haloperidol Lactate (Haldol Inj) 5 mg PRN Q4HRS PRN IVP Hallucinatns,Confusn, Delirium; Start 06/07/18 at 17:30; Stop 06/10/18 at 14:13; Status DC Diphenhydramine HCl (Benadryl) 25 mg PRN Q15MIN PRN IVP EPS symptoms 2'Haldol admin; Start 06/07/18 at 17:30 Clonidine HCl (Catapres) 0.1 mg PRN Q1HR PRN PO SBP > 180 or DBP > 100, MRX3; Start 06/07/18 at 17:30 Lorazepam (Ativan) 2 mg PRN Q15MIN PRN IV ; Start 06/07/18 at 17:30; Status UNV Lorazepam (Ativan) 4 mg PRN Q15MIN PRN IV ; Start 06/07/18 at 17:30; Status UNV Multivitamins 10 ml/Thiamine HCl 100 mg/Folic Acid 1 mg/Sodium Chloride 1,011.2 ml @ 100 mls/ hr DAILY IV ; Start 06/08/18 at 09:00; Stop 06/12/18 at 19:07; Status UNV Enalaprilat (Vasotec Inj) 1.25 mg PRN Q6HRS PRN IVP HYPERTENSION, SEE COMMENTS Last administered on 06/08/18at 20:14; Start 06/08/18 at 09:30 Acetaminophen (Tylenol) 650 mg PRN Q6HRS PRN PO FEVER; Start 06/08/18 at 09:45 Ondansetron HCl (Zofran) 4 mg PRN Q6HRS PRN IV NAUSEA/VOMITING; Start 06/08/18 at 09:45 Morphine Sulfate (Morphine Sulfate) 2 mg PRN Q2HR PRN IV MODERATE TO SEVERE PAIN Last administered on 06/11/18 03:01; Start 06/08/18 at 09:45 Tramadol HCl (Ultram) 50 mg PRN Q6HRS PRN PO MILD TO MODERATE PAIN Last administered on 06/10/18 19:17; Start 06/08/18 at 09:45 Docusate Sodium (Colace) 100 mg PRN DAILY PRN PO CONSTIPATION (1st Choice); Start 06/08/18 at 09:45 Amino Acids/ Glycerin/ Electrolytes 1,000 ml @ 80 mls/hr [id number] IV Last administered on 06/09/18at 02:21; Start 06/08/18 at 10:30; Stop 06/09/18 at 08:01 ; Status DC Sodium Chloride 1,000 ml @ 100 mls/hr Q10H IV Last administered on 06/11/18at 06:00; Start 06/09/18 at 08:00 Lisinopril (Prinivil) 20 mg DAILY PO Last administered on 06/10/18at 08:40; Start 06/09/18 at 09:00; Stop 06/10/18 at 11:44; Status DC Senna/Docusate Sodium (Senna Plus) 1 tab BID PO Last administered on 06/11/18 09:06; Start 06/09/18 at 09:00 Docusate Sodium (Colace) 100 mg BID PO Last administered on 06/11/18 09:06; Start 06/09/18 at 09:00 Magnesium Hydroxide (Milk Of Magnesia) 2,400 mg PRN Q12HR PRN PO CONSTIPATION 3RD CHOICE Last administered on 06/09/18at 12:52; Start 06/09/18 at 08:15 Lactulose (Lactulose) 20 gm PRN Q12HR PRN PO CONSTIPATION 2ND CHOICE; Start at 08:15 Influenza Virus Vaccine (Afluria Trivalent [id number] Syringe) 0.5 ml ONCE ONCE VAX IM Last administered on 06/09/18 09:08; Start 06/09/18 at 10:00; Stop at 10:01; Status DC Multi-Ingredient Mouthwash/Gargle (Gi Cocktail) 20 ml PRN Q15MIN PRN PO CHEST PAIN Last administered on 06/09/18at 15:58; Start 06/09/18 at 09:15 Bisacodyl (Dulcolax Tab) 10 mg DAILY PO Last administered on 06/11/18at 09:06; Start 06/09/18 at 12:00 Magnesium Hydroxide (Milk Of Magnesia) 2,400 mg PRN DAILY PRN PO CONSTIPATION ( 2nd Choice); Start 06/09/18 at 11:45; Stop 06/10/18 at 19:37; Status DC Magnesium Citrate (Citroma) 296 ml PRN 1X PRN PO CONSTIPATION; Start 06/09/18 at 11:45 Lorazepam (Ativan) 0.5 mg PRN Q8HRS PRN PO ANXIETY / AGITATION; Start 06/10/18 at 11:45 Haloperidol Lactate (Haldol Inj) 2 mg PRN Q4HRS PRN IVP Hallucinatns,Confusn, Delirium; Start 06/10/18 at 14:15 Vitals/I & O Vital Sign - Last 24 Hours 06/10/18 06/10/18 06/10/18 06/10/18 11:00 15:00 19:00 19:17 Temp 98.0 98.0 98.8 98.0 98.0 98.8 Pulse 86 77 81 Resp 16 16 18 20 B/P (MAP) 110/69 (83) 100/60 (73) 110/61 (77) Pulse Ox 93 93 95 93 O2 Delivery Room Air Room Air Room Air Room Air 06/10/18 06/10/18 06/10/18 06/10/18 20:00 20:03 20:17 22:53 Temp 98.1 98.1 Pulse 70 Resp 18 18 18 B/P (MAP) 125/81 (96) Pulse Ox 93 96 96 O2 Delivery Room Air Room Air Room Air Room Air 06/11/18 06/11/18 06/11/18 06/11/18 03:00 03:01 03:31 07:00 Temp 97.7 98.2 97.7 98.2 Pulse 56 64 Resp 18 20 20 16 B/P (MAP) 118/74 (89) 133/81 (98) Pulse Ox 96 96 96 95 O2 Delivery Room Air Room Air Room Air Room Air Intake and Output 06/10/18 06/10/18 06/11/18 15:00 23:00 07:00 Output Total 650 ml Balance -650 ml JIMMY DAVIS MD Jun 11, 2018 09:56
--- NOTE | 2018-06-11 10:30 | RAD ---
CT scan of the head without contrast 06/11/2018 Clinical History: Follow-up intracranial hemorrhage. Technique: Unenhanced, contiguous, 5 mm axial sections were obtained through the head. One or more of the following individualized dose reduction techniques were utilized for this study: 1. Automated exposure control. 2. Adjustment of the mA and/or kV according to patient size. 3. Use of iterative reconstruction technique. Findings: Comparison study is dated 06/08/2018. The ventricles are within normal limits in size and configuration. A 3 cm parenchymal hematoma is seen involving the inferior left frontal lobe. This has not significantly changed in size since the previous examination. There is surrounding edema and mass effect which has improved slightly. An acute subdural hematoma is seen involving the interhemispheric fissure which measures 2.5 mm in thickness, posteriorly. This has decreased in size since the previous examination where it measured 4.4 mm in thickness. Small amount of acute subarachnoid hemorrhage is seen which has decreased since the previous study. No skull fracture is seen. IMPRESSION: There has been slight interval decrease in the edema surrounding the parenchymal hematoma within the left frontal lobe. Interval decrease in size of the subdural hematoma involving the interhemispheric fissure with decrease in the subarachnoid hemorrhage. Electronically signed by: Javid Smith MD (06/11/2018 10:26 AM) [id number]
[2018-06-11 11:00] VITALS: BP 112/71
--- NOTE | 2018-06-11 11:37 | PDOC ---
PROGRESS NOTES Chief Complaint Chief Complaint left frontal hemorrhage with contusion, edema, from fall traumatic possible ETOH abuse AMS, with brain hemorrhage, with some confusion and memory issues constipation HTN hyponatremia encephalopathy plan: F/U CT head- There has been slight interval decrease in the edema surrounding the parenchymal hematoma within the left frontal lobe. Interval decrease in size of the subdural hematoma involving the interhemispheric fissure with decrease in the subarachnoid hemorrhage okay to go to SNF fu with neurosx, neuro no sx for now CT repeated today stable PTOT keep BP <150/90 with iv meds prn, dc lisinopril 20mg daily since BP lower side low po intake, dc PPN, add NS, cont banana bag daily dc ativan iv, add po low dose. talked to and daughter at bedside, pt has unsteady gait, will see if can dc rehab AWAIT PLACEMENT History of Present Illness History of Present Illness ROS: no fever, chills, sob or chest pain headache much better talks slow, walk slow, slightly better today not like normal low po intake Na 127 06/10: agitated yesterday, got ativan 2mg iv x1, then sedated now Vitals Vitals Vital Signs Date Time Temp Pulse Resp B/P (MAP) Pulse Ox O2 Delivery O2 Flow Rate FiO2 06/11/18 11:00 98.8 66 18 112/71 (85) 99 Room Air 98.8 06/11/18 08:00 2.0 Physical Exam Physical Exam talks very slow, not answer some questions, bl strength ok General: Alert, Oriented X3, Cooperative, mild distress, Other (MENTATION SLOW , ENCEPHALOPATHIC) Heart: Regular rate, Normal S1, Normal S2 Lungs: Clear Abdomen: Normal bowel sounds, Soft Extremities: No clubbing, No cyanosis Skin: No rashes Labs LABS Laboratory Tests Test 06/11/18 08:40 White Blood Count 9.2 x10^3/uL (4.0-11.0) Red Blood Count 4.22 x10^6/uL (4.30-5.70) Hemoglobin 13.8 g/dL (13.0-17.5) Hematocrit 38.3 % (39.0-53.0) Mean Corpuscular Volume 91 fL (79-100) Mean Corpuscular Hemoglobin 33 pg (25-35) Mean Corpuscular Hemoglobin Concent 36 g/dL (31-37) Red Cell Distribution Width 13.5 % (11.5-14.5) Platelet Count 208 x10^3/uL (140-400) Neutrophils (%) (Auto) 83 % (31-73) Lymphocytes (%) (Auto) 9 % (24-48) Monocytes (%) (Auto) 8 % (0-9) Eosinophils (%) (Auto) 0 % (0-3) Basophils (%) (Auto) 0 % (0-3) Neutrophils # (Auto) 7.6 x10^3uL (1.8-7.7) Lymphocytes # (Auto) 0.8 x10^3/uL (1.0-4.8) Monocytes # (Auto) 0.7 x10^3/uL (0.0-1.1) Eosinophils # (Auto) 0.0 x10^3/uL (0.0-0.7) Basophils # (Auto) 0.0 x10^3/uL (0.0-0.2) Sodium Level 135 mmol/L (136-145) Potassium Level 3.6 mmol/L (3.5-5.1) Chloride Level 101 mmol/L (98-107) Carbon Dioxide Level 25 mmol/L (21-32) Anion Gap 9 (6-14) Blood Urea Nitrogen 11 mg/dL (8-26) Creatinine 0.9 mg/dL (0.7-1.3) Estimated GFR (Cockcroft-Gault) 87.0 Glucose Level 134 mg/dL (70-99) Calcium Level 8.3 mg/dL (8.5-10.1) Review of Systems Review of Systems * +1 of 3 verbal math problems Impressions * Pt presents w/ mod-severe cognitive communication impairment w/ deficits in orientation, problem solving, functional skills, memory, & auditory comprehension. Currently, deficits appear significant enough to affect pt's personal safety if left alone for any period of time. Possible component of anomia, as pt used a phonemic paraphasia on 1 occurence and is frequently slow to formulate verbal responses. Add'l assessment indicated. Baseline cognitive function unknown and pt has hx of signif. ETOH abuse which could likely result in decreased cognition baseline. RECOMMENDATIONS: Will continue REINSURANCE CLERK tx to address cognition and communication deficits. Anticipate add'l diagnostic tx to more fully assess areas of deficit. Pt would benefit from acute rehab post d/c from hospital. Identified Impairments Meriting Skilled Interventions * Cognitive-Linguistic Results communicated with: * pt & w/ XIN Cantu Skilled Services Needed * Aphasia Tx * Cognitive-Linguistic Tx * Pt-Caregiver Edu/Training Patient Stated Goal * not stated Digital Production Manager Goal * independent functional communication skills for living at home Communication/Cognition Goal #1 * pt will demo 75% accy w/ orientation w/ use of functional cues prn Communication/Cognition Goal #2 * pt will demo 85% accy w/ yes/no response to basic questions Pt. Agrees with POC * Decreased Mentation Rehab Potential - To Achieve Goals * Fair Treatment Frequency (Days/Week) * 3-5x/week x 1 week Discharge Recommendations * Acute Rehab facility Assessment and Plan Assessmemt and Plan Problems Medical Problems: (1) ETOH abuse Status: Acute (2) Fall Status: Acute Comment Review of Relevant I have reviewed the following items ranjan (where applicable) has been applied. Labs Laboratory Tests Test 06/10/18 06:45 06/11/18 08:40 White Blood Count 19.8 x10^3/uL (4.0-11.0) 9.2 x10^3/uL (4.0-11.0) Red Blood Count 4.59 x10^6/uL (4.30-5.70) 4.22 x10^6/uL (4.30-5.70) Hemoglobin 15.0 g/dL (13.0-17.5) 13.8 g/dL (13.0-17.5) Hematocrit 41.6 % (39.0-53.0) 38.3 % (39.0-53.0) Mean Corpuscular Volume 91 fL (79-100) 91 fL (79-100) Mean Corpuscular Hemoglobin 33 pg (25-35) 33 pg (25-35) Mean Corpuscular Hemoglobin Concent 36 g/dL (31-37) 36 g/dL (31-37) Red Cell Distribution Width 13.3 % (11.5-14.5) 13.5 % (11.5-14.5) Platelet Count 213 x10^3/uL (140-400) 208 x10^3/uL (140-400) Neutrophils (%) (Auto) 89 % (31-73) 83 % (31-73) Lymphocytes (%) (Auto) 6 % (24-48) 9 % (24-48) Monocytes (%) (Auto) 5 % (0-9) 8 % (0-9) Eosinophils (%) (Auto) 0 % (0-3) 0 % (0-3) Basophils (%) (Auto) 0 % (0-3) 0 % (0-3) Neutrophils # (Auto) 17.5 x10^3uL (1.8-7.7) 7.6 x10^3uL (1.8-7.7) Lymphocytes # (Auto) 1.1 x10^3/uL (1.0-4.8) 0.8 x10^3/uL (1.0-4.8) Monocytes # (Auto) 1.1 x10^3/uL (0.0-1.1) 0.7 x10^3/uL (0.0-1.1) Eosinophils # (Auto) 0.0 x10^3/uL (0.0-0.7) 0.0 x10^3/uL (0.0-0.7) Basophils # (Auto) 0.1 x10^3/uL (0.0-0.2) 0.0 x10^3/uL (0.0-0.2) Segmented Neutrophils % 84 % (35-66) Band Neutrophils % 3 % (0-9) Lymphocytes % 7 % (24-48) Monocytes % 6 % (0-10) Platelet Estimate Adequate (ADEQUATE) Sodium Level 126 mmol/L (136-145) 135 mmol/L (136-145) Potassium Level 3.9 mmol/L (3.5-5.1) 3.6 mmol/L (3.5-5.1) Chloride Level 94 mmol/L (98-107) 101 mmol/L (98-107) Carbon Dioxide Level 21 mmol/L (21-32) 25 mmol/L (21-32) Anion Gap 11 (6-14) 9 (6-14) Blood Urea Nitrogen 11 mg/dL (8-26) 11 mg/dL (8-26) Creatinine 0.8 mg/dL (0.7-1.3) 0.9 mg/dL (0.7-1.3) Estimated GFR (Cockcroft-Gault) 99.6 87.0 Glucose Level 113 mg/dL (70-99) 134 mg/dL (70-99) Calcium Level 8.9 mg/dL (8.5-10.1) 8.3 mg/dL (8.5-10.1) Laboratory Tests Test 06/11/18 08:40 White Blood Count 9.2 x10^3/uL (4.0-11.0) Red Blood Count 4.22 x10^6/uL (4.30-5.70) Hemoglobin 13.8 g/dL (13.0-17.5) Hematocrit 38.3 % (39.0-53.0) Mean Corpuscular Volume 91 fL (79-100) Mean Corpuscular Hemoglobin 33 pg (25-35) Mean Corpuscular Hemoglobin Concent 36 g/dL (31-37) Red Cell Distribution Width 13.5 % (11.5-14.5) Platelet Count 208 x10^3/uL (140-400) Neutrophils (%) (Auto) 83 % (31-73) Lymphocytes (%) (Auto) 9 % (24-48) Monocytes (%) (Auto) 8 % (0-9) Eosinophils (%) (Auto) 0 % (0-3) Basophils (%) (Auto) 0 % (0-3) Neutrophils # (Auto) 7.6 x10^3uL (1.8-7.7) Lymphocytes # (Auto) 0.8 x10^3/uL (1.0-4.8) Monocytes # (Auto) 0.7 x10^3/uL (0.0-1.1) Eosinophils # (Auto) 0.0 x10^3/uL (0.0-0.7) Basophils # (Auto) 0.0 x10^3/uL (0.0-0.2) Sodium Level 135 mmol/L (136-145) Potassium Level 3.6 mmol/L (3.5-5.1) Chloride Level 101 mmol/L (98-107) Carbon Dioxide Level 25 mmol/L (21-32) Anion Gap 9 (6-14) Blood Urea Nitrogen 11 mg/dL (8-26) Creatinine 0.9 mg/dL (0.7-1.3) Estimated GFR (Cockcroft-Gault) 87.0 Glucose Level 134 mg/dL (70-99) Calcium Level 8.3 mg/dL (8.5-10.1) Medications Current Medications Sodium Chloride 1,000 ml @ 1,000 mls/hr 1X ONCE IV Last administered on at 12:33; Start 06/07/18 at 12:15; Stop 06/07/18 at 13:14; Status DC Ondansetron HCl (Zofran) 4 mg PRN Q8HRS PRN IV NAUSEA/VOMITING; Start 06/07/18 at 13:45; Stop 06/08/18 at 13:44; Status DC Morphine Sulfate (Morphine Sulfate) 4 mg PRN Q2HR PRN IV PAIN Last administered on 06/08/18at 06:47; Start 06/07/18 at 13:45; Stop 06/08/18 at 13:44 ; Status DC Potassium Chloride/Water 100 ml @ 100 mls/hr Q1H IV Last administered on at 19:51; Start 06/07/18 at 15:00; Stop 06/07/18 at 18:59; Status DC Multivitamins 10 ml/Thiamine HCl 100 mg/Folic Acid 1 mg/Sodium Chloride 1,011.2 ml @ 100 mls/ hr DAILY IV Last administered on 06/11/18at 09:06; Start at 16:00; Stop 06/11/18 at 19:07 Lorazepam (Ativan) 2 mg PRN Q1HR PRN IV For CIWA 8-14 Last administered on 06/09at 14:16; Start 06/07/18 at 15:00; Stop 06/10/18 at 11:44; Status DC Lorazepam (Ativan) 4 mg PRN Q1HR PRN IV For CIWA 15 or greater; Start 06/07/18 at 15:00; Stop 06/10/18 at 11:44; Status DC Multivitamins 10 ml/Thiamine HCl 100 mg/Folic Acid 1 mg/Sodium Chloride 1,011.2 ml @ 100 mls/ hr DAILY IV ; Start 06/08/18 at 09:00; Stop 06/12/18 at 19:07; Status UNV Multivitamins (Thera M Plus) 1 tab DAILY PO ; Start 06/12/18 at 09:00 Folic Acid (Folic Acid) 1 mg DAILY PO ; Start 06/12/18 at 09:00 Lorazepam (Ativan) 4 mg PRN Q1HR PRN PO For CIWA 8-14; Start 06/07/18 at 17:30 ; Stop 06/10/18 at 11:44; Status DC Lorazepam (Ativan) 8 mg PRN Q1HR PRN PO For CIWA 15 or greater; Start 06/07/18 at 17:30; Stop 06/10/18 at 11:44; Status DC Lorazepam (Ativan) 4 mg PRN Q1HR PRN IV For CIWA 15 or greater; Start 06/07/18 at 17:30; Status UNV Haloperidol Lactate (Haldol Inj) 5 mg PRN Q4HRS PRN IVP Hallucinatns,Confusn, Delirium; Start 06/07/18 at 17:30; Stop 06/10/18 at 14:13; Status DC Diphenhydramine HCl (Benadryl) 25 mg PRN Q15MIN PRN IVP EPS symptoms 2'Haldol admin; Start 06/07/18 at 17:30 Clonidine HCl (Catapres) 0.1 mg PRN Q1HR PRN PO SBP > 180 or DBP > 100, MRX3; Start 06/07/18 at 17:30 Lorazepam (Ativan) 2 mg PRN Q15MIN PRN IV ; Start 06/07/18 at 17:30; Status UNV Lorazepam (Ativan) 4 mg PRN Q15MIN PRN IV ; Start 06/07/18 at 17:30; Status UNV Multivitamins 10 ml/Thiamine HCl 100 mg/Folic Acid 1 mg/Sodium Chloride 1,011.2 ml @ 100 mls/ hr DAILY IV ; Start 06/08/18 at 09:00; Stop 06/12/18 at 19:07; Status UNV Enalaprilat (Vasotec Inj) 1.25 mg PRN Q6HRS PRN IVP HYPERTENSION, SEE COMMENTS Last administered on 06/08/18at 20:14; Start 06/08/18 at 09:30 Acetaminophen (Tylenol) 650 mg PRN Q6HRS PRN PO FEVER; Start 06/08/18 at 09:45 Ondansetron HCl (Zofran) 4 mg PRN Q6HRS PRN IV NAUSEA/VOMITING; Start 06/08/18 at 09:45 Morphine Sulfate (Morphine Sulfate) 2 mg PRN Q2HR PRN IV MODERATE TO SEVERE PAIN Last administered on 06/11/18at 03:01; Start 06/08/18 at 09:45 Tramadol HCl (Ultram) 50 mg PRN Q6HRS PRN PO MILD TO MODERATE PAIN Last administered on 06/10/18at 19:17; Start 06/08/18 at 09:45 Docusate Sodium (Colace) 100 mg PRN DAILY PRN PO CONSTIPATION (1st Choice); Start 06/08/18 at 09:45 Amino Acids/ Glycerin/ Electrolytes 1,000 ml @ 80 mls/hr [id number] IV Last administered on 06/09/18at 02:21; Start 06/08/18 at 10:30; Stop 06/09/18 at 08:01 ; Status DC Sodium Chloride 1,000 ml @ 100 mls/hr Q10H IV Last administered on 06/11/18at 06:00; Start 06/09/18 at 08:00 Lisinopril (Prinivil) 20 mg DAILY PO Last administered on 06/10/18at 08:40; Start 06/09/18 at 09:00; Stop 06/10/18 at 11:44; Status DC Senna/Docusate Sodium (Senna Plus) 1 tab BID PO Last administered on 06/11/18 09:06; Start 06/09/18 at 09:00 Docusate Sodium (Colace) 100 mg BID PO Last administered on 06/11/18at 09:06; Start 06/09/18 at 09:00 Magnesium Hydroxide (Milk Of Magnesia) 2,400 mg PRN Q12HR PRN PO CONSTIPATION 3RD CHOICE Last administered on 06/09/18at 12:52; Start 06/09/18 at 08:15 Lactulose (Lactulose) 20 gm PRN Q12HR PRN PO CONSTIPATION 2ND CHOICE; Start at 08:15 Influenza Virus Vaccine (Afluria Trivalent [id number] Syringe) 0.5 ml ONCE ONCE VAX IM Last administered on 06/09/18at 09:08; Start 06/09/18 at 10:00; Stop at 10:01; Status DC Multi-Ingredient Mouthwash/Gargle (Gi Cocktail) 20 ml PRN Q15MIN PRN PO CHEST PAIN Last administered on 06/09/18at 15:58; Start 06/09/18 at 09:15 Bisacodyl (Dulcolax Tab) 10 mg DAILY PO Last administered on 06/11/18at 09:06; Start 06/09/18 at 12:00 Magnesium Hydroxide (Milk Of Magnesia) 2,400 mg PRN DAILY PRN PO CONSTIPATION ( 2nd Choice); Start 06/09/18 at 11:45; Stop 06/10/18 at 19:37; Status DC Magnesium Citrate (Citroma) 296 ml PRN 1X PRN PO CONSTIPATION; Start 06/09/18 at 11:45 Lorazepam (Ativan) 0.5 mg PRN Q8HRS PRN PO ANXIETY / AGITATION; Start 06/10/18 at 11:45 Haloperidol Lactate (Haldol Inj) 2 mg PRN Q4HRS PRN IVP Hallucinatns,Confusn, Delirium; Start 06/10/18 at 14:15 Vitals/I & O Vital Sign - Last 24 Hours 06/10/18 06/10/18 06/10/18 06/10/18 15:00 19:00 19:17 20:00 Temp 98.0 98.8 98.0 98.8 Pulse 77 81 Resp 16 18 20 B/P (MAP) 100/60 (73) 110/61 (77) Pulse Ox 93 95 93 O2 Delivery Room Air Room Air Room Air Room Air 06/10/18 06/10/18 06/10/18 06/11/18 20:03 20:17 22:53 03:00 Temp 98.1 97.7 98.1 97.7 Pulse 70 56 Resp 18 18 18 18 B/P (MAP) 125/81 (96) 118/74 (89) Pulse Ox 93 96 96 96 O2 Delivery Room Air Room Air Room Air Room Air 06/11/18 06/11/18 06/11/18 06/11/18 03:01 03:31 07:00 08:00 Temp 98.2 98.2 Pulse 64 Resp 20 20 16 B/P (MAP) 133/81 (98) Pulse Ox 96 96 95 O2 Delivery Room Air Room Air Room Air Room Air O2 Flow Rate 2.0 06/11/18 11:00 Temp 98.8 98.8 Pulse 66 Resp 18 B/P (MAP) 112/71 (85) Pulse Ox 99 O2 Delivery Room Air Intake and Output 06/10/18 06/10/18 06/11/18 15:00 23:00 07:00 Output Total 650 ml Balance -650 ml CARISSA MOORE MD Jun 11, 2018 11:37
--- NOTE | 2018-06-11 11:58 | PDOC ---
PROGRESS NOTES Assessment Problems Medical Problems: (1) ETOH abuse Status: Acute (2) Fall Status: Acute Large left frontal hematoma with surrounding edema. Metabolic encephalopathy. Contusion. ICH. Left parasagiital SDH. Headaches. Fall. Alcoholism. HTN. HLD. Degenerative C-spine disease. Plan BP control, keep less than 150/85 mmHg. Avoid anticoagulant and antiplatelet agents this time. Treat medical diseases. Okay to go to long term unit Subjective No complaints, denies pain Objective Vital Signs Date Time Temp Pulse Resp B/P (MAP) Pulse Ox O2 Delivery O2 Flow Rate FiO2 06/11/18 11:00 98.8 66 18 112/71 (85) 99 Room Air 98.8 06/11/18 08:00 2.0 Intake and Output 06/11/18 07:00 Output Total 650 ml Balance -650 ml Output Urine Total 650 ml # Voids 8 # Bowel Movements 4 PHYSICAL EXAM Alert. Oriented to place and person, not date. PERRL. EOMI. CN: no focal findings. Muscle tone: normal. Muscle strength: 4/5 on right, 5-/5 on left DTR: 2+ Plantar reflex: flexor Gait: not examined in bed. Sensory exam: no abnormal findings. No cerebellar signs elicited. Review of Relevant I have reviewed the following items ranjan (where applicable) has been applied. Labs Laboratory Tests Test 06/10/18 06:45 06/11/18 08:40 White Blood Count 19.8 x10^3/uL (4.0-11.0) 9.2 x10^3/uL (4.0-11.0) Red Blood Count 4.59 x10^6/uL (4.30-5.70) 4.22 x10^6/uL (4.30-5.70) Hemoglobin 15.0 g/dL (13.0-17.5) 13.8 g/dL (13.0-17.5) Hematocrit 41.6 % (39.0-53.0) 38.3 % (39.0-53.0) Mean Corpuscular Volume 91 fL (79-100) 91 fL (79-100) Mean Corpuscular Hemoglobin 33 pg (25-35) 33 pg (25-35) Mean Corpuscular Hemoglobin Concent 36 g/dL (31-37) 36 g/dL (31-37) Red Cell Distribution Width 13.3 % (11.5-14.5) 13.5 % (11.5-14.5) Platelet Count 213 x10^3/uL (140-400) 208 x10^3/uL (140-400) Neutrophils (%) (Auto) 89 % (31-73) 83 % (31-73) Lymphocytes (%) (Auto) 6 % (24-48) 9 % (24-48) Monocytes (%) (Auto) 5 % (0-9) 8 % (0-9) Eosinophils (%) (Auto) 0 % (0-3) 0 % (0-3) Basophils (%) (Auto) 0 % (0-3) 0 % (0-3) Neutrophils # (Auto) 17.5 x10^3uL (1.8-7.7) 7.6 x10^3uL (1.8-7.7) Lymphocytes # (Auto) 1.1 x10^3/uL (1.0-4.8) 0.8 x10^3/uL (1.0-4.8) Monocytes # (Auto) 1.1 x10^3/uL (0.0-1.1) 0.7 x10^3/uL (0.0-1.1) Eosinophils # (Auto) 0.0 x10^3/uL (0.0-0.7) 0.0 x10^3/uL (0.0-0.7) Basophils # (Auto) 0.1 x10^3/uL (0.0-0.2) 0.0 x10^3/uL (0.0-0.2) Segmented Neutrophils % 84 % (35-66) Band Neutrophils % 3 % (0-9) Lymphocytes % 7 % (24-48) Monocytes % 6 % (0-10) Platelet Estimate Adequate (ADEQUATE) Sodium Level 126 mmol/L (136-145) 135 mmol/L (136-145) Potassium Level 3.9 mmol/L (3.5-5.1) 3.6 mmol/L (3.5-5.1) Chloride Level 94 mmol/L (98-107) 101 mmol/L (98-107) Carbon Dioxide Level 21 mmol/L (21-32) 25 mmol/L (21-32) Anion Gap 11 (6-14) 9 (6-14) Blood Urea Nitrogen 11 mg/dL (8-26) 11 mg/dL (8-26) Creatinine 0.8 mg/dL (0.7-1.3) 0.9 mg/dL (0.7-1.3) Estimated GFR (Cockcroft-Gault) 99.6 87.0 Glucose Level 113 mg/dL (70-99) 134 mg/dL (70-99) Calcium Level 8.9 mg/dL (8.5-10.1) 8.3 mg/dL (8.5-10.1) Laboratory Tests Test 06/11/18 08:40 White Blood Count 9.2 x10^3/uL (4.0-11.0) Red Blood Count 4.22 x10^6/uL (4.30-5.70) Hemoglobin 13.8 g/dL (13.0-17.5) Hematocrit 38.3 % (39.0-53.0) Mean Corpuscular Volume 91 fL (79-100) Mean Corpuscular Hemoglobin 33 pg (25-35) Mean Corpuscular Hemoglobin Concent 36 g/dL (31-37) Red Cell Distribution Width 13.5 % (11.5-14.5) Platelet Count 208 x10^3/uL (140-400) Neutrophils (%) (Auto) 83 % (31-73) Lymphocytes (%) (Auto) 9 % (24-48) Monocytes (%) (Auto) 8 % (0-9) Eosinophils (%) (Auto) 0 % (0-3) Basophils (%) (Auto) 0 % (0-3) Neutrophils # (Auto) 7.6 x10^3uL (1.8-7.7) Lymphocytes # (Auto) 0.8 x10^3/uL (1.0-4.8) Monocytes # (Auto) 0.7 x10^3/uL (0.0-1.1) Eosinophils # (Auto) 0.0 x10^3/uL (0.0-0.7) Basophils # (Auto) 0.0 x10^3/uL (0.0-0.2) Sodium Level 135 mmol/L (136-145) Potassium Level 3.6 mmol/L (3.5-5.1) Chloride Level 101 mmol/L (98-107) Carbon Dioxide Level 25 mmol/L (21-32) Anion Gap 9 (6-14) Blood Urea Nitrogen 11 mg/dL (8-26) Creatinine 0.9 mg/dL (0.7-1.3) Estimated GFR (Cockcroft-Gault) 87.0 Glucose Level 134 mg/dL (70-99) Calcium Level 8.3 mg/dL (8.5-10.1) Medications Current Medications Sodium Chloride 1,000 ml @ 1,000 mls/hr 1X ONCE IV Last administered on at 12:33; Start 06/07/18 at 12:15; Stop 06/07/18 at 13:14; Status DC Ondansetron HCl (Zofran) 4 mg PRN Q8HRS PRN IV NAUSEA/VOMITING; Start 06/07/18 at 13:45; Stop 06/08/18 at 13:44; Status DC Morphine Sulfate (Morphine Sulfate) 4 mg PRN Q2HR PRN IV PAIN Last administered on 06/08/18at 06:47; Start 06/07/18 at 13:45; Stop 06/08/18 at 13:44 ; Status DC Potassium Chloride/Water 100 ml @ 100 mls/hr Q1H IV Last administered on at 19:51; Start 06/07/18 at 15:00; Stop 06/07/18 at 18:59; Status DC Multivitamins 10 ml/Thiamine HCl 100 mg/Folic Acid 1 mg/Sodium Chloride 1,011.2 ml @ 100 mls/ hr DAILY IV Last administered on 06/11/18at 09:06; Start at 16:00; Stop 06/11/18 at 19:07 Lorazepam (Ativan) 2 mg PRN Q1HR PRN IV For CIWA 8-14 Last administered on 06/09at 14:16; Start 06/07/18 at 15:00; Stop 06/10/18 at 11:44; Status DC Lorazepam (Ativan) 4 mg PRN Q1HR PRN IV For CIWA 15 or greater; Start 06/07/18 at 15:00; Stop 06/10/18 at 11:44; Status DC Multivitamins 10 ml/Thiamine HCl 100 mg/Folic Acid 1 mg/Sodium Chloride 1,011.2 ml @ 100 mls/ hr DAILY IV ; Start 06/08/18 at 09:00; Stop 06/12/18 at 19:07; Status UNV Multivitamins (Thera M Plus) 1 tab DAILY PO ; Start 06/12/18 at 09:00 Folic Acid (Folic Acid) 1 mg DAILY PO ; Start 06/12/18 at 09:00 Lorazepam (Ativan) 4 mg PRN Q1HR PRN PO For CIWA 8-14; Start 06/07/18 at 17:30 ; Stop 06/10/18 at 11:44; Status DC Lorazepam (Ativan) 8 mg PRN Q1HR PRN PO For CIWA 15 or greater; Start 06/07/18 at 17:30; Stop 06/10/18 at 11:44; Status DC Lorazepam (Ativan) 4 mg PRN Q1HR PRN IV For CIWA 15 or greater; Start 06/07/18 at 17:30; Status UNV Haloperidol Lactate (Haldol Inj) 5 mg PRN Q4HRS PRN IVP Hallucinatns,Confusn, Delirium; Start 06/07/18 at 17:30; Stop 06/10/18 at 14:13; Status DC Diphenhydramine HCl (Benadryl) 25 mg PRN Q15MIN PRN IVP EPS symptoms 2'Haldol admin; Start 06/07/18 at 17:30 Clonidine HCl (Catapres) 0.1 mg PRN Q1HR PRN PO SBP > 180 or DBP > 100, MRX3; Start 06/07/18 at 17:30 Lorazepam (Ativan) 2 mg PRN Q15MIN PRN IV ; Start 06/07/18 at 17:30; Status UNV Lorazepam (Ativan) 4 mg PRN Q15MIN PRN IV ; Start 06/07/18 at 17:30; Status UNV Multivitamins 10 ml/Thiamine HCl 100 mg/Folic Acid 1 mg/Sodium Chloride 1,011.2 ml @ 100 mls/ hr DAILY IV ; Start 06/08/18 at 09:00; Stop 06/12/18 at 19:07; Status UNV Enalaprilat (Vasotec Inj) 1.25 mg PRN Q6HRS PRN IVP HYPERTENSION, SEE COMMENTS Last administered on 06/08/18at 20:14; Start 06/08/18 at 09:30 Acetaminophen (Tylenol) 650 mg PRN Q6HRS PRN PO FEVER; Start 06/08/18 at 09:45 Ondansetron HCl (Zofran) 4 mg PRN Q6HRS PRN IV NAUSEA/VOMITING; Start 06/08/18 at 09:45 Morphine Sulfate (Morphine Sulfate) 2 mg PRN Q2HR PRN IV MODERATE TO SEVERE PAIN Last administered on 06/11/18at 03:01; Start 06/08/18 at 09:45 Tramadol HCl (Ultram) 50 mg PRN Q6HRS PRN PO MILD TO MODERATE PAIN Last administered on 06/10/18at 19:17; Start 06/08/18 at 09:45 Docusate Sodium (Colace) 100 mg PRN DAILY PRN PO CONSTIPATION (1st Choice); Start 06/08/18 at 09:45 Amino Acids/ Glycerin/ Electrolytes 1,000 ml @ 80 mls/hr [id number] IV Last administered on 06/09/18at 02:21; Start 06/08/18 at 10:30; Stop 06/09/18 at 08:01 ; Status DC Sodium Chloride 1,000 ml @ 100 mls/hr Q10H IV Last administered on 06/11/18at 06:00; Start 06/09/18 at 08:00 Lisinopril (Prinivil) 20 mg DAILY PO Last administered on 06/10/18at 08:40; Start 06/09/18 at 09:00; Stop 06/10/18 at 11:44; Status DC Senna/Docusate Sodium (Senna Plus) 1 tab BID PO Last administered on 06/11/18 09:06; Start 06/09/18 at 09:00 Docusate Sodium (Colace) 100 mg BID PO Last administered on 06/11/18at 09:06; Start 06/09/18 at 09:00 Magnesium Hydroxide (Milk Of Magnesia) 2,400 mg PRN Q12HR PRN PO CONSTIPATION 3RD CHOICE Last administered on 06/09/18at 12:52; Start 06/09/18 at 08:15 Lactulose (Lactulose) 20 gm PRN Q12HR PRN PO CONSTIPATION 2ND CHOICE; Start at 08:15 Influenza Virus Vaccine (Afluria Trivalent [id number] Syringe) 0.5 ml ONCE ONCE VAX IM Last administered on 06/09/18at 09:08; Start 06/09/18 at 10:00; Stop at 10:01; Status DC Multi-Ingredient Mouthwash/Gargle (Gi Cocktail) 20 ml PRN Q15MIN PRN PO CHEST PAIN Last administered on 06/09/18at 15:58; Start 06/09/18 at 09:15 Bisacodyl (Dulcolax Tab) 10 mg DAILY PO Last administered on 06/11/18at 09:06; Start 06/09/18 at 12:00 Magnesium Hydroxide (Milk Of Magnesia) 2,400 mg PRN DAILY PRN PO CONSTIPATION ( 2nd Choice); Start 06/09/18 at 11:45; Stop 06/10/18 at 19:37; Status DC Magnesium Citrate (Citroma) 296 ml PRN 1X PRN PO CONSTIPATION; Start 06/09/18 at 11:45 Lorazepam (Ativan) 0.5 mg PRN Q8HRS PRN PO ANXIETY / AGITATION; Start 06/10/18 at 11:45 Haloperidol Lactate (Haldol Inj) 2 mg PRN Q4HRS PRN IVP Hallucinatns,Confusn, Delirium; Start 06/10/18 at 14:15 Vitals/I & O Vital Sign - Last 24 Hours 06/10/18 06/10/18 06/10/18 06/10/18 15:00 19:00 19:17 20:00 Temp 98.0 98.8 98.0 98.8 Pulse 77 81 Resp 16 18 20 B/P (MAP) 100/60 (73) 110/61 (77) Pulse Ox 93 95 93 O2 Delivery Room Air Room Air Room Air Room Air 06/10/18 06/10/18 06/10/18 06/11/18 20:03 20:17 22:53 03:00 Temp 98.1 97.7 98.1 97.7 Pulse 70 56 Resp 18 18 18 18 B/P (MAP) 125/81 (96) 118/74 (89) Pulse Ox 93 96 96 96 O2 Delivery Room Air Room Air Room Air Room Air 06/11/18 06/11/18 06/11/1824/18 03:01 03:31 07:00 08:00 Temp 98.2 98.2 Pulse 64 Resp 20 20 16 B/P (MAP) 133/81 (98) Pulse Ox 96 96 95 O2 Delivery Room Air Room Air Room Air Room Air O2 Flow Rate 2.0 06/11/18 11:00 Temp 98.8 98.8 Pulse 66 Resp 18 B/P (MAP) 112/71 (85) Pulse Ox 99 O2 Delivery Room Air Intake and Output 06/10/18 06/10/18 06/11/18 15:00 23:00 07:00 Output Total 650 ml Balance -[address] today: The ventricles are within normal limits in size and configuration. A 3 cm parenchymal hematoma is seen involving the inferior left frontal lobe. This has not significantly changed in size since the previous examination. There is surrounding edema and mass effect which has improved slightly. An acute subdural hematoma is seen involving the interhemispheric fissure which measures 2.5 mm in thickness, posteriorly. This has decreased in size since the previous examination where it measured 4.4 mm in thickness. Small amount of acute subarachnoid hemorrhage is seen which has decreased since the previous study. No skull fracture is seen. IMPRESSION: There has been slight interval decrease in the edema surrounding the parenchymal hematoma within the left frontal lobe. Interval decrease in size of the subdural hematoma involving the interhemispheric fissure with decrease in the subarachnoid hemorrhage. GUIDO TAMAYO MD Jun 11, 2018 11:58
--- NOTE | 2018-06-11 13:46 | PDOC ---
PROGRESS NOTES Subjective Subjective up ambulating with PT intermittent speech per Objective Objective Vital Signs Date Time Temp Pulse Resp B/P (MAP) Pulse Ox O2 Delivery O2 Flow Rate FiO2 06/11/18 11:00 98.8 66 18 112/71 (85) 99 Room Air 98.8 06/11/18 08:00 2.0 Intake and Output 06/11/18 07:00 Output Total 650 ml Balance -650 ml Output Urine Total 650 ml # Voids 8 # Bowel Movements 4 Physical Exam General: Alert, Cooperative, No acute distress MUSCULOSKELETAL: Other (RUFFIN) Neuro: Other (Muscle strength: 4/5 on right, 5-/5 on left) Assessment Assessment Problems Medical Problems: (1) ETOH abuse Status: Acute (2) Fall Status: Acute Plan Plan of Care F/U CT head- There has been slight interval decrease in the edema surrounding the parenchymal hematoma within the left frontal lobe. Interval decrease in size of the subdural hematoma involving the interhemispheric fissure with decrease in the subarachnoid hemorrhage okay to go to SNF will follow d/w Comment Review of Relevant I have reviewed the following items ranjan (where applicable) has been applied. Labs Laboratory Tests Test 06/10/18 06:45 06/11/18 08:40 White Blood Count 19.8 x10^3/uL (4.0-11.0) 9.2 x10^3/uL (4.0-11.0) Red Blood Count 4.59 x10^6/uL (4.30-5.70) 4.22 x10^6/uL (4.30-5.70) Hemoglobin 15.0 g/dL (13.0-17.5) 13.8 g/dL (13.0-17.5) Hematocrit 41.6 % (39.0-53.0) 38.3 % (39.0-53.0) Mean Corpuscular Volume 91 fL (79-100) 91 fL (79-100) Mean Corpuscular Hemoglobin 33 pg (25-35) 33 pg (25-35) Mean Corpuscular Hemoglobin Concent 36 g/dL (31-37) 36 g/dL (31-37) Red Cell Distribution Width 13.3 % (11.5-14.5) 13.5 % (11.5-14.5) Platelet Count 213 x10^3/uL (140-400) 208 x10^3/uL (140-400) Neutrophils (%) (Auto) 89 % (31-73) 83 % (31-73) Lymphocytes (%) (Auto) 6 % (24-48) 9 % (24-48) Monocytes (%) (Auto) 5 % (0-9) 8 % (0-9) Eosinophils (%) (Auto) 0 % (0-3) 0 % (0-3) Basophils (%) (Auto) 0 % (0-3) 0 % (0-3) Neutrophils # (Auto) 17.5 x10^3uL (1.8-7.7) 7.6 x10^3uL (1.8-7.7) Lymphocytes # (Auto) 1.1 x10^3/uL (1.0-4.8) 0.8 x10^3/uL (1.0-4.8) Monocytes # (Auto) 1.1 x10^3/uL (0.0-1.1) 0.7 x10^3/uL (0.0-1.1) Eosinophils # (Auto) 0.0 x10^3/uL (0.0-0.7) 0.0 x10^3/uL (0.0-0.7) Basophils # (Auto) 0.1 x10^3/uL (0.0-0.2) 0.0 x10^3/uL (0.0-0.2) Segmented Neutrophils % 84 % (35-66) Band Neutrophils % 3 % (0-9) Lymphocytes % 7 % (24-48) Monocytes % 6 % (0-10) Platelet Estimate Adequate (ADEQUATE) Sodium Level 126 mmol/L (136-145) 135 mmol/L (136-145) Potassium Level 3.9 mmol/L (3.5-5.1) 3.6 mmol/L (3.5-5.1) Chloride Level 94 mmol/L (98-107) 101 mmol/L (98-107) Carbon Dioxide Level 21 mmol/L (21-32) 25 mmol/L (21-32) Anion Gap 11 (6-14) 9 (6-14) Blood Urea Nitrogen 11 mg/dL (8-26) 11 mg/dL (8-26) Creatinine 0.8 mg/dL (0.7-1.3) 0.9 mg/dL (0.7-1.3) Estimated GFR (Cockcroft-Gault) 99.6 87.0 Glucose Level 113 mg/dL (70-99) 134 mg/dL (70-99) Calcium Level 8.9 mg/dL (8.5-10.1) 8.3 mg/dL (8.5-10.1) Laboratory Tests Test 06/11/18 08:40 White Blood Count 9.2 x10^3/uL (4.0-11.0) Red Blood Count 4.22 x10^6/uL (4.30-5.70) Hemoglobin 13.8 g/dL (13.0-17.5) Hematocrit 38.3 % (39.0-53.0) Mean Corpuscular Volume 91 fL (79-100) Mean Corpuscular Hemoglobin 33 pg (25-35) Mean Corpuscular Hemoglobin Concent 36 g/dL (31-37) Red Cell Distribution Width 13.5 % (11.5-14.5) Platelet Count 208 x10^3/uL (140-400) Neutrophils (%) (Auto) 83 % (31-73) Lymphocytes (%) (Auto) 9 % (24-48) Monocytes (%) (Auto) 8 % (0-9) Eosinophils (%) (Auto) 0 % (0-3) Basophils (%) (Auto) 0 % (0-3) Neutrophils # (Auto) 7.6 x10^3uL (1.8-7.7) Lymphocytes # (Auto) 0.8 x10^3/uL (1.0-4.8) Monocytes # (Auto) 0.7 x10^3/uL (0.0-1.1) Eosinophils # (Auto) 0.0 x10^3/uL (0.0-0.7) Basophils # (Auto) 0.0 x10^3/uL (0.0-0.2) Sodium Level 135 mmol/L (136-145) Potassium Level 3.6 mmol/L (3.5-5.1) Chloride Level 101 mmol/L (98-107) Carbon Dioxide Level 25 mmol/L (21-32) Anion Gap 9 (6-14) Blood Urea Nitrogen 11 mg/dL (8-26) Creatinine 0.9 mg/dL (0.7-1.3) Estimated GFR (Cockcroft-Gault) 87.0 Glucose Level 134 mg/dL (70-99) Calcium Level 8.3 mg/dL (8.5-10.1) Medications Current Medications Sodium Chloride 1,000 ml @ 1,000 mls/hr 1X ONCE IV Last administered on at 12:33; Start 06/07/18 at 12:15; Stop 06/07/18 at 13:14; Status DC Ondansetron HCl (Zofran) 4 mg PRN Q8HRS PRN IV NAUSEA/VOMITING; Start 06/07/18 at 13:45; Stop 06/08/18 at 13:44; Status DC Morphine Sulfate (Morphine Sulfate) 4 mg PRN Q2HR PRN IV PAIN Last administered on 06/08/18at 06:47; Start 06/07/18 at 13:45; Stop 06/08/18 at 13:44 ; Status DC Potassium Chloride/Water 100 ml @ 100 mls/hr Q1H IV Last administered on at 19:51; Start 06/07/18 at 15:00; Stop 06/07/18 at 18:59; Status DC Multivitamins 10 ml/Thiamine HCl 100 mg/Folic Acid 1 mg/Sodium Chloride 1,011.2 ml @ 100 mls/ hr DAILY IV Last administered on 06/11/18at 09:06; Start at 16:00; Stop 06/11/18 at 19:07 Lorazepam (Ativan) 2 mg PRN Q1HR PRN IV For CIWA 8-14 Last administered on 06/09at 14:16; Start 06/07/18 at 15:00; Stop 06/10/18 at 11:44; Status DC Lorazepam (Ativan) 4 mg PRN Q1HR PRN IV For CIWA 15 or greater; Start 06/07/18 at 15:00; Stop 06/10/18 at 11:44; Status DC Multivitamins 10 ml/Thiamine HCl 100 mg/Folic Acid 1 mg/Sodium Chloride 1,011.2 ml @ 100 mls/ hr DAILY IV ; Start 06/08/18 at 09:00; Stop 06/12/18 at 19:07; Status UNV Multivitamins (Thera M Plus) 1 tab DAILY PO ; Start 06/12/18 at 09:00 Folic Acid (Folic Acid) 1 mg DAILY PO ; Start 06/12/18 at 09:00 Lorazepam (Ativan) 4 mg PRN Q1HR PRN PO For CIWA 8-14; Start 06/07/18 at 17:30 ; Stop 06/10/18 at 11:44; Status DC Lorazepam (Ativan) 8 mg PRN Q1HR PRN PO For CIWA 15 or greater; Start 06/07/18 at 17:30; Stop 06/10/18 at 11:44; Status DC Lorazepam (Ativan) 4 mg PRN Q1HR PRN IV For CIWA 15 or greater; Start 06/07/18 at 17:30; Status UNV Haloperidol Lactate (Haldol Inj) 5 mg PRN Q4HRS PRN IVP Hallucinatns,Confusn, Delirium; Start 06/07/18 at 17:30; Stop 06/10/18 at 14:13; Status DC Diphenhydramine HCl (Benadryl) 25 mg PRN Q15MIN PRN IVP EPS symptoms 2'Haldol admin; Start 06/07/18 at 17:30 Clonidine HCl (Catapres) 0.1 mg PRN Q1HR PRN PO SBP > 180 or DBP > 100, MRX3; Start 06/07/18 at 17:30 Lorazepam (Ativan) 2 mg PRN Q15MIN PRN IV ; Start 06/07/18 at 17:30; Status UNV Lorazepam (Ativan) 4 mg PRN Q15MIN PRN IV ; Start 06/07/18 at 17:30; Status UNV Multivitamins 10 ml/Thiamine HCl 100 mg/Folic Acid 1 mg/Sodium Chloride 1,011.2 ml @ 100 mls/ hr DAILY IV ; Start 06/08/18 at 09:00; Stop 06/12/18 at 19:07; Status UNV Enalaprilat (Vasotec Inj) 1.25 mg PRN Q6HRS PRN IVP HYPERTENSION, SEE COMMENTS Last administered on 06/08/18at 20:14; Start 06/08/18 at 09:30 Acetaminophen (Tylenol) 650 mg PRN Q6HRS PRN PO FEVER; Start 06/08/18 at 09:45 Ondansetron HCl (Zofran) 4 mg PRN Q6HRS PRN IV NAUSEA/VOMITING; Start 06/08/18 at 09:45 Morphine Sulfate (Morphine Sulfate) 2 mg PRN Q2HR PRN IV MODERATE TO SEVERE PAIN Last administered on 06/11/18 03:01; Start 06/08/18 at 09:45 Tramadol HCl (Ultram) 50 mg PRN Q6HRS PRN PO MILD TO MODERATE PAIN Last administered on 06/10/18 19:17; Start 06/08/18 at 09:45 Docusate Sodium (Colace) 100 mg PRN DAILY PRN PO CONSTIPATION (1st Choice); Start 06/08/18 at 09:45 Amino Acids/ Glycerin/ Electrolytes 1,000 ml @ 80 mls/hr [id number] IV Last administered on 06/09/18 02:21; Start 06/08/18 at 10:30; Stop 06/09/18 at 08:01 ; Status DC Sodium Chloride 1,000 ml @ 100 mls/hr Q10H IV Last administered on 06/11/18 06:00; Start 06/09/18 at 08:00 Lisinopril (Prinivil) 20 mg DAILY PO Last administered on 06/10/18at 08:40; Start 06/09/18 at 09:00; Stop 06/10/18 at 11:44; Status DC Senna/Docusate Sodium (Senna Plus) 1 tab BID PO Last administered on 06/11/18 09:06; Start 06/09/18 at 09:00 Docusate Sodium (Colace) 100 mg BID PO Last administered on 06/11/18 09:06; Start 06/09/18 at 09:00 Magnesium Hydroxide (Milk Of Magnesia) 2,400 mg PRN Q12HR PRN PO CONSTIPATION 3RD CHOICE Last administered on 06/09/18at 12:52; Start 06/09/18 at 08:15 Lactulose (Lactulose) 20 gm PRN Q12HR PRN PO CONSTIPATION 2ND CHOICE; Start at 08:15 Influenza Virus Vaccine (Afluria Trivalent [id number] Syringe) 0.5 ml ONCE ONCE VAX IM Last administered on 9/22/18at 09:08; Start 06/09/18 at 10:00; Stop at 10:01; Status DC Multi-Ingredient Mouthwash/Gargle (Gi Cocktail) 20 ml PRN Q15MIN PRN PO CHEST PAIN Last administered on 06/09/18at 15:58; Start 06/09/18 at 09:15 Bisacodyl (Dulcolax Tab) 10 mg DAILY PO Last administered on 06/11/18at 09:06; Start 06/09/18 at 12:00 Magnesium Hydroxide (Milk Of Magnesia) 2,400 mg PRN DAILY PRN PO CONSTIPATION ( 2nd Choice); Start 06/09/18 at 11:45; Stop 06/10/18 at 19:37; Status DC Magnesium Citrate (Citroma) 296 ml PRN 1X PRN PO CONSTIPATION; Start 06/09/18 at 11:45 Lorazepam (Ativan) 0.5 mg PRN Q8HRS PRN PO ANXIETY / AGITATION; Start 06/10/18 at 11:45 Haloperidol Lactate (Haldol Inj) 2 mg PRN Q4HRS PRN IVP Hallucinatns,Confusn, Delirium; Start 06/10/18 at 14:15 Vitals/I & O Vital Sign - Last 24 Hours 06/10/18 06/10/18 06/10/18 06/10/18 15:00 19:00 19:17 20:00 Temp 98.0 98.8 98.0 98.8 Pulse 77 81 Resp 16 18 20 B/P (MAP) 100/60 (73) 110/61 (77) Pulse Ox 93 95 93 O2 Delivery Room Air Room Air Room Air Room Air 06/10/18 06/10/18 06/10/18 06/11/18 20:03 20:17 22:53 03:00 Temp 98.1 97.7 98.1 97.7 Pulse 70 56 Resp 18 18 18 18 B/P (MAP) 125/81 (96) 118/74 (89) Pulse Ox 93 96 96 96 O2 Delivery Room Air Room Air Room Air Room Air 06/11/18 06/11/18 06/11/18 06/11/18 03:01 03:31 07:00 08:00 Temp 98.2 98.2 Pulse 64 Resp 20 20 16 B/P (MAP) 133/81 (98) Pulse Ox 96 96 95 O2 Delivery Room Air Room Air Room Air Room Air O2 Flow Rate 2.0 06/11/18 11:00 Temp 98.8 98.8 Pulse 66 Resp 18 B/P (MAP) 112/71 (85) Pulse Ox 99 O2 Delivery Room Air Intake and Output 06/10/18 06/10/18 06/11/18 15:00 23:00 07:00 Output Total 650 ml Balance -650 ml SUSAN ACEVES APRN Jun 11, 2018 13:46
[2018-06-11 15:00] VITALS: BP 130/76
[2018-06-11] MEDS: ACETAMINOPHEN 325 MG TABLET. PO PRN (17:18)
[2018-06-11 19:00] VITALS: BP 135/80
[2018-06-11 23:00] VITALS: BP 123/76
[2018-06-12 03:00] VITALS: BP 145/97
[2018-06-12 04:14] LABS: ALBUMIN 3.1 g/dL (3.4-5.0); ALBUMIN/GLOBULIN RATIO 0.8 (1.0-1.7); CREATININE 0.8 mg/dL (0.7-1.3); GFR 99.6; POTASSIUM 3.5 mmol/L (3.5-5.1); TOTAL BILIRUBIN 0.8 mg/dL (0.2-1.0); TOTAL PROTEIN 7.2 g/dL (6.4-8.2)
[2018-06-12] MEDS: IV NORMAL SALINE 1000ML BAG 1,000 ML IV SCH (05:31)
[2018-06-12 07:00] VITALS: BP 146/83
[2018-06-12] MEDS: MULTIVITAMIN with MINERAL TABLET. PO SCH (08:48)
[2018-06-12] MEDS: SENNOSIDES/DOCUSATE 8.6/50MG TABLET. PO SCH ×2 (08:48→19:42)
[2018-06-12] MEDS: FOLIC ACID 1 MG TABLET. PO SCH (08:48)
[2018-06-12] MEDS: DOCUSATE SODIUM 100 MG CAPSULE. PO SCH ×2 (08:48→19:42)
[2018-06-12] MEDS: BISACODYL 5 MG TABLET.DR. PO SCH (08:48)
--- NOTE | 2018-06-12 09:11 | PDOC ---
PROGRESS NOTES Subjective Subjective He apparently had some problems being awake and restless all night long and getting up and walking in hallways. Objective Objective Vital Signs Date Time Temp Pulse Resp B/P (MAP) Pulse Ox O2 Delivery O2 Flow Rate FiO2 06/12/18 07:00 97.5 61 18 146/83 (104) 97 Room Air 97.5 06/11/18 08:00 2.0 Intake and Output 06/12/18 07:00 Intake Total 1000 ml Output Total 650 ml Balance 350 ml IV Total 1000 ml Output Urine Total 650 ml # Voids 1 Physical Exam Physical Exam He is supine in bed and sleeping and his at bedside and he continues with significant cognitive and communication deficits making him unsafe to return home at this time. Assessment Assessment Problems Medical Problems: (1) ETOH abuse Status: Acute (2) Fall Status: Acute Plan Plan of Care To rehab unit after screen is completed and to SNF where there is speech pathologist available to work with him on a daily basis if his health insurance does not approve rehab unit. Comment Review of Relevant I have reviewed the following items ranjan (where applicable) has been applied. Labs Laboratory Tests Test 06/11/18 08:40 06/12/18 03:10 White Blood Count 9.2 x10^3/uL (4.0-11.0) Red Blood Count 4.22 x10^6/uL (4.30-5.70) Hemoglobin 13.8 g/dL (13.0-17.5) Hematocrit 38.3 % (39.0-53.0) Mean Corpuscular Volume 91 fL (79-100) Mean Corpuscular Hemoglobin 33 pg (25-35) Mean Corpuscular Hemoglobin Concent 36 g/dL (31-37) Red Cell Distribution Width 13.5 % (11.5-14.5) Platelet Count 208 x10^3/uL (140-400) Neutrophils (%) (Auto) 83 % (31-73) Lymphocytes (%) (Auto) 9 % (24-48) Monocytes (%) (Auto) 8 % (0-9) Eosinophils (%) (Auto) 0 % (0-3) Basophils (%) (Auto) 0 % (0-3) Neutrophils # (Auto) 7.6 x10^3uL (1.8-7.7) Lymphocytes # (Auto) 0.8 x10^3/uL (1.0-4.8) Monocytes # (Auto) 0.7 x10^3/uL (0.0-1.1) Eosinophils # (Auto) 0.0 x10^3/uL (0.0-0.7) Basophils # (Auto) 0.0 x10^3/uL (0.0-0.2) Sodium Level 135 mmol/L (136-145) 136 mmol/L (136-145) Potassium Level 3.6 mmol/L (3.5-5.1) 3.5 mmol/L (3.5-5.1) Chloride Level 101 mmol/L (98-107) 101 mmol/L (98-107) Carbon Dioxide Level 25 mmol/L (21-32) 25 mmol/L (21-32) Anion Gap 9 (6-14) 10 (6-14) Blood Urea Nitrogen 11 mg/dL (8-26) 8 mg/dL (8-26) Creatinine 0.9 mg/dL (0.7-1.3) 0.8 mg/dL (0.7-1.3) Estimated GFR (Cockcroft-Gault) 87.0 99.6 Glucose Level 134 mg/dL (70-99) 102 mg/dL (70-99) Calcium Level 8.3 mg/dL (8.5-10.1) 9.0 mg/dL (8.5-10.1) BUN/Creatinine Ratio 10 (6-20) Total Bilirubin 0.8 mg/dL (0.2-1.0) Aspartate Amino Transf (AST/SGOT) 15 U/L (15-37) Alanine Aminotransferase (ALT/SGPT) 49 U/L (16-63) Alkaline Phosphatase 85 U/L (46-116) Total Protein 7.2 g/dL (6.4-8.2) Albumin 3.1 g/dL (3.4-5.0) Albumin/Globulin Ratio 0.8 (1.0-1.7) Laboratory Tests Test 06/12/18 03:10 Sodium Level 136 mmol/L (136-145) Potassium Level 3.5 mmol/L (3.5-5.1) Chloride Level 101 mmol/L (98-107) Carbon Dioxide Level 25 mmol/L (21-32) Anion Gap 10 (6-14) Blood Urea Nitrogen 8 mg/dL (8-26) Creatinine 0.8 mg/dL (0.7-1.3) Estimated GFR (Cockcroft-Gault) 99.6 BUN/Creatinine Ratio 10 (6-20) Glucose Level 102 mg/dL (70-99) Calcium Level 9.0 mg/dL (8.5-10.1) Total Bilirubin 0.8 mg/dL (0.2-1.0) Aspartate Amino Transf (AST/SGOT) 15 U/L (15-37) Alanine Aminotransferase (ALT/SGPT) 49 U/L (16-63) Alkaline Phosphatase 85 U/L (46-116) Total Protein 7.2 g/dL (6.4-8.2) Albumin 3.1 g/dL (3.4-5.0) Albumin/Globulin Ratio 0.8 (1.0-1.7) Medications Current Medications Sodium Chloride 1,000 ml @ 1,000 mls/hr 1X ONCE IV Last administered on at 12:33; Start 06/07/18 at 12:15; Stop 06/07/18 at 13:14; Status DC Ondansetron HCl (Zofran) 4 mg PRN Q8HRS PRN IV NAUSEA/VOMITING; Start 06/07/18 at 13:45; Stop 06/08/18 at 13:44; Status DC Morphine Sulfate (Morphine Sulfate) 4 mg PRN Q2HR PRN IV PAIN Last administered on 06/08/18at 06:47; Start 06/07/18 at 13:45; Stop 06/08/18 at 13:44 ; Status DC Potassium Chloride/Water 100 ml @ 100 mls/hr Q1H IV Last administered on at 19:51; Start 06/07/18 at 15:00; Stop 06/07/18 at 18:59; Status DC Multivitamins 10 ml/Thiamine HCl 100 mg/Folic Acid 1 mg/Sodium Chloride 1,011.2 ml @ 100 mls/ hr DAILY IV Last administered on 06/11/18at 09:06; Start at 16:00; Stop 06/11/18 at 19:07; Status DC Lorazepam (Ativan) 2 mg PRN Q1HR PRN IV For CIWA 8-14 Last administered on 06/09at 14:16; Start 06/07/18 at 15:00; Stop 06/10/18 at 11:44; Status DC Lorazepam (Ativan) 4 mg PRN Q1HR PRN IV For CIWA 15 or greater; Start 06/07/18 at 15:00; Stop 06/10/18 at 11:44; Status DC Multivitamins 10 ml/Thiamine HCl 100 mg/Folic Acid 1 mg/Sodium Chloride 1,011.2 ml @ 100 mls/ hr DAILY IV ; Start 06/08/18 at 09:00; Stop 06/12/18 at 19:07; Status UNV Multivitamins (Thera M Plus) 1 tab DAILY PO Last administered on 06/12/18at 08: 48; Start 06/12/18 at 09:00 Folic Acid (Folic Acid) 1 mg DAILY PO Last administered on 06/12/18at 08:48; Start 06/12/18 at 09:00 Lorazepam (Ativan) 4 mg PRN Q1HR PRN PO For CIWA 8-14; Start 06/07/18 at 17:30 ; Stop 06/10/18 at 11:44; Status DC Lorazepam (Ativan) 8 mg PRN Q1HR PRN PO For CIWA 15 or greater; Start 06/07/18 at 17:30; Stop 06/10/18 at 11:44; Status DC Lorazepam (Ativan) 4 mg PRN Q1HR PRN IV For CIWA 15 or greater; Start 06/07/18 at 17:30; Status UNV Haloperidol Lactate (Haldol Inj) 5 mg PRN Q4HRS PRN IVP Hallucinatns,Confusn, Delirium; Start 06/07/18 at 17:30; Stop 06/10/18 at 14:13; Status DC Diphenhydramine HCl (Benadryl) 25 mg PRN Q15MIN PRN IVP EPS symptoms 2'Haldol admin; Start 06/07/18 at 17:30 Clonidine HCl (Catapres) 0.1 mg PRN Q1HR PRN PO SBP > 180 or DBP > 100, MRX3; Start 06/07/18 at 17:30 Lorazepam (Ativan) 2 mg PRN Q15MIN PRN IV ; Start 06/07/18 at 17:30; Status UNV Lorazepam (Ativan) 4 mg PRN Q15MIN PRN IV ; Start 06/07/18 at 17:30; Status UNV Multivitamins 10 ml/Thiamine HCl 100 mg/Folic Acid 1 mg/Sodium Chloride 1,011.2 ml @ 100 mls/ hr DAILY IV ; Start 06/08/18 at 09:00; Stop 06/12/18 at 19:07; Status UNV Enalaprilat (Vasotec Inj) 1.25 mg PRN Q6HRS PRN IVP HYPERTENSION, SEE COMMENTS Last administered on 06/08/18at 20:14; Start 06/08/18 at 09:30 Acetaminophen (Tylenol) 650 mg PRN Q6HRS PRN PO FEVER Last administered on 06/11at 17:18; Start 06/08/18 at 09:45 Ondansetron HCl (Zofran) 4 mg PRN Q6HRS PRN IV NAUSEA/VOMITING; Start 06/08/18 at 09:45 Morphine Sulfate (Morphine Sulfate) 2 mg PRN Q2HR PRN IV MODERATE TO SEVERE PAIN Last administered on 06/11/18at 03:01; Start 06/08/18 at 09:45 Tramadol HCl (Ultram) 50 mg PRN Q6HRS PRN PO MILD TO MODERATE PAIN Last administered on 06/10/18at 19:17; Start 06/08/18 at 09:45 Docusate Sodium (Colace) 100 mg PRN DAILY PRN PO CONSTIPATION (1st Choice); Start 06/08/18 at 09:45 Amino Acids/ Glycerin/ Electrolytes 1,000 ml @ 80 mls/hr [id number] IV Last administered on 06/09/18at 02:21; Start 06/08/18 at 10:30; Stop 06/09/18 at 08:01 ; Status DC Sodium Chloride 1,000 ml @ 100 mls/hr Q10H IV Last administered on 06/11/18at 20:41; Start 06/09/18 at 08:00 Lisinopril (Prinivil) 20 mg DAILY PO Last administered on 06/10/18at 08:40; Start 06/09/18 at 09:00; Stop 06/10/18 at 11:44; Status DC Senna/Docusate Sodium (Senna Plus) 1 tab BID PO Last administered on 06/12/18at 08:48; Start 06/09/18 at 09:00 Docusate Sodium (Colace) 100 mg BID PO Last administered on 06/12/18at 08:48; Start 06/09/18 at 09:00 Magnesium Hydroxide (Milk Of Magnesia) 2,400 mg PRN Q12HR PRN PO CONSTIPATION 3RD CHOICE Last administered on 06/09/18at 12:52; Start 06/09/18 at 08:15 Lactulose (Lactulose) 20 gm PRN Q12HR PRN PO CONSTIPATION 2ND CHOICE; Start at 08:15 Influenza Virus Vaccine (Afluria Trivalent [id number] Syringe) 0.5 ml ONCE ONCE VAX IM Last administered on 06/09/18at 09:08; Start 06/09/18 at 10:00; Stop at 10:01; Status DC Multi-Ingredient Mouthwash/Gargle (Gi Cocktail) 20 ml PRN Q15MIN PRN PO CHEST PAIN Last administered on 06/09/18at 15:58; Start 06/09/18 at 09:15 Bisacodyl (Dulcolax Tab) 10 mg DAILY PO Last administered on 06/12/18at 08:48; Start 06/09/18 at 12:00 Magnesium Hydroxide (Milk Of Magnesia) 2,400 mg PRN DAILY PRN PO CONSTIPATION ( 2nd Choice); Start 06/09/18 at 11:45; Stop 06/10/18 at 19:37; Status DC Magnesium Citrate (Citroma) 296 ml PRN 1X PRN PO CONSTIPATION; Start 06/09/18 at 11:45 Lorazepam (Ativan) 0.5 mg PRN Q8HRS PRN PO ANXIETY / AGITATION; Start 06/10/18 at 11:45 Haloperidol Lactate (Haldol Inj) 2 mg PRN Q4HRS PRN IVP Hallucinatns,Confusn, Delirium; Start 06/10/18 at 14:15 Vitals/I & O Vital Sign - Last 24 Hours 06/11/18 06/11/18 06/11/18 06/11/18 11:00 15:00 19:00 20:00 Temp 98.8 98.3 98.3 98.8 98.3 98.3 Pulse 66 75 86 Resp 18 18 18 B/P (MAP) 112/71 (85) 130/76 (94) 135/80 (98) Pulse Ox 99 100 99 O2 Delivery Room Air Room Air Room Air Room Air 06/11/18 06/12/18 06/12/18 23:00 03:00 07:00 Temp 98.1 97.7 97.5 98.1 97.7 97.5 Pulse 65 59 61 Resp 18 B/P (MAP) 123/76 (92) 145/97 (113) 146/83 (104) Pulse Ox 96 98 97 O2 Delivery Room Air Room Air Room Air Intake and Output 06/11/18 06/11/18 06/12/18 15:00 23:00 07:00 Intake Total 1000 ml Output Total 650 ml Balance 1000 ml -650 ml JIMMY DAVIS MD Jun 12, 2018 09:11
--- NOTE | 2018-06-12 09:50 | PDOC ---
PROGRESS NOTES Assessment Problems Medical Problems: (1) ETOH abuse Status: Acute (2) Fall Status: Acute Large left frontal hematoma with surrounding edema. Metabolic encephalopathy. Left parasagiital SDH. Headaches. Fall. Alcoholism. Degenerative cervical spine disease. Plan BP control, keep less than 150/85 mmHg. Avoid anticoagulant and antiplatelet agents this time. Treat medical diseases. Okay to go to [facility] unit Subjective Denies headache Objective Vital Signs Date Time Temp Pulse Resp B/P (MAP) Pulse Ox O2 Delivery O2 Flow Rate FiO2 06/12/18 08:00 Room Air 06/12/18 07:00 97.5 61 18 146/83 (104) 97 97.5 06/11/18 08:00 2.0 Intake and Output 06/12/18 07:00 Intake Total 1000 ml Output Total 650 ml Balance 350 ml IV Total 1000 ml Output Urine Total 650 ml # Voids 1 PHYSICAL EXAM Alert. Oriented to place and person, not date. PERRL. EOMI. CN: no focal findings. Muscle tone: normal. Muscle strength: 4/5 on right, 5-/5 on left DTR: 2+ Plantar reflex: flexor Gait: not examined in bed. Sensory exam: no abnormal findings. No cerebellar signs elicited. Review of Relevant I have reviewed the following items ranjan (where applicable) has been applied. Labs Laboratory Tests Test 06/11/18 08:40 06/12/18 03:10 White Blood Count 9.2 x10^3/uL (4.0-11.0) Red Blood Count 4.22 x10^6/uL (4.30-5.70) Hemoglobin 13.8 g/dL (13.0-17.5) Hematocrit 38.3 % (39.0-53.0) Mean Corpuscular Volume 91 fL (79-100) Mean Corpuscular Hemoglobin 33 pg (25-35) Mean Corpuscular Hemoglobin Concent 36 g/dL (31-37) Red Cell Distribution Width 13.5 % (11.5-14.5) Platelet Count 208 x10^3/uL (140-400) Neutrophils (%) (Auto) 83 % (31-73) Lymphocytes (%) (Auto) 9 % (24-48) Monocytes (%) (Auto) 8 % (0-9) Eosinophils (%) (Auto) 0 % (0-3) Basophils (%) (Auto) 0 % (0-3) Neutrophils # (Auto) 7.6 x10^3uL (1.8-7.7) Lymphocytes # (Auto) 0.8 x10^3/uL (1.0-4.8) Monocytes # (Auto) 0.7 x10^3/uL (0.0-1.1) Eosinophils # (Auto) 0.0 x10^3/uL (0.0-0.7) Basophils # (Auto) 0.0 x10^3/uL (0.0-0.2) Sodium Level 135 mmol/L (136-145) 136 mmol/L (136-145) Potassium Level 3.6 mmol/L (3.5-5.1) 3.5 mmol/L (3.5-5.1) Chloride Level 101 mmol/L (98-107) 101 mmol/L (98-107) Carbon Dioxide Level 25 mmol/L (21-32) 25 mmol/L (21-32) Anion Gap 9 (6-14) 10 (6-14) Blood Urea Nitrogen 11 mg/dL (8-26) 8 mg/dL (8-26) Creatinine 0.9 mg/dL (0.7-1.3) 0.8 mg/dL (0.7-1.3) Estimated GFR (Cockcroft-Gault) 87.0 99.6 Glucose Level 134 mg/dL (70-99) 102 mg/dL (70-99) Calcium Level 8.3 mg/dL (8.5-10.1) 9.0 mg/dL (8.5-10.1) BUN/Creatinine Ratio 10 (6-20) Total Bilirubin 0.8 mg/dL (0.2-1.0) Aspartate Amino Transf (AST/SGOT) 15 U/L (15-37) Alanine Aminotransferase (ALT/SGPT) 49 U/L (16-63) Alkaline Phosphatase 85 U/L (46-116) Total Protein 7.2 g/dL (6.4-8.2) Albumin 3.1 g/dL (3.4-5.0) Albumin/Globulin Ratio 0.8 (1.0-1.7) Laboratory Tests Test 06/12/18 03:10 Sodium Level 136 mmol/L (136-145) Potassium Level 3.5 mmol/L (3.5-5.1) Chloride Level 101 mmol/L (98-107) Carbon Dioxide Level 25 mmol/L (21-32) Anion Gap 10 (6-14) Blood Urea Nitrogen 8 mg/dL (8-26) Creatinine 0.8 mg/dL (0.7-1.3) Estimated GFR (Cockcroft-Gault) 99.6 BUN/Creatinine Ratio 10 (6-20) Glucose Level 102 mg/dL (70-99) Calcium Level 9.0 mg/dL (8.5-10.1) Total Bilirubin 0.8 mg/dL (0.2-1.0) Aspartate Amino Transf (AST/SGOT) 15 U/L (15-37) Alanine Aminotransferase (ALT/SGPT) 49 U/L (16-63) Alkaline Phosphatase 85 U/L (46-116) Total Protein 7.2 g/dL (6.4-8.2) Albumin 3.1 g/dL (3.4-5.0) Albumin/Globulin Ratio 0.8 (1.0-1.7) Medications Current Medications Sodium Chloride 1,000 ml @ 1,000 mls/hr 1X ONCE IV Last administered on at 12:33; Start 06/07/18 at 12:15; Stop 06/07/18 at 13:14; Status DC Ondansetron HCl (Zofran) 4 mg PRN Q8HRS PRN IV NAUSEA/VOMITING; Start 06/07/18 at 13:45; Stop 06/08/18 at 13:44; Status DC Morphine Sulfate (Morphine Sulfate) 4 mg PRN Q2HR PRN IV PAIN Last administered on 06/08/18at 06:47; Start 06/07/18 at 13:45; Stop 06/08/18 at 13:44 ; Status DC Potassium Chloride/Water 100 ml @ 100 mls/hr Q1H IV Last administered on at 19:51; Start 06/07/18 at 15:00; Stop 06/07/18 at 18:59; Status DC Multivitamins 10 ml/Thiamine HCl 100 mg/Folic Acid 1 mg/Sodium Chloride 1,011.2 ml @ 100 mls/ hr DAILY IV Last administered on 06/11/18at 09:06; Start at 16:00; Stop 06/11/18 at 19:07; Status DC Lorazepam (Ativan) 2 mg PRN Q1HR PRN IV For CIWA 8-14 Last administered on 06/09at 14:16; Start 06/07/18 at 15:00; Stop 06/10/18 at 11:44; Status DC Lorazepam (Ativan) 4 mg PRN Q1HR PRN IV For CIWA 15 or greater; Start 06/07/18 at 15:00; Stop 06/10/18 at 11:44; Status DC Multivitamins 10 ml/Thiamine HCl 100 mg/Folic Acid 1 mg/Sodium Chloride 1,011.2 ml @ 100 mls/ hr DAILY IV ; Start 06/08/18 at 09:00; Stop 06/12/18 at 19:07; Status UNV Multivitamins (Thera M Plus) 1 tab DAILY PO Last administered on 06/12/18at 08: 48; Start 06/12/18 at 09:00 Folic Acid (Folic Acid) 1 mg DAILY PO Last administered on 06/12/18at 08:48; Start 06/12/18 at 09:00 Lorazepam (Ativan) 4 mg PRN Q1HR PRN PO For CIWA 8-14; Start 06/07/18 at 17:30 ; Stop 06/10/18 at 11:44; Status DC Lorazepam (Ativan) 8 mg PRN Q1HR PRN PO For CIWA 15 or greater; Start 06/07/18 at 17:30; Stop 06/10/18 at 11:44; Status DC Lorazepam (Ativan) 4 mg PRN Q1HR PRN IV For CIWA 15 or greater; Start 06/07/18 at 17:30; Status UNV Haloperidol Lactate (Haldol Inj) 5 mg PRN Q4HRS PRN IVP Hallucinatns,Confusn, Delirium; Start 06/07/18 at 17:30; Stop 06/10/18 at 14:13; Status DC Diphenhydramine HCl (Benadryl) 25 mg PRN Q15MIN PRN IVP EPS symptoms 2'Haldol admin; Start 06/07/18 at 17:30 Clonidine HCl (Catapres) 0.1 mg PRN Q1HR PRN PO SBP > 180 or DBP > 100, MRX3; Start 06/07/18 at 17:30 Lorazepam (Ativan) 2 mg PRN Q15MIN PRN IV ; Start 06/07/18 at 17:30; Status UNV Lorazepam (Ativan) 4 mg PRN Q15MIN PRN IV ; Start 06/07/18 at 17:30; Status UNV Multivitamins 10 ml/Thiamine HCl 100 mg/Folic Acid 1 mg/Sodium Chloride 1,011.2 ml @ 100 mls/ hr DAILY IV ; Start 06/08/18 at 09:00; Stop 06/12/18 at 19:07; Status UNV Enalaprilat (Vasotec Inj) 1.25 mg PRN Q6HRS PRN IVP HYPERTENSION, SEE COMMENTS Last administered on 06/08/18at 20:14; Start 06/08/18 at 09:30 Acetaminophen (Tylenol) 650 mg PRN Q6HRS PRN PO FEVER Last administered on 06/11at 17:18; Start 06/08/18 at 09:45 Ondansetron HCl (Zofran) 4 mg PRN Q6HRS PRN IV NAUSEA/VOMITING; Start 06/08/18 at 09:45 Morphine Sulfate (Morphine Sulfate) 2 mg PRN Q2HR PRN IV MODERATE TO SEVERE PAIN Last administered on 06/11/18at 03:01; Start 06/08/18 at 09:45 Tramadol HCl (Ultram) 50 mg PRN Q6HRS PRN PO MILD TO MODERATE PAIN Last administered on 06/10/18at 19:17; Start 06/08/18 at 09:45 Docusate Sodium (Colace) 100 mg PRN DAILY PRN PO CONSTIPATION (1st Choice); Start 06/08/18 at 09:45 Amino Acids/ Glycerin/ Electrolytes 1,000 ml @ 80 mls/hr [id number] IV Last administered on 06/09/18at 02:21; Start 06/08/18 at 10:30; Stop 06/09/18 at 08:01 ; Status DC Sodium Chloride 1,000 ml @ 100 mls/hr Q10H IV Last administered on 06/11/18at 20:41; Start 06/09/18 at 08:00 Lisinopril (Prinivil) 20 mg DAILY PO Last administered on 06/10/18at 08:40; Start 06/09/18 at 09:00; Stop 06/10/18 at 11:44; Status DC Senna/Docusate Sodium (Senna Plus) 1 tab BID PO Last administered on 06/12/18at 08:48; Start 06/09/18 at 09:00 Docusate Sodium (Colace) 100 mg BID PO Last administered on 06/12/18at 08:48; Start 06/09/18 at 09:00 Magnesium Hydroxide (Milk Of Magnesia) 2,400 mg PRN Q12HR PRN PO CONSTIPATION 3RD CHOICE Last administered on 06/09/18at 12:52; Start 06/09/18 at 08:15 Lactulose (Lactulose) 20 gm PRN Q12HR PRN PO CONSTIPATION 2ND CHOICE; Start at 08:15 Influenza Virus Vaccine (Afluria Trivalent [id number] Syringe) 0.5 ml ONCE ONCE VAX IM Last administered on 06/09/18at 09:08; Start 06/09/18 at 10:00; Stop at 10:01; Status DC Multi-Ingredient Mouthwash/Gargle (Gi Cocktail) 20 ml PRN Q15MIN PRN PO CHEST PAIN Last administered on 06/09/18at 15:58; Start 06/09/18 at 09:15 Bisacodyl (Dulcolax Tab) 10 mg DAILY PO Last administered on 06/12/18at 08:48; Start 06/09/18 at 12:00 Magnesium Hydroxide (Milk Of Magnesia) 2,400 mg PRN DAILY PRN PO CONSTIPATION ( 2nd Choice); Start 06/09/18 at 11:45; Stop 06/10/18 at 19:37; Status DC Magnesium Citrate (Citroma) 296 ml PRN 1X PRN PO CONSTIPATION; Start 06/09/18 at 11:45 Lorazepam (Ativan) 0.5 mg PRN Q8HRS PRN PO ANXIETY / AGITATION; Start 06/10/18 at 11:45 Haloperidol Lactate (Haldol Inj) 2 mg PRN Q4HRS PRN IVP Hallucinatns,Confusn, Delirium; Start 06/10/18 at 14:15 Vitals/I & O Vital Sign - Last 24 Hours 06/11/18 06/11/18 06/11/18 06/11/18 11:00 15:00 19:00 20:00 Temp 98.8 98.3 98.3 98.8 98.3 98.3 Pulse 66 75 86 Resp 18 B/P (MAP) 112/71 (85) 130/76 (94) 135/80 (98) Pulse Ox 99 100 99 O2 Delivery Room Air Room Air Room Air Room Air 06/11/18 06/12/18 06/12/18 06/12/18 23:00 03:00 07:00 08:00 Temp 98.1 97.7 97.5 98.1 97.7 97.5 Pulse 65 59 61 Resp 18 B/P (MAP) 123/76 (92) 145/97 (113) 146/83 (104) Pulse Ox 96 98 97 O2 Delivery Room Air Room Air Room Air Room Air Intake and Output 06/11/18 06/11/18 06/12/18 15:00 23:00 07:00 Intake Total 1000 ml Output Total 650 ml Balance 1000 ml -650 ml GUIDO TAMAYO MD Jun 12, 2018 09:50
--- NOTE | 2018-06-12 09:53 | PDOC ---
PROGRESS NOTES Chief Complaint Chief Complaint left frontal hemorrhage with contusion, edema, from fall traumatic possible ETOH abuse AMS, with brain hemorrhage, with some confusion and memory issues constipation HTN hyponatremia encephalopathy plan: OK TO D/C TO REHAB [facility]OS[facility] F/U CT head- There has been slight interval decrease in the edema surrounding the parenchymal hematoma within the left frontal lobe. Interval decrease in size of the subdural hematoma involving the interhemispheric fissure with decrease in the subarachnoid hemorrhage okay to go to SNF fu with neurosx, neuro no sx for now CT repeated today stable PTOT keep BP <150/90 with iv meds prn, low po intake, dc PPN, add NS, dc ativan iv, add po low dose. talked to and daughter at bedside, pt has unsteady gait, will see if can dc rehab PLACEMENT History of Present Illness History of Present Illness ROS: no fever, chills, sob or chest pain headache much better talks slow, walk slow, slightly better today not like normal low po intake Na 127 06/10: agitated yesterday, got ativan 2mg iv x1, then sedated now Vitals Vitals Vital Signs Date Time Temp Pulse Resp B/P (MAP) Pulse Ox O2 Delivery O2 Flow Rate FiO2 06/12/18 08:00 Room Air 06/12/18 07:00 97.5 61 18 146/83 (104) 97 97.5 06/11/18 08:00 2.0 Physical Exam Physical Exam talks very slow, not answer some questions, bl strength ok General: Alert, Oriented X3, Cooperative, mild distress, Other (MENTATION SLOW , ENCEPHALOPATHIC) Heart: Regular rate, Normal S1, Normal S2 Lungs: Clear Abdomen: Normal bowel sounds, Soft Extremities: No clubbing, No cyanosis Skin: No rashes Labs LABS Laboratory Tests Test 06/12/18 03:10 Sodium Level 136 mmol/L (136-145) Potassium Level 3.5 mmol/L (3.5-5.1) Chloride Level 101 mmol/L (98-107) Carbon Dioxide Level 25 mmol/L (21-32) Anion Gap 10 (6-14) Blood Urea Nitrogen 8 mg/dL (8-26) Creatinine 0.8 mg/dL (0.7-1.3) Estimated GFR (Cockcroft-Gault) 99.6 BUN/Creatinine Ratio 10 (6-20) Glucose Level 102 mg/dL (70-99) Calcium Level 9.0 mg/dL (8.5-10.1) Total Bilirubin 0.8 mg/dL (0.2-1.0) Aspartate Amino Transf (AST/SGOT) 15 U/L (15-37) Alanine Aminotransferase (ALT/SGPT) 49 U/L (16-63) Alkaline Phosphatase 85 U/L (46-116) Total Protein 7.2 g/dL (6.4-8.2) Albumin 3.1 g/dL (3.4-5.0) Albumin/Globulin Ratio 0.8 (1.0-1.7) Assessment and Plan Assessmemt and Plan Problems Medical Problems: (1) ETOH abuse Status: Acute (2) Fall Status: Acute Comment Review of Relevant I have reviewed the following items ranjan (where applicable) has been applied. Labs Laboratory Tests Test 06/11/18 08:40 06/12/18 03:10 White Blood Count 9.2 x10^3/uL (4.0-11.0) Red Blood Count 4.22 x10^6/uL (4.30-5.70) Hemoglobin 13.8 g/dL (13.0-17.5) Hematocrit 38.3 % (39.0-53.0) Mean Corpuscular Volume 91 fL (79-100) Mean Corpuscular Hemoglobin 33 pg (25-35) Mean Corpuscular Hemoglobin Concent 36 g/dL (31-37) Red Cell Distribution Width 13.5 % (11.5-14.5) Platelet Count 208 x10^3/uL (140-400) Neutrophils (%) (Auto) 83 % (31-73) Lymphocytes (%) (Auto) 9 % (24-48) Monocytes (%) (Auto) 8 % (0-9) Eosinophils (%) (Auto) 0 % (0-3) Basophils (%) (Auto) 0 % (0-3) Neutrophils # (Auto) 7.6 x10^3uL (1.8-7.7) Lymphocytes # (Auto) 0.8 x10^3/uL (1.0-4.8) Monocytes # (Auto) 0.7 x10^3/uL (0.0-1.1) Eosinophils # (Auto) 0.0 x10^3/uL (0.0-0.7) Basophils # (Auto) 0.0 x10^3/uL (0.0-0.2) Sodium Level 135 mmol/L (136-145) 136 mmol/L (136-145) Potassium Level 3.6 mmol/L (3.5-5.1) 3.5 mmol/L (3.5-5.1) Chloride Level 101 mmol/L (98-107) 101 mmol/L (98-107) Carbon Dioxide Level 25 mmol/L (21-32) 25 mmol/L (21-32) Anion Gap 9 (6-14) 10 (6-14) Blood Urea Nitrogen 11 mg/dL (8-26) 8 mg/dL (8-26) Creatinine 0.9 mg/dL (0.7-1.3) 0.8 mg/dL (0.7-1.3) Estimated GFR (Cockcroft-Gault) 87.0 99.6 Glucose Level 134 mg/dL (70-99) 102 mg/dL (70-99) Calcium Level 8.3 mg/dL (8.5-10.1) 9.0 mg/dL (8.5-10.1) BUN/Creatinine Ratio 10 (6-20) Total Bilirubin 0.8 mg/dL (0.2-1.0) Aspartate Amino Transf (AST/SGOT) 15 U/L (15-37) Alanine Aminotransferase (ALT/SGPT) 49 U/L (16-63) Alkaline Phosphatase 85 U/L (46-116) Total Protein 7.2 g/dL (6.4-8.2) Albumin 3.1 g/dL (3.4-5.0) Albumin/Globulin Ratio 0.8 (1.0-1.7) Laboratory Tests Test 06/12/18 03:10 Sodium Level 136 mmol/L (136-145) Potassium Level 3.5 mmol/L (3.5-5.1) Chloride Level 101 mmol/L (98-107) Carbon Dioxide Level 25 mmol/L (21-32) Anion Gap 10 (6-14) Blood Urea Nitrogen 8 mg/dL (8-26) Creatinine 0.8 mg/dL (0.7-1.3) Estimated GFR (Cockcroft-Gault) 99.6 BUN/Creatinine Ratio 10 (6-20) Glucose Level 102 mg/dL (70-99) Calcium Level 9.0 mg/dL (8.5-10.1) Total Bilirubin 0.8 mg/dL (0.2-1.0) Aspartate Amino Transf (AST/SGOT) 15 U/L (15-37) Alanine Aminotransferase (ALT/SGPT) 49 U/L (16-63) Alkaline Phosphatase 85 U/L (46-116) Total Protein 7.2 g/dL (6.4-8.2) Albumin 3.1 g/dL (3.4-5.0) Albumin/Globulin Ratio 0.8 (1.0-1.7) Medications Current Medications Sodium Chloride 1,000 ml @ 1,000 mls/hr 1X ONCE IV Last administered on at 12:33; Start 06/07/18 at 12:15; Stop 06/07/18 at 13:14; Status DC Ondansetron HCl (Zofran) 4 mg PRN Q8HRS PRN IV NAUSEA/VOMITING; Start 06/07/18 at 13:45; Stop 06/08/18 at 13:44; Status DC Morphine Sulfate (Morphine Sulfate) 4 mg PRN Q2HR PRN IV PAIN Last administered on 06/08/18at 06:47; Start 06/07/18 at 13:45; Stop 06/08/18 at 13:44 ; Status DC Potassium Chloride/Water 100 ml @ 100 mls/hr Q1H IV Last administered on at 19:51; Start 06/07/18 at 15:00; Stop 06/07/18 at 18:59; Status DC Multivitamins 10 ml/Thiamine HCl 100 mg/Folic Acid 1 mg/Sodium Chloride 1,011.2 ml @ 100 mls/ hr DAILY IV Last administered on 06/11/18at 09:06; Start at 16:00; Stop 06/11/18 at 19:07; Status DC Lorazepam (Ativan) 2 mg PRN Q1HR PRN IV For CIWA 8-14 Last administered on 06/09at 14:16; Start 06/07/18 at 15:00; Stop 06/10/18 at 11:44; Status DC Lorazepam (Ativan) 4 mg PRN Q1HR PRN IV For CIWA 15 or greater; Start 06/07/18 at 15:00; Stop 06/10/18 at 11:44; Status DC Multivitamins 10 ml/Thiamine HCl 100 mg/Folic Acid 1 mg/Sodium Chloride 1,011.2 ml @ 100 mls/ hr DAILY IV ; Start 06/08/18 at 09:00; Stop 06/12/18 at 19:07; Status UNV Multivitamins (Thera M Plus) 1 tab DAILY PO Last administered on 06/12/18at 08: 48; Start 06/12/18 at 09:00 Folic Acid (Folic Acid) 1 mg DAILY PO Last administered on 06/12/18at 08:48; Start 06/12/18 at 09:00 Lorazepam (Ativan) 4 mg PRN Q1HR PRN PO For CIWA 8-14; Start 06/07/18 at 17:30 ; Stop 06/10/18 at 11:44; Status DC Lorazepam (Ativan) 8 mg PRN Q1HR PRN PO For CIWA 15 or greater; Start 06/07/18 at 17:30; Stop 06/10/18 at 11:44; Status DC Lorazepam (Ativan) 4 mg PRN Q1HR PRN IV For CIWA 15 or greater; Start 06/07/18 at 17:30; Status UNV Haloperidol Lactate (Haldol Inj) 5 mg PRN Q4HRS PRN IVP Hallucinatns,Confusn, Delirium; Start 06/07/18 at 17:30; Stop 06/10/18 at 14:13; Status DC Diphenhydramine HCl (Benadryl) 25 mg PRN Q15MIN PRN IVP EPS symptoms 2'Haldol admin; Start 06/07/18 at 17:30 Clonidine HCl (Catapres) 0.1 mg PRN Q1HR PRN PO SBP > 180 or DBP > 100, MRX3; Start 06/07/18 at 17:30 Lorazepam (Ativan) 2 mg PRN Q15MIN PRN IV ; Start 06/07/18 at 17:30; Status UNV Lorazepam (Ativan) 4 mg PRN Q15MIN PRN IV ; Start 06/07/18 at 17:30; Status UNV Multivitamins 10 ml/Thiamine HCl 100 mg/Folic Acid 1 mg/Sodium Chloride 1,011.2 ml @ 100 mls/ hr DAILY IV ; Start 06/08/18 at 09:00; Stop 06/12/18 at 19:07; Status UNV Enalaprilat (Vasotec Inj) 1.25 mg PRN Q6HRS PRN IVP HYPERTENSION, SEE COMMENTS Last administered on 06/08/18at 20:14; Start 06/08/18 at 09:30 Acetaminophen (Tylenol) 650 mg PRN Q6HRS PRN PO FEVER Last administered on 06/11at 17:18; Start 06/08/18 at 09:45 Ondansetron HCl (Zofran) 4 mg PRN Q6HRS PRN IV NAUSEA/VOMITING; Start 06/08/18 at 09:45 Morphine Sulfate (Morphine Sulfate) 2 mg PRN Q2HR PRN IV MODERATE TO SEVERE PAIN Last administered on 06/11/18at 03:01; Start 06/08/18 at 09:45 Tramadol HCl (Ultram) 50 mg PRN Q6HRS PRN PO MILD TO MODERATE PAIN Last administered on 06/10/18at 19:17; Start 06/08/18 at 09:45 Docusate Sodium (Colace) 100 mg PRN DAILY PRN PO CONSTIPATION (1st Choice); Start 06/08/18 at 09:45 Amino Acids/ Glycerin/ Electrolytes 1,000 ml @ 80 mls/hr [id number] IV Last administered on 06/09/18at 02:21; Start 06/08/18 at 10:30; Stop 06/09/18 at 08:01 ; Status DC Sodium Chloride 1,000 ml @ 100 mls/hr Q10H IV Last administered on 06/11/18at 20:41; Start 06/09/18 at 08:00 Lisinopril (Prinivil) 20 mg DAILY PO Last administered on 06/10/18at 08:40; Start 06/09/18 at 09:00; Stop 06/10/18 at 11:44; Status DC Senna/Docusate Sodium (Senna Plus) 1 tab BID PO Last administered on 06/12/18at 08:48; Start 06/09/18 at 09:00 Docusate Sodium (Colace) 100 mg BID PO Last administered on 06/12/18at 08:48; Start 06/09/18 at 09:00 Magnesium Hydroxide (Milk Of Magnesia) 2,400 mg PRN Q12HR PRN PO CONSTIPATION 3RD CHOICE Last administered on 06/09/18at 12:52; Start 06/09/18 at 08:15 Lactulose (Lactulose) 20 gm PRN Q12HR PRN PO CONSTIPATION 2ND CHOICE; Start at 08:15 Influenza Virus Vaccine (Afluria Trivalent 0524-0336 Syringe) 0.5 ml ONCE ONCE VAX IM Last administered on 06/09/18at 09:08; Start 06/09/18 at 10:00; Stop at 10:01; Status DC Multi-Ingredient Mouthwash/Gargle (Gi Cocktail) 20 ml PRN Q15MIN PRN PO CHEST PAIN Last administered on 06/09/18at 15:58; Start 06/09/18 at 09:15 Bisacodyl (Dulcolax Tab) 10 mg DAILY PO Last administered on 06/12/18at 08:48; Start 06/09/18 at 12:00 Magnesium Hydroxide (Milk Of Magnesia) 2,400 mg PRN DAILY PRN PO CONSTIPATION ( 2nd Choice); Start 06/09/18 at 11:45; Stop 06/10/18 at 19:37; Status DC Magnesium Citrate (Citroma) 296 ml PRN 1X PRN PO CONSTIPATION; Start 06/09/18 at 11:45 Lorazepam (Ativan) 0.5 mg PRN Q8HRS PRN PO ANXIETY / AGITATION; Start 06/10/18 at 11:45 Haloperidol Lactate (Haldol Inj) 2 mg PRN Q4HRS PRN IVP Hallucinatns,Confusn, Delirium; Start 06/10/18 at 14:15 Vitals/I & O Vital Sign - Last 24 Hours 06/11/18 06/11/18 06/11/18 06/11/18 11:00 15:00 19:00 20:00 Temp 98.8 98.3 98.3 98.8 98.3 98.3 Pulse 66 75 86 Resp 18 18 18 B/P (MAP) 112/71 (85) 130/76 (94) 135/80 (98) Pulse Ox 99 100 99 O2 Delivery Room Air Room Air Room Air Room Air 06/11/18 06/12/18 06/12/18 06/12/18 23:00 03:00 07:00 08:00 Temp 98.1 97.7 97.5 98.1 97.7 97.5 Pulse 65 59 61 Resp 18 18 18 B/P (MAP) 123/76 (92) 145/97 (113) 146/83 (104) Pulse Ox 96 98 97 O2 Delivery Room Air Room Air Room Air Room Air Intake and Output 06/11/18 06/11/18 06/12/18 15:00 23:00 07:00 Intake Total 1000 ml Output Total 650 ml Balance 1000 ml -650 ml CARISSA MOORE MD Jun 12, 2018 09:53
[2018-06-12 11:00] VITALS: BP 125/77
[2018-06-12] MEDS: ACETAMINOPHEN 325 MG TABLET. PO PRN ×2 (11:25→18:20)
[2018-06-12 15:00] VITALS: BP 130/55
--- NOTE | 2018-06-12 15:56 | PDOC3 ---
Discharge Summary Date of Admission: Jun 07, 2018 Date of Discharge: Jun 12, 2018 Follow-Up: 1-2 days Admitting Diagnosis comment: Chief Complaint Chief Complaint left frontal hemorrhage with contusion, edema, from fall traumatic possible ETOH abuse AMS, with brain hemorrhage, with some confusion and memory issues constipation HTN hyponatremia encephalopathy plan: OK TO D/C TO [facility]HAB [facility] F/U CT head- There has been slight interval decrease in the edema surrounding the parenchymal hematoma within the left frontal lobe. Interval decrease in size of the subdural hematoma involving the interhemispheric fissure with decrease in the subarachnoid hemorrhage okay to go to SNF/ REHAB fu with neurosx, neuro no sx for now CT repeated today stable PTOT keep BP <150/90 with iv meds prn, low po intake, dc PPN, add NS, dc ativan iv, add po low dose. talked to and daughter at bedside, pt has unsteady gait, will see if can dc rehab PLACEMENT History of Present Illness History of Present Illness ROS: no fever, chills, sob or chest pain headache much better talks slow, walk slow, slightly better today not like normal FAIR po intake Na 127 06/10: agitated , RESOLVED Vitals Vitals Vital Signs Date Time Temp Pulse Resp B/P (MAP) Pulse Ox O2 Delivery O2 Flow Rate FiO2 06/12/18 08:00 Room Air 06/12/18 07:00 97.5 61 18 146/83 (104) 97 97.5 06/11/18 08:00 2.0 Physical Exam Physical Exam talks very slow, not answer some questions, bl strength ok General: Alert, Oriented X3, Cooperative, mild distress, Other (MENTATION SLOW , LESS ENCEPHALOPATHIC) Heart: Regular rate, Normal S1, Normal S2 Lungs: Clear Abdomen: Normal bowel sounds, Soft Extremities: No clubbing, No cyanosis Skin: No rashes FINAL DIAGNOSIS Problems Medical Problems: (1) ETOH abuse Status: Acute (2) Fall Status: Acute Brief Hospital Course Mr. Love is a 58 old [sex] who presented with [ ] Discharge Medications Current Medications Sodium Chloride 1,000 ml @ 1,000 mls/hr 1X ONCE IV Last administered on at 12:33; Start 06/07/18 at 12:15; Stop 06/07/18 at 13:14; Status DC Ondansetron HCl (Zofran) 4 mg PRN Q8HRS PRN IV NAUSEA/VOMITING; Start 06/07/18 at 13:45; Stop 06/08/18 at 13:44; Status DC Morphine Sulfate (Morphine Sulfate) 4 mg PRN Q2HR PRN IV PAIN Last administered on 06/08/18at 06:47; Start 06/07/18 at 13:45; Stop 06/08/18 at 13:44 ; Status DC Potassium Chloride/Water 100 ml @ 100 mls/hr Q1H IV Last administered on at 19:51; Start 06/07/18 at 15:00; Stop 06/07/18 at 18:59; Status DC Multivitamins 10 ml/Thiamine HCl 100 mg/Folic Acid 1 mg/Sodium Chloride 1,011.2 ml @ 100 mls/ hr DAILY IV Last administered on 06/11/18at 09:06; Start at 16:00; Stop 06/11/18 at 19:07; Status DC Lorazepam (Ativan) 2 mg PRN Q1HR PRN IV For CIWA 8-14 Last administered on 06/09at 14:16; Start 06/07/18 at 15:00; Stop 06/10/18 at 11:44; Status DC Lorazepam (Ativan) 4 mg PRN Q1HR PRN IV For CIWA 15 or greater; Start 06/07/18 at 15:00; Stop 06/10/18 at 11:44; Status DC Multivitamins 10 ml/Thiamine HCl 100 mg/Folic Acid 1 mg/Sodium Chloride 1,011.2 ml @ 100 mls/ hr DAILY IV ; Start 06/08/18 at 09:00; Stop 06/12/18 at 19:07; Status UNV Multivitamins (Thera M Plus) 1 tab DAILY PO Last administered on 06/12/18at 08: 48; Start 06/12/18 at 09:00 Folic Acid (Folic Acid) 1 mg DAILY PO Last administered on 06/12/18at 08:48; Start 06/12/18 at 09:00 Lorazepam (Ativan) 4 mg PRN Q1HR PRN PO For CIWA 8-14; Start 06/07/18 at 17:30 ; Stop 06/10/18 at 11:44; Status DC Lorazepam (Ativan) 8 mg PRN Q1HR PRN PO For CIWA 15 or greater; Start 06/07/18 at 17:30; Stop 06/10/18 at 11:44; Status DC Lorazepam (Ativan) 4 mg PRN Q1HR PRN IV For CIWA 15 or greater; Start 06/07/18 at 17:30; Status UNV Haloperidol Lactate (Haldol Inj) 5 mg PRN Q4HRS PRN IVP Hallucinatns,Confusn, Delirium; Start 06/07/18 at 17:30; Stop 06/10/18 at 14:13; Status DC Diphenhydramine HCl (Benadryl) 25 mg PRN Q15MIN PRN IVP EPS symptoms 2'Haldol admin; Start 06/07/18 at 17:30 Clonidine HCl (Catapres) 0.1 mg PRN Q1HR PRN PO SBP > 180 or DBP > 100, MRX3; Start 06/07/18 at 17:30 Lorazepam (Ativan) 2 mg PRN Q15MIN PRN IV ; Start 06/07/18 at 17:30; Status UNV Lorazepam (Ativan) 4 mg PRN Q15MIN PRN IV ; Start 06/07/18 at 17:30; Status UNV Multivitamins 10 ml/Thiamine HCl 100 mg/Folic Acid 1 mg/Sodium Chloride 1,011.2 ml @ 100 mls/ hr DAILY IV ; Start 06/08/18 at 09:00; Stop 06/12/18 at 19:07; Status UNV Enalaprilat (Vasotec Inj) 1.25 mg PRN Q6HRS PRN IVP HYPERTENSION, SEE COMMENTS Last administered on 06/08/18at 20:14; Start 06/08/18 at 09:30 Acetaminophen (Tylenol) 650 mg PRN Q6HRS PRN PO FEVER Last administered on 06/12at 11:25; Start 06/08/18 at 09:45 Ondansetron HCl (Zofran) 4 mg PRN Q6HRS PRN IV NAUSEA/VOMITING; Start 06/08/18 at 09:45 Morphine Sulfate (Morphine Sulfate) 2 mg PRN Q2HR PRN IV MODERATE TO SEVERE PAIN Last administered on 06/11/18at 03:01; Start 06/08/18 at 09:45 Tramadol HCl (Ultram) 50 mg PRN Q6HRS PRN PO MILD TO MODERATE PAIN Last administered on 06/10/18at 19:17; Start 06/08/18 at 09:45 Docusate Sodium (Colace) 100 mg PRN DAILY PRN PO CONSTIPATION (1st Choice); Start 06/08/18 at 09:45 Amino Acids/ Glycerin/ Electrolytes 1,000 ml @ 80 mls/hr [id number] IV Last administered on 06/09/18at 02:21; Start 06/08/18 at 10:30; Stop 06/09/18 at 08:01 ; Status DC Sodium Chloride 1,000 ml @ 100 mls/hr Q10H IV Last administered on 06/11/18at 20:41; Start 06/09/18 at 08:00; Stop 06/12/18 at 12:58; Status DC Lisinopril (Prinivil) 20 mg DAILY PO Last administered on 06/10/18at 08:40; Start 06/09/18 at 09:00; Stop 06/10/18 at 11:44; Status DC Senna/Docusate Sodium (Senna Plus) 1 tab BID PO Last administered on 06/12/18 08:48; Start 06/09/18 at 09:00 Docusate Sodium (Colace) 100 mg BID PO Last administered on 06/12/18at 08:48; Start 06/09/18 at 09:00 Magnesium Hydroxide (Milk Of Magnesia) 2,400 mg PRN Q12HR PRN PO CONSTIPATION 3RD CHOICE Last administered on 06/09/18at 12:52; Start 06/09/18 at 08:15 Lactulose (Lactulose) 20 gm PRN Q12HR PRN PO CONSTIPATION 2ND CHOICE; Start at 08:15 Influenza Virus Vaccine (Afluria Trivalent [id number] Syringe) 0.5 ml ONCE ONCE VAX IM Last administered on 06/09/18at 09:08; Start 06/09/18 at 10:00; Stop at 10:01; Status DC Multi-Ingredient Mouthwash/Gargle (Gi Cocktail) 20 ml PRN Q15MIN PRN PO CHEST PAIN Last administered on 06/09/18at 15:58; Start 06/09/18 at 09:15 Bisacodyl (Dulcolax Tab) 10 mg DAILY PO Last administered on 06/12/18at 08:48; Start 06/09/18 at 12:00 Magnesium Hydroxide (Milk Of Magnesia) 2,400 mg PRN DAILY PRN PO CONSTIPATION ( 2nd Choice); Start 06/09/18 at 11:45; Stop 06/10/18 at 19:37; Status DC Magnesium Citrate (Citroma) 296 ml PRN 1X PRN PO CONSTIPATION, UNREL BY OTHERS ; Start 06/09/18 at 11:45 Lorazepam (Ativan) 0.5 mg PRN Q8HRS PRN PO ANXIETY / AGITATION; Start 06/10/18 at 11:45 Haloperidol Lactate (Haldol Inj) 2 mg PRN Q4HRS PRN IVP Hallucinatns,Confusn, Delirium; Start 06/10/18 at 14:15 Vital Signs Vital Signs Date Time Temp Pulse Resp B/P (MAP) Pulse Ox O2 Delivery O2 Flow Rate FiO2 06/12/18 15:00 97.9 68 16 130/55 (80) 96 Room Air 97.9 06/11/18 08:00 2.0 Labs Laboratory Tests Test 06/11/18 08:40 06/12/18 03:10 White Blood Count 9.2 x10^3/uL (4.0-11.0) Red Blood Count 4.22 x10^6/uL (4.30-5.70) Hemoglobin 13.8 g/dL (13.0-17.5) Hematocrit 38.3 % (39.0-53.0) Mean Corpuscular Volume 91 fL (79-100) Mean Corpuscular Hemoglobin 33 pg (25-35) Mean Corpuscular Hemoglobin Concent 36 g/dL (31-37) Red Cell Distribution Width 13.5 % (11.5-14.5) Platelet Count 208 x10^3/uL (140-400) Neutrophils (%) (Auto) 83 % (31-73) Lymphocytes (%) (Auto) 9 % (24-48) Monocytes (%) (Auto) 8 % (0-9) Eosinophils (%) (Auto) 0 % (0-3) Basophils (%) (Auto) 0 % (0-3) Neutrophils # (Auto) 7.6 x10^3uL (1.8-7.7) Lymphocytes # (Auto) 0.8 x10^3/uL (1.0-4.8) Monocytes # (Auto) 0.7 x10^3/uL (0.0-1.1) Eosinophils # (Auto) 0.0 x10^3/uL (0.0-0.7) Basophils # (Auto) 0.0 x10^3/uL (0.0-0.2) Sodium Level 135 mmol/L (136-145) 136 mmol/L (136-145) Potassium Level 3.6 mmol/L (3.5-5.1) 3.5 mmol/L (3.5-5.1) Chloride Level 101 mmol/L (98-107) 101 mmol/L (98-107) Carbon Dioxide Level 25 mmol/L (21-32) 25 mmol/L (21-32) Anion Gap 9 (6-14) 10 (6-14) Blood Urea Nitrogen 11 mg/dL (8-26) 8 mg/dL (8-26) Creatinine 0.9 mg/dL (0.7-1.3) 0.8 mg/dL (0.7-1.3) Estimated GFR (Cockcroft-Gault) 87.0 99.6 Glucose Level 134 mg/dL (70-99) 102 mg/dL (70-99) Calcium Level 8.3 mg/dL (8.5-10.1) 9.0 mg/dL (8.5-10.1) BUN/Creatinine Ratio 10 (6-20) Total Bilirubin 0.8 mg/dL (0.2-1.0) Aspartate Amino Transf (AST/SGOT) 15 U/L (15-37) Alanine Aminotransferase (ALT/SGPT) 49 U/L (16-63) Alkaline Phosphatase 85 U/L (46-116) Total Protein 7.2 g/dL (6.4-8.2) Albumin 3.1 g/dL (3.4-5.0) Albumin/Globulin Ratio 0.8 (1.0-1.7) Laboratory Tests Test 06/12/18 03:10 Sodium Level 136 mmol/L (136-145) Potassium Level 3.5 mmol/L (3.5-5.1) Chloride Level 101 mmol/L (98-107) Carbon Dioxide Level 25 mmol/L (21-32) Anion Gap 10 (6-14) Blood Urea Nitrogen 8 mg/dL (8-26) Creatinine 0.8 mg/dL (0.7-1.3) Estimated GFR (Cockcroft-Gault) 99.6 BUN/Creatinine Ratio 10 (6-20) Glucose Level 102 mg/dL (70-99) Calcium Level 9.0 mg/dL (8.5-10.1) Total Bilirubin 0.8 mg/dL (0.2-1.0) Aspartate Amino Transf (AST/SGOT) 15 U/L (15-37) Alanine Aminotransferase (ALT/SGPT) 49 U/L (16-63) Alkaline Phosphatase 85 U/L (46-116) Total Protein 7.2 g/dL (6.4-8.2) Albumin 3.1 g/dL (3.4-5.0) Albumin/Globulin Ratio 0.8 (1.0-1.7) Allergies Allergies Coded Allergies Type Severity Reaction Last Updated Verified No Known Drug Allergies 06/07/18 No Disposition/Orders: Other (TO [facility]) Patient Instructions D/C PLANNING 33 MIN CARISSA MOORE MD Jun 12, 2018 15:56
--- NOTE | 2018-06-12 15:57 | DISCH ---
DISCHARGE DISCHARGE INFORMATION: FINAL DIAGNOSIS Problems Medical Problems: (1) ETOH abuse Status: Acute (2) Fall Status: Acute CONDITION ON DISCHARGE: Guarded CODE STATUS: Code Status: Full [facility]FP: SNF STAY <30 DAYS: Yes HOSPICE: HOSPICE: No HOSPICE EVAL & TREAT: No POST DISCHARGE ORDERS: ACTIVITY ORDERS: Activity as tolerated BATHING ORDERS: Shower-keep dressing dry DIET AFTER DISCHARGE: Cardiac CHECKS AFTER DISCHARGE: CHECKS AFTER DISCHARGE: Check blood press - daily TREATMENT/EQUIPMENT ORDERS: Physical Therapy For: Evalulation/Treatment Occupational Therapy For: Evaluation/Treatment Speech Language Pathology For: Evaluation/Treatment CARISSA MOORE MD Jun 12, 2018 15:57
[2018-06-12] MEDS ORDERED: FOLI1TAB16 PO (16:02)
[2018-06-12] MEDS ORDERED: ACET325T9 PO (16:02)
[2018-06-12] MEDS ORDERED: SENN-22 PO (16:02)
[2018-06-12] MEDS ORDERED: LORA0.5T96 PO (16:02)
[2018-06-12] MEDS ORDERED: CLON0.1T12 PO (16:02)
[2018-06-12] MEDS ORDERED: DOCU-109 PO (16:02)
[2018-06-12] MEDS ORDERED: MULT1TAB90 PO (16:02)
[2018-06-12] MEDS ORDERED: THIA100T8 PO (16:03)
[2018-06-12 19:00] VITALS: BP 132/93
[2018-06-12 23:00] VITALS: BP 156/103
[2018-06-13] MEDS: ACETAMINOPHEN 325 MG TABLET. PO PRN ×3 (00:31→16:08)
[2018-06-13 07:00] VITALS: BP 117/77
[2018-06-13] MEDS: MULTIVITAMIN with MINERAL TABLET. PO SCH (08:26)
[2018-06-13] MEDS: FOLIC ACID 1 MG TABLET. PO SCH (08:26)
[2018-06-13] MEDS: SENNOSIDES/DOCUSATE 8.6/50MG TABLET. PO SCH ×2 (08:27→21:00)
[2018-06-13] MEDS: DOCUSATE SODIUM 100 MG CAPSULE. PO SCH ×2 (08:27→21:00)
[2018-06-13] MEDS: BISACODYL 5 MG TABLET.DR. PO SCH (08:27)
--- NOTE | 2018-06-13 09:33 | PDOC ---
PROGRESS NOTES Subjective Subjective No new complaints.He is eager to go home.He still admits some headache. Objective Objective Vital Signs Date Time Temp Pulse Resp B/P (MAP) Pulse Ox O2 Delivery O2 Flow Rate FiO2 06/13/18 08:00 Room Air 06/13/18 07:00 98.1 65 16 117/77 (90) 97 98.1 06/11/18 08:00 2.0 Intake and Output 06/13/18 07:00 # Voids 9 # Bowel Movements 2 Physical Exam Physical Exam He is awake ,talking better and sitting in bedside chair and he correctly identified today's date and day of week bu did not identify month and year correctly.He continues to do well with his mobility and he slept better last night. Assessment Assessment Problems Medical Problems: (1) ETOH abuse Status: Acute (2) Fall Status: Acute Plan Plan of Care To see about SNF screen as his health insurance denies acute rehab unit stay. Comment Review of Relevant I have reviewed the following items ranjan (where applicable) has been applied. Labs Laboratory Tests Test 06/12/18 03:10 Sodium Level 136 mmol/L (136-145) Potassium Level 3.5 mmol/L (3.5-5.1) Chloride Level 101 mmol/L (98-107) Carbon Dioxide Level 25 mmol/L (21-32) Anion Gap 10 (6-14) Blood Urea Nitrogen 8 mg/dL (8-26) Creatinine 0.8 mg/dL (0.7-1.3) Estimated GFR (Cockcroft-Gault) 99.6 BUN/Creatinine Ratio 10 (6-20) Glucose Level 102 mg/dL (70-99) Calcium Level 9.0 mg/dL (8.5-10.1) Total Bilirubin 0.8 mg/dL (0.2-1.0) Aspartate Amino Transf (AST/SGOT) 15 U/L (15-37) Alanine Aminotransferase (ALT/SGPT) 49 U/L (16-63) Alkaline Phosphatase 85 U/L (46-116) Total Protein 7.2 g/dL (6.4-8.2) Albumin 3.1 g/dL (3.4-5.0) Albumin/Globulin Ratio 0.8 (1.0-1.7) Medications Current Medications Sodium Chloride 1,000 ml @ 1,000 mls/hr 1X ONCE IV Last administered on at 12:33; Start 06/07/18 at 12:15; Stop 06/07/18 at 13:14; Status DC Ondansetron HCl (Zofran) 4 mg PRN Q8HRS PRN IV NAUSEA/VOMITING; Start 06/07/18 at 13:45; Stop 06/08/18 at 13:44; Status DC Morphine Sulfate (Morphine Sulfate) 4 mg PRN Q2HR PRN IV PAIN Last administered on 06/08/18at 06:47; Start 06/07/18 at 13:45; Stop 06/08/18 at 13:44 ; Status DC Potassium Chloride/Water 100 ml @ 100 mls/hr Q1H IV Last administered on at 19:51; Start 06/07/18 at 15:00; Stop 06/07/18 at 18:59; Status DC Multivitamins 10 ml/Thiamine HCl 100 mg/Folic Acid 1 mg/Sodium Chloride 1,011.2 ml @ 100 mls/ hr DAILY IV Last administered on 06/11/18at 09:06; Start at 16:00; Stop 06/11/18 at 19:07; Status DC Lorazepam (Ativan) 2 mg PRN Q1HR PRN IV For CIWA 8-14 Last administered on 06/09at 14:16; Start 06/07/18 at 15:00; Stop 06/10/18 at 11:44; Status DC Lorazepam (Ativan) 4 mg PRN Q1HR PRN IV For CIWA 15 or greater; Start 06/07/18 at 15:00; Stop 06/10/18 at 11:44; Status DC Multivitamins 10 ml/Thiamine HCl 100 mg/Folic Acid 1 mg/Sodium Chloride 1,011.2 ml @ 100 mls/ hr DAILY IV ; Start 06/08/18 at 09:00; Stop 06/12/18 at 19:07; Status UNV Multivitamins (Thera M Plus) 1 tab DAILY PO Last administered on 06/13/18at 08: 26; Start 06/12/18 at 09:00 Folic Acid (Folic Acid) 1 mg DAILY PO Last administered on 06/13/18at 08:26; Start 06/12/18 at 09:00 Lorazepam (Ativan) 4 mg PRN Q1HR PRN PO For CIWA 8-14; Start 06/07/18 at 17:30 ; Stop 06/10/18 at 11:44; Status DC Lorazepam (Ativan) 8 mg PRN Q1HR PRN PO For CIWA 15 or greater; Start 06/07/18 at 17:30; Stop 06/10/18 at 11:44; Status DC Lorazepam (Ativan) 4 mg PRN Q1HR PRN IV For CIWA 15 or greater; Start 06/07/18 at 17:30; Status UNV Haloperidol Lactate (Haldol Inj) 5 mg PRN Q4HRS PRN IVP Hallucinatns,Confusn, Delirium; Start 06/07/18 at 17:30; Stop 06/10/18 at 14:13; Status DC Diphenhydramine HCl (Benadryl) 25 mg PRN Q15MIN PRN IVP EPS symptoms 2'Haldol admin; Start 06/07/18 at 17:30 Clonidine HCl (Catapres) 0.1 mg PRN Q1HR PRN PO SBP > 180 or DBP > 100, MRX3; Start 06/07/18 at 17:30 Lorazepam (Ativan) 2 mg PRN Q15MIN PRN IV ; Start 06/07/18 at 17:30; Status UNV Lorazepam (Ativan) 4 mg PRN Q15MIN PRN IV ; Start 06/07/18 at 17:30; Status UNV Multivitamins 10 ml/Thiamine HCl 100 mg/Folic Acid 1 mg/Sodium Chloride 1,011.2 ml @ 100 mls/ hr DAILY IV ; Start 06/08/18 at 09:00; Stop 06/12/18 at 19:07; Status UNV Enalaprilat (Vasotec Inj) 1.25 mg PRN Q6HRS PRN IVP HYPERTENSION, SEE COMMENTS Last administered on 06/08/18at 20:14; Start 06/08/18 at 09:30 Acetaminophen (Tylenol) 650 mg PRN Q6HRS PRN PO FEVER Last administered on 06/13at 08:26; Start 06/08/18 at 09:45 Ondansetron HCl (Zofran) 4 mg PRN Q6HRS PRN IV NAUSEA/VOMITING; Start 06/08/18 at 09:45 Morphine Sulfate (Morphine Sulfate) 2 mg PRN Q2HR PRN IV MODERATE TO SEVERE PAIN Last administered on 06/11/18at 03:01; Start 06/08/18 at 09:45 Tramadol HCl (Ultram) 50 mg PRN Q6HRS PRN PO MILD TO MODERATE PAIN Last administered on 06/10/18at 19:17; Start 06/08/18 at 09:45 Docusate Sodium (Colace) 100 mg PRN DAILY PRN PO CONSTIPATION (1st Choice); Start 06/08/18 at 09:45 Amino Acids/ Glycerin/ Electrolytes 1,000 ml @ 80 mls/hr [id number] IV Last administered on 06/09/18at 02:21; Start 06/08/18 at 10:30; Stop 06/09/18 at 08:01 ; Status DC Sodium Chloride 1,000 ml @ 100 mls/hr Q10H IV Last administered on 06/11/18at 20:41; Start 06/09/18 at 08:00; Stop 06/12/18 at 12:58; Status DC Lisinopril (Prinivil) 20 mg DAILY PO Last administered on 06/10/18at 08:40; Start 06/09/18 at 09:00; Stop 06/10/18 at 11:44; Status DC Senna/Docusate Sodium (Senna Plus) 1 tab BID PO Last administered on 06/12/18at 08:48; Start 06/09/18 at 09:00 Docusate Sodium (Colace) 100 mg BID PO Last administered on 06/12/18at 08:48; Start 06/09/18 at 09:00 Magnesium Hydroxide (Milk Of Magnesia) 2,400 mg PRN Q12HR PRN PO CONSTIPATION 3RD CHOICE Last administered on 06/09/18at 12:52; Start 06/09/18 at 08:15 Lactulose (Lactulose) 20 gm PRN Q12HR PRN PO CONSTIPATION 2ND CHOICE; Start at 08:15 Influenza Virus Vaccine (Afluria Trivalent [id number] Syringe) 0.5 ml ONCE ONCE VAX IM Last administered on 06/09/18at 09:08; Start 06/09/18 at 10:00; Stop at 10:01; Status DC Multi-Ingredient Mouthwash/Gargle (Gi Cocktail) 20 ml PRN Q15MIN PRN PO CHEST PAIN Last administered on 06/09/18at 15:58; Start 06/09/18 at 09:15 Bisacodyl (Dulcolax Tab) 10 mg DAILY PO Last administered on 06/12/18at 08:48; Start 06/09/18 at 12:00 Magnesium Hydroxide (Milk Of Magnesia) 2,400 mg PRN DAILY PRN PO CONSTIPATION ( 2nd Choice); Start 06/09/18 at 11:45; Stop 06/10/18 at 19:37; Status DC Magnesium Citrate (Citroma) 296 ml PRN 1X PRN PO CONSTIPATION, UNREL BY OTHERS ; Start 06/09/18 at 11:45 Lorazepam (Ativan) 0.5 mg PRN Q8HRS PRN PO ANXIETY / AGITATION; Start 06/10/18 at 11:45 Haloperidol Lactate (Haldol Inj) 2 mg PRN Q4HRS PRN IVP Hallucinatns,Confusn, Delirium; Start 06/10/18 at 14:15 Vitals/I & O Vital Sign - Last 24 Hours 06/12/18 06/12/18 06/12/18 06/12/18 11:00 15:00 19:00 20:00 Temp 98.1 97.9 98.1 98.1 97.9 98.1 Pulse 61 68 83 Resp 18 16 16 B/P (MAP) 125/77 (93) 130/55 (80) 132/93 (106) Pulse Ox 98 96 97 O2 Delivery Room Air Room Air Room Air Room Air 06/12/18 06/13/18 06/13/18 23:00 07:00 08:00 Temp 97.7 98.1 97.7 98.1 Pulse 65 65 Resp 16 16 B/P (MAP) 156/103 (120) 117/77 (90) Pulse Ox 97 97 O2 Delivery Room Air Room Air Room Air JIMMY DAVIS MD Jun 13, 2018 09:33
[2018-06-13 11:00] VITALS: BP 131/76
--- NOTE | 2018-06-13 12:24 | PDOC ---
PROGRESS NOTES Assessment Problems Medical Problems: (1) ETOH abuse Status: Acute (2) Fall Status: Acute Large left frontal hematoma with surrounding edema. Metabolic encephalopathy. Left parasagiital SDH. Headaches. Fall. Alcoholism. Degenerative cervical spine disease. Plan BP control, keep less than 150/85 mmHg. Avoid anticoagulant and antiplatelet agents this time. Treat medical diseases. Awaiting transfer to detention unit Subjective No complaints Objective Vital Signs Date Time Temp Pulse Resp B/P (MAP) Pulse Ox O2 Delivery O2 Flow Rate FiO2 06/13/18 11:00 98.2 65 16 131/76 (94) 96 Room Air 98.2 Intake and Output 06/13/18 07:00 # Voids 9 # Bowel Movements 2 PHYSICAL EXAM Alert. Oriented to place and person, not date. PERRL. EOMI. CN: no focal findings. Muscle tone: normal. Muscle strength: 4/5 on right, 5-/5 on left DTR: 2+ Plantar reflex: flexor Gait: not examined in bed. Sensory exam: no abnormal findings. No cerebellar signs elicited. Review of Relevant I have reviewed the following items ranjan (where applicable) has been applied. Labs Laboratory Tests Test 06/12/18 03:10 Sodium Level 136 mmol/L (136-145) Potassium Level 3.5 mmol/L (3.5-5.1) Chloride Level 101 mmol/L (98-107) Carbon Dioxide Level 25 mmol/L (21-32) Anion Gap 10 (6-14) Blood Urea Nitrogen 8 mg/dL (8-26) Creatinine 0.8 mg/dL (0.7-1.3) Estimated GFR (Cockcroft-Gault) 99.6 BUN/Creatinine Ratio 10 (6-20) Glucose Level 102 mg/dL (70-99) Calcium Level 9.0 mg/dL (8.5-10.1) Total Bilirubin 0.8 mg/dL (0.2-1.0) Aspartate Amino Transf (AST/SGOT) 15 U/L (15-37) Alanine Aminotransferase (ALT/SGPT) 49 U/L (16-63) Alkaline Phosphatase 85 U/L (46-116) Total Protein 7.2 g/dL (6.4-8.2) Albumin 3.1 g/dL (3.4-5.0) Albumin/Globulin Ratio 0.8 (1.0-1.7) Medications Current Medications Sodium Chloride 1,000 ml @ 1,000 mls/hr 1X ONCE IV Last administered on at 12:33; Start 06/07/18 at 12:15; Stop 06/07/18 at 13:14; Status DC Ondansetron HCl (Zofran) 4 mg PRN Q8HRS PRN IV NAUSEA/VOMITING; Start 06/07/18 at 13:45; Stop 06/08/18 at 13:44; Status DC Morphine Sulfate (Morphine Sulfate) 4 mg PRN Q2HR PRN IV PAIN Last administered on 06/08/18at 06:47; Start 06/07/18 at 13:45; Stop 06/08/18 at 13:44 ; Status DC Potassium Chloride/Water 100 ml @ 100 mls/hr Q1H IV Last administered on at 19:51; Start 06/07/18 at 15:00; Stop 06/07/18 at 18:59; Status DC Multivitamins 10 ml/Thiamine HCl 100 mg/Folic Acid 1 mg/Sodium Chloride 1,011.2 ml @ 100 mls/ hr DAILY IV Last administered on 06/11/18at 09:06; Start at 16:00; Stop 06/11/18 at 19:07; Status DC Lorazepam (Ativan) 2 mg PRN Q1HR PRN IV For CIWA 8-14 Last administered on 06/09at 14:16; Start 06/07/18 at 15:00; Stop 06/10/18 at 11:44; Status DC Lorazepam (Ativan) 4 mg PRN Q1HR PRN IV For CIWA 15 or greater; Start 06/07/18 at 15:00; Stop 06/10/18 at 11:44; Status DC Multivitamins 10 ml/Thiamine HCl 100 mg/Folic Acid 1 mg/Sodium Chloride 1,011.2 ml @ 100 mls/ hr DAILY IV ; Start 06/08/18 at 09:00; Stop 06/12/18 at 19:07; Status UNV Multivitamins (Thera M Plus) 1 tab DAILY PO Last administered on 06/13/18at 08: 26; Start 06/12/18 at 09:00 Folic Acid (Folic Acid) 1 mg DAILY PO Last administered on 06/13/18at 08:26; Start 06/12/18 at 09:00 Lorazepam (Ativan) 4 mg PRN Q1HR PRN PO For CIWA 8-14; Start 06/07/18 at 17:30 ; Stop 06/10/18 at 11:44; Status DC Lorazepam (Ativan) 8 mg PRN Q1HR PRN PO For CIWA 15 or greater; Start 06/07/18 at 17:30; Stop 06/10/18 at 11:44; Status DC Lorazepam (Ativan) 4 mg PRN Q1HR PRN IV For CIWA 15 or greater; Start 06/07/18 at 17:30; Status UNV Haloperidol Lactate (Haldol Inj) 5 mg PRN Q4HRS PRN IVP Hallucinatns,Confusn, Delirium; Start 06/07/18 at 17:30; Stop 06/10/18 at 14:13; Status DC Diphenhydramine HCl (Benadryl) 25 mg PRN Q15MIN PRN IVP EPS symptoms 2'Haldol admin; Start 06/07/18 at 17:30 Clonidine HCl (Catapres) 0.1 mg PRN Q1HR PRN PO SBP > 180 or DBP > 100, MRX3; Start 06/07/18 at 17:30 Lorazepam (Ativan) 2 mg PRN Q15MIN PRN IV ; Start 06/07/18 at 17:30; Status UNV Lorazepam (Ativan) 4 mg PRN Q15MIN PRN IV ; Start 06/07/18 at 17:30; Status UNV Multivitamins 10 ml/Thiamine HCl 100 mg/Folic Acid 1 mg/Sodium Chloride 1,011.2 ml @ 100 mls/ hr DAILY IV ; Start 06/08/18 at 09:00; Stop 06/12/18 at 19:07; Status UNV Enalaprilat (Vasotec Inj) 1.25 mg PRN Q6HRS PRN IVP HYPERTENSION, SEE COMMENTS Last administered on 06/08/18at 20:14; Start 06/08/18 at 09:30 Acetaminophen (Tylenol) 650 mg PRN Q6HRS PRN PO FEVER Last administered on 06/13at 08:26; Start 06/08/18 at 09:45 Ondansetron HCl (Zofran) 4 mg PRN Q6HRS PRN IV NAUSEA/VOMITING; Start 06/08/18 at 09:45 Morphine Sulfate (Morphine Sulfate) 2 mg PRN Q2HR PRN IV MODERATE TO SEVERE PAIN Last administered on 06/11/18at 03:01; Start 06/08/18 at 09:45 Tramadol HCl (Ultram) 50 mg PRN Q6HRS PRN PO MILD TO MODERATE PAIN Last administered on 06/10/18at 19:17; Start 06/08/18 at 09:45 Docusate Sodium (Colace) 100 mg PRN DAILY PRN PO CONSTIPATION (1st Choice); Start 06/08/18 at 09:45 Amino Acids/ Glycerin/ Electrolytes 1,000 ml @ 80 mls/hr [id number] IV Last administered on 06/09/18at 02:21; Start 06/08/18 at 10:30; Stop 06/09/18 at 08:01 ; Status DC Sodium Chloride 1,000 ml @ 100 mls/hr Q10H IV Last administered on 06/11/18at 20:41; Start 06/09/18 at 08:00; Stop 06/12/18 at 12:58; Status DC Lisinopril (Prinivil) 20 mg DAILY PO Last administered on 06/10/18at 08:40; Start 06/09/18 at 09:00; Stop 06/10/18 at 11:44; Status DC Senna/Docusate Sodium (Senna Plus) 1 tab BID PO Last administered on 06/12/18at 08:48; Start 06/09/18 at 09:00 Docusate Sodium (Colace) 100 mg BID PO Last administered on 06/12/18at 08:48; Start 06/09/18 at 09:00 Magnesium Hydroxide (Milk Of Magnesia) 2,400 mg PRN Q12HR PRN PO CONSTIPATION 3RD CHOICE Last administered on 06/09/18at 12:52; Start 06/09/18 at 08:15 Lactulose (Lactulose) 20 gm PRN Q12HR PRN PO CONSTIPATION 2ND CHOICE; Start at 08:15 Influenza Virus Vaccine (Afluria Trivalent [id number] Syringe) 0.5 ml ONCE ONCE VAX IM Last administered on 06/09/18at 09:08; Start 06/09/18 at 10:00; Stop at 10:01; Status DC Multi-Ingredient Mouthwash/Gargle (Gi Cocktail) 20 ml PRN Q15MIN PRN PO CHEST PAIN Last administered on 06/09/18at 15:58; Start 06/09/18 at 09:15 Bisacodyl (Dulcolax Tab) 10 mg DAILY PO Last administered on 06/12/18at 08:48; Start 06/09/18 at 12:00 Magnesium Hydroxide (Milk Of Magnesia) 2,400 mg PRN DAILY PRN PO CONSTIPATION ( 2nd Choice); Start 06/09/18 at 11:45; Stop 06/10/18 at 19:37; Status DC Magnesium Citrate (Citroma) 296 ml PRN 1X PRN PO CONSTIPATION, UNREL BY OTHERS ; Start 06/09/18 at 11:45 Lorazepam (Ativan) 0.5 mg PRN Q8HRS PRN PO ANXIETY / AGITATION; Start 06/10/18 at 11:45 Haloperidol Lactate (Haldol Inj) 2 mg PRN Q4HRS PRN IVP Hallucinatns,Confusn, Delirium; Start 06/10/18 at 14:15 Vitals/I & O Vital Sign - Last 24 Hours 06/12/18 06/12/18 06/12/18 06/12/18 15:00 19:00 20:00 23:00 Temp 97.9 98.1 97.7 97.9 98.1 97.7 Pulse 68 83 65 Resp 16 16 16 B/P (MAP) 130/55 (80) 132/93 (106) 156/103 (120) Pulse Ox 96 97 97 O2 Delivery Room Air Room Air Room Air Room Air 06/13/18 06/13/18 06/13/18 07:00 08:00 11:00 Temp 98.1 98.2 98.1 98.2 Pulse 65 65 Resp 16 16 B/P (MAP) 117/77 (90) 131/76 (94) Pulse Ox 97 96 O2 Delivery Room Air Room Air Room Air GUIDO TAMAYO MD Jun 13, 2018 12:24
[2018-06-13 15:00] VITALS: BP 108/85
--- NOTE | 2018-06-13 15:07 | PDOC ---
PROGRESS NOTES Chief Complaint Chief Complaint Left frontal hemorrhage with contusion, edema, from fall traumatic ETOH abuse AMS, with brain hemorrhage, with some confusion and memory issues constipation HTN hyponatremia encephalopathy History of Present Illness History of Present Illness pt seen and examined, pt was slow to response to questions, prob. approaching baseline, smelled of Ketones dw RN Vitals Vitals Vital Signs Date Time Temp Pulse Resp B/P (MAP) Pulse Ox O2 Delivery O2 Flow Rate FiO2 06/13/18 11:00 98.2 65 16 131/76 (94) 96 Room Air 98.2 Physical Exam Physical Exam talks very slow, not answer some questions, bl strength ok General: Alert, Oriented X3, Cooperative, mild distress, Other (MENTATION SLOW , ENCEPHALOPATHIC) Heart: Regular rate, Normal S1, Normal S2 Lungs: Clear Abdomen: Soft Extremities: No clubbing, No cyanosis Skin: No rashes, No breakdown Review of Systems Review of Systems CO headache, however reduced from yesterday (06/12/2018) CO fatigue Assessment and Plan Assessmemt and Plan Problems Medical Problems: (1) ETOH abuse Status: Acute (2) Fall Status: Acute Left frontal hemorrhage with contusion, edema, from fall traumatic ETOH abuse AMS, with brain hemorrhage, with some confusion and memory issues constipation HTN hyponatremia encephalopathy Plan: Discharge to rehab home med. PT/OT F/U w/ neuro. Comment Review of Relevant I have reviewed the following items ranjan (where applicable) has been applied. Labs Laboratory Tests Test 06/12/18 03:10 Sodium Level 136 mmol/L (136-145) Potassium Level 3.5 mmol/L (3.5-5.1) Chloride Level 101 mmol/L (98-107) Carbon Dioxide Level 25 mmol/L (21-32) Anion Gap 10 (6-14) Blood Urea Nitrogen 8 mg/dL (8-26) Creatinine 0.8 mg/dL (0.7-1.3) Estimated GFR (Cockcroft-Gault) 99.6 BUN/Creatinine Ratio 10 (6-20) Glucose Level 102 mg/dL (70-99) Calcium Level 9.0 mg/dL (8.5-10.1) Total Bilirubin 0.8 mg/dL (0.2-1.0) Aspartate Amino Transf (AST/SGOT) 15 U/L (15-37) Alanine Aminotransferase (ALT/SGPT) 49 U/L (16-63) Alkaline Phosphatase 85 U/L (46-116) Total Protein 7.2 g/dL (6.4-8.2) Albumin 3.1 g/dL (3.4-5.0) Albumin/Globulin Ratio 0.8 (1.0-1.7) Medications Current Medications Sodium Chloride 1,000 ml @ 1,000 mls/hr 1X ONCE IV Last administered on at 12:33; Start 06/07/18 at 12:15; Stop 06/07/18 at 13:14; Status DC Ondansetron HCl (Zofran) 4 mg PRN Q8HRS PRN IV NAUSEA/VOMITING; Start 06/07/18 at 13:45; Stop 06/08/18 at 13:44; Status DC Morphine Sulfate (Morphine Sulfate) 4 mg PRN Q2HR PRN IV PAIN Last administered on 06/08/18at 06:47; Start 06/07/18 at 13:45; Stop 06/08/18 at 13:44 ; Status DC Potassium Chloride/Water 100 ml @ 100 mls/hr Q1H IV Last administered on at 19:51; Start 06/07/18 at 15:00; Stop 06/07/18 at 18:59; Status DC Multivitamins 10 ml/Thiamine HCl 100 mg/Folic Acid 1 mg/Sodium Chloride 1,011.2 ml @ 100 mls/ hr DAILY IV Last administered on 06/11/18at 09:06; Start at 16:00; Stop 06/11/18 at 19:07; Status DC Lorazepam (Ativan) 2 mg PRN Q1HR PRN IV For CIWA 8-14 Last administered on 06/09at 14:16; Start 06/07/18 at 15:00; Stop 06/10/18 at 11:44; Status DC Lorazepam (Ativan) 4 mg PRN Q1HR PRN IV For CIWA 15 or greater; Start 06/07/18 at 15:00; Stop 06/10/18 at 11:44; Status DC Multivitamins 10 ml/Thiamine HCl 100 mg/Folic Acid 1 mg/Sodium Chloride 1,011.2 ml @ 100 mls/ hr DAILY IV ; Start 06/08/18 at 09:00; Stop 06/12/18 at 19:07; Status UNV Multivitamins (Thera M Plus) 1 tab DAILY PO Last administered on 06/13/18at 08: 26; Start 06/12/18 at 09:00 Folic Acid (Folic Acid) 1 mg DAILY PO Last administered on 06/13/18at 08:26; Start 06/12/18 at 09:00 Lorazepam (Ativan) 4 mg PRN Q1HR PRN PO For CIWA 8-14; Start 06/07/18 at 17:30 ; Stop 06/10/18 at 11:44; Status DC Lorazepam (Ativan) 8 mg PRN Q1HR PRN PO For CIWA 15 or greater; Start 06/07/18 at 17:30; Stop 06/10/18 at 11:44; Status DC Lorazepam (Ativan) 4 mg PRN Q1HR PRN IV For CIWA 15 or greater; Start 06/07/18 at 17:30; Status UNV Haloperidol Lactate (Haldol Inj) 5 mg PRN Q4HRS PRN IVP Hallucinatns,Confusn, Delirium; Start 06/07/18 at 17:30; Stop 06/10/18 at 14:13; Status DC Diphenhydramine HCl (Benadryl) 25 mg PRN Q15MIN PRN IVP EPS symptoms 2'Haldol admin; Start 06/07/18 at 17:30 Clonidine HCl (Catapres) 0.1 mg PRN Q1HR PRN PO SBP > 180 or DBP > 100, MRX3; Start 06/07/18 at 17:30 Lorazepam (Ativan) 2 mg PRN Q15MIN PRN IV ; Start 06/07/18 at 17:30; Status UNV Lorazepam (Ativan) 4 mg PRN Q15MIN PRN IV ; Start 06/07/18 at 17:30; Status UNV Multivitamins 10 ml/Thiamine HCl 100 mg/Folic Acid 1 mg/Sodium Chloride 1,011.2 ml @ 100 mls/ hr DAILY IV ; Start 06/08/18 at 09:00; Stop 06/12/18 at 19:07; Status UNV Enalaprilat (Vasotec Inj) 1.25 mg PRN Q6HRS PRN IVP HYPERTENSION, SEE COMMENTS Last administered on 06/08/18 20:14; Start 06/08/18 at 09:30 Acetaminophen (Tylenol) 650 mg PRN Q6HRS PRN PO FEVER Last administered on 06/13 08:26; Start 06/08/18 at 09:45 Ondansetron HCl (Zofran) 4 mg PRN Q6HRS PRN IV NAUSEA/VOMITING; Start 06/08/18 at 09:45 Morphine Sulfate (Morphine Sulfate) 2 mg PRN Q2HR PRN IV MODERATE TO SEVERE PAIN Last administered on 06/11/18 03:01; Start 06/08/18 at 09:45 Tramadol HCl (Ultram) 50 mg PRN Q6HRS PRN PO MILD TO MODERATE PAIN Last administered on 06/10/18 19:17; Start 06/08/18 at 09:45 Docusate Sodium (Colace) 100 mg PRN DAILY PRN PO CONSTIPATION (1st Choice); Start 06/08/18 at 09:45 Amino Acids/ Glycerin/ Electrolytes 1,000 ml @ 80 mls/hr [id number] IV Last administered on 06/09/18 02:21; Start 06/08/18 at 10:30; Stop 06/09/18 at 08:01 ; Status DC Sodium Chloride 1,000 ml @ 100 mls/hr Q10H IV Last administered on 06/11/18 20:41; Start 06/09/18 at 08:00; Stop 06/12/18 at 12:58; Status DC Lisinopril (Prinivil) 20 mg DAILY PO Last administered on 06/10/18 08:40; Start 06/09/18 at 09:00; Stop 06/10/18 at 11:44; Status DC Senna/Docusate Sodium (Senna Plus) 1 tab BID PO Last administered on 06/12/18 08:48; Start 06/09/18 at 09:00 Docusate Sodium (Colace) 100 mg BID PO Last administered on 06/12/18 08:48; Start 06/09/18 at 09:00 Magnesium Hydroxide (Milk Of Magnesia) 2,400 mg PRN Q12HR PRN PO CONSTIPATION 3RD CHOICE Last administered on 06/09/18 12:52; Start 06/09/18 at 08:15 Lactulose (Lactulose) 20 gm PRN Q12HR PRN PO CONSTIPATION 2ND CHOICE; Start at 08:15 Influenza Virus Vaccine (Afluria Trivalent [id number] Syringe) 0.5 ml ONCE ONCE VAX IM Last administered on 06/09/18at 09:08; Start 06/09/18 at 10:00; Stop at 10:01; Status DC Multi-Ingredient Mouthwash/Gargle (Gi Cocktail) 20 ml PRN Q15MIN PRN PO CHEST PAIN Last administered on 06/09/18at 15:58; Start 06/09/18 at 09:15 Bisacodyl (Dulcolax Tab) 10 mg DAILY PO Last administered on 06/12/18at 08:48; Start 06/09/18 at 12:00 Magnesium Hydroxide (Milk Of Magnesia) 2,400 mg PRN DAILY PRN PO CONSTIPATION ( 2nd Choice); Start 06/09/18 at 11:45; Stop 06/10/18 at 19:37; Status DC Magnesium Citrate (Citroma) 296 ml PRN 1X PRN PO CONSTIPATION, UNREL BY OTHERS ; Start 06/09/18 at 11:45 Lorazepam (Ativan) 0.5 mg PRN Q8HRS PRN PO ANXIETY / AGITATION; Start 06/10/18 at 11:45 Haloperidol Lactate (Haldol Inj) 2 mg PRN Q4HRS PRN IVP Hallucinatns,Confusn, Delirium; Start 06/10/18 at 14:15 Vitals/I & O Vital Sign - Last 24 Hours 06/12/18 06/12/18 06/12/18 06/12/18 15:00 19:00 20:00 23:00 Temp 97.9 98.1 97.7 97.9 98.1 97.7 Pulse 68 83 65 Resp 16 16 16 B/P (MAP) 130/55 (80) 132/93 (106) 156/103 (120) Pulse Ox 96 97 97 O2 Delivery Room Air Room Air Room Air Room Air 06/13/18 06/13/18 06/13/18 07:00 08:00 11:00 Temp 98.1 98.2 98.1 98.2 Pulse 65 65 Resp 16 16 B/P (MAP) 117/77 (90) 131/76 (94) Pulse Ox 97 96 O2 Delivery Room Air Room Air Room Air JOHN CAMILO III DO Jun 13, 2018 15:07
[2018-06-13 19:00] VITALS: BP 114/75
[2018-06-13 23:00] VITALS: BP 135/99
[2018-06-14] MEDS: ACETAMINOPHEN 325 MG TABLET. PO PRN ×2 (02:46→17:37)
[2018-06-14 03:00] VITALS: BP 125/92
[2018-06-14 07:00] VITALS: BP 143/95
[2018-06-14] MEDS: BISACODYL 5 MG TABLET.DR. PO SCH (09:00)
[2018-06-14] MEDS: SENNOSIDES/DOCUSATE 8.6/50MG TABLET. PO SCH ×2 (09:00→21:00)
[2018-06-14] MEDS: FOLIC ACID 1 MG TABLET. PO SCH (09:16)
[2018-06-14] MEDS: DOCUSATE SODIUM 100 MG CAPSULE. PO SCH ×2 (09:16→21:00)
[2018-06-14] MEDS: MULTIVITAMIN with MINERAL TABLET. PO SCH (09:16)
--- NOTE | 2018-06-14 09:34 | PDOC ---
PROGRESS NOTES Chief Complaint Chief Complaint Left frontal hemorrhage with contusion, edema, from fall traumatic ETOH abuse AMS, with brain hemorrhage, with some confusion and memory issues constipation HTN hyponatremia encephalopathy History of Present Illness History of Present Illness pt seen and examined, pt was talkative and walking around, prob. approaching baseline, dw pt on the phone due to concerns of confusion dw RN Vitals Vitals Vital Signs Date Time Temp Pulse Resp B/P (MAP) Pulse Ox O2 Delivery O2 Flow Rate FiO2 06/14/18 07:00 98.1 77 16 143/95 (111) 96 Room Air 98.1 Physical Exam Physical Exam talks very slow, not answer some questions, bl strength ok General: Alert, Oriented X3, Cooperative, mild distress, Other (MENTATION SLOW , ENCEPHALOPATHIC) Heart: Regular rate, Normal S1, Normal S2 Lungs: Clear Abdomen: Soft, No tenderness Extremities: No clubbing, No cyanosis, No edema Skin: No rashes, No breakdown Review of Systems Review of Systems CO weakness CO hunger Assessment and Plan Assessmemt and Plan Problems Medical Problems: (1) ETOH abuse Status: Acute (2) Fall Status: Acute Left frontal hemorrhage with contusion, edema, from fall traumatic ETOH abuse AMS, with brain hemorrhage, with some confusion and memory issues constipation HTN hyponatremia encephalopathy Plan: discharge to SNU Comment Review of Relevant I have reviewed the following items ranjan (where applicable) has been applied. Medications Current Medications Sodium Chloride 1,000 ml @ 1,000 mls/hr 1X ONCE IV Last administered on at 12:33; Start 06/07/18 at 12:15; Stop 06/07/18 at 13:14; Status DC Ondansetron HCl (Zofran) 4 mg PRN Q8HRS PRN IV NAUSEA/VOMITING; Start 06/07/18 at 13:45; Stop 06/08/18 at 13:44; Status DC Morphine Sulfate (Morphine Sulfate) 4 mg PRN Q2HR PRN IV PAIN Last administered on 06/08/18at 06:47; Start 06/07/18 at 13:45; Stop 06/08/18 at 13:44 ; Status DC Potassium Chloride/Water 100 ml @ 100 mls/hr Q1H IV Last administered on at 19:51; Start 06/07/18 at 15:00; Stop 06/07/18 at 18:59; Status DC Multivitamins 10 ml/Thiamine HCl 100 mg/Folic Acid 1 mg/Sodium Chloride 1,011.2 ml @ 100 mls/ hr DAILY IV Last administered on 06/11/18at 09:06; Start at 16:00; Stop 06/11/18 at 19:07; Status DC Lorazepam (Ativan) 2 mg PRN Q1HR PRN IV For CIWA 8-14 Last administered on 06/09at 14:16; Start 06/07/18 at 15:00; Stop 06/10/18 at 11:44; Status DC Lorazepam (Ativan) 4 mg PRN Q1HR PRN IV For CIWA 15 or greater; Start 06/07/18 at 15:00; Stop 06/10/18 at 11:44; Status DC Multivitamins 10 ml/Thiamine HCl 100 mg/Folic Acid 1 mg/Sodium Chloride 1,011.2 ml @ 100 mls/ hr DAILY IV ; Start 06/08/18 at 09:00; Stop 06/12/18 at 19:07; Status UNV Multivitamins (Thera M Plus) 1 tab DAILY PO Last administered on 06/14/18at 09: 16; Start 06/12/18 at 09:00 Folic Acid (Folic Acid) 1 mg DAILY PO Last administered on 06/14/18at 09:16; Start 06/12/18 at 09:00 Lorazepam (Ativan) 4 mg PRN Q1HR PRN PO For CIWA 8-14; Start 06/07/18 at 17:30 ; Stop 06/10/18 at 11:44; Status DC Lorazepam (Ativan) 8 mg PRN Q1HR PRN PO For CIWA 15 or greater; Start 06/07/18 at 17:30; Stop 06/10/18 at 11:44; Status DC Lorazepam (Ativan) 4 mg PRN Q1HR PRN IV For CIWA 15 or greater; Start 06/07/18 at 17:30; Status UNV Haloperidol Lactate (Haldol Inj) 5 mg PRN Q4HRS PRN IVP Hallucinatns,Confusn, Delirium; Start 06/07/18 at 17:30; Stop 06/10/18 at 14:13; Status DC Diphenhydramine HCl (Benadryl) 25 mg PRN Q15MIN PRN IVP EPS symptoms 2'Haldol admin; Start 06/07/18 at 17:30 Clonidine HCl (Catapres) 0.1 mg PRN Q1HR PRN PO SBP > 180 or DBP > 100, MRX3; Start 06/07/18 at 17:30 Lorazepam (Ativan) 2 mg PRN Q15MIN PRN IV ; Start 06/07/18 at 17:30; Status UNV Lorazepam (Ativan) 4 mg PRN Q15MIN PRN IV ; Start 06/07/18 at 17:30; Status UNV Multivitamins 10 ml/Thiamine HCl 100 mg/Folic Acid 1 mg/Sodium Chloride 1,011.2 ml @ 100 mls/ hr DAILY IV ; Start 06/08/18 at 09:00; Stop 06/12/18 at 19:07; Status UNV Enalaprilat (Vasotec Inj) 1.25 mg PRN Q6HRS PRN IVP HYPERTENSION, SEE COMMENTS Last administered on 06/08/18at 20:14; Start 06/08/18 at 09:30 Acetaminophen (Tylenol) 650 mg PRN Q6HRS PRN PO FEVER Last administered on 06/14at 02:46; Start 06/08/18 at 09:45 Ondansetron HCl (Zofran) 4 mg PRN Q6HRS PRN IV NAUSEA/VOMITING; Start 06/08/18 at 09:45 Morphine Sulfate (Morphine Sulfate) 2 mg PRN Q2HR PRN IV MODERATE TO SEVERE PAIN Last administered on 06/11/18at 03:01; Start 06/08/18 at 09:45 Tramadol HCl (Ultram) 50 mg PRN Q6HRS PRN PO MILD TO MODERATE PAIN Last administered on 06/10/18at 19:17; Start 06/08/18 at 09:45 Docusate Sodium (Colace) 100 mg PRN DAILY PRN PO CONSTIPATION (1st Choice); Start 06/08/18 at 09:45 Amino Acids/ Glycerin/ Electrolytes 1,000 ml @ 80 mls/hr [id number] IV Last administered on 06/09/18at 02:21; Start 06/08/18 at 10:30; Stop 06/09/18 at 08:01 ; Status DC Sodium Chloride 1,000 ml @ 100 mls/hr Q10H IV Last administered on 06/11/18at 20:41; Start 06/09/18 at 08:00; Stop 06/12/18 at 12:58; Status DC Lisinopril (Prinivil) 20 mg DAILY PO Last administered on 06/10/18at 08:40; Start 06/09/18 at 09:00; Stop 06/10/18 at 11:44; Status DC Senna/Docusate Sodium (Senna Plus) 1 tab BID PO Last administered on 06/12/18at 08:48; Start 06/09/18 at 09:00 Docusate Sodium (Colace) 100 mg BID PO Last administered on 06/14/18at 09:16; Start 06/09/18 at 09:00 Magnesium Hydroxide (Milk Of Magnesia) 2,400 mg PRN Q12HR PRN PO CONSTIPATION 3RD CHOICE Last administered on 06/09/18at 12:52; Start 06/09/18 at 08:15 Lactulose (Lactulose) 20 gm PRN Q12HR PRN PO CONSTIPATION 2ND CHOICE; Start at 08:15 Influenza Virus Vaccine (Afluria Trivalent [id number] Syringe) 0.5 ml ONCE ONCE VAX IM Last administered on 06/09/18at 09:08; Start 06/09/18 at 10:00; Stop at 10:01; Status DC Multi-Ingredient Mouthwash/Gargle (Gi Cocktail) 20 ml PRN Q15MIN PRN PO CHEST PAIN Last administered on 06/09/18at 15:58; Start 06/09/18 at 09:15 Bisacodyl (Dulcolax Tab) 10 mg DAILY PO Last administered on 06/12/18at 08:48; Start 06/09/18 at 12:00 Magnesium Hydroxide (Milk Of Magnesia) 2,400 mg PRN DAILY PRN PO CONSTIPATION ( 2nd Choice); Start 06/09/18 at 11:45; Stop 06/10/18 at 19:37; Status DC Magnesium Citrate (Citroma) 296 ml PRN 1X PRN PO CONSTIPATION, UNREL BY OTHERS ; Start 06/09/18 at 11:45 Lorazepam (Ativan) 0.5 mg PRN Q8HRS PRN PO ANXIETY / AGITATION; Start 06/10/18 at 11:45 Haloperidol Lactate (Haldol Inj) 2 mg PRN Q4HRS PRN IVP Hallucinatns,Confusn, Delirium; Start 06/10/18 at 14:15 Vitals/I & O Vital Sign - Last 24 Hours 06/13/18 06/13/18 06/13/18 06/13/18 11:00 15:00 19:00 20:26 Temp 98.2 98.1 97.5 98.2 98.1 97.5 Pulse 65 60 85 Resp 16 18 18 B/P (MAP) 131/76 (94) 108/85 (93) 114/75 (88) Pulse Ox 96 93 95 O2 Delivery Room Air Room Air Room Air Room Air 06/13/18 06/14/18 06/14/18 23:00 03:00 07:00 Temp 98.1 97.9 98.1 98.1 97.9 98.1 Pulse 84 84 77 Resp 18 18 16 B/P (MAP) 135/99 (111) 125/92 (103) 143/95 (111) Pulse Ox 95 95 96 O2 Delivery Room Air Room Air Room Air Intake and Output 06/13/18 06/13/18 06/14/18 15:00 23:00 07:00 Intake Total 0 ml Balance 0 ml JOHN CAMILO III DO Jun 14, 2018 09:34
--- NOTE | 2018-06-14 09:51 | PDOC ---
PROGRESS NOTES Subjective Subjective No complaints. Objective Objective Vital Signs Date Time Temp Pulse Resp B/P (MAP) Pulse Ox O2 Delivery O2 Flow Rate FiO2 06/14/18 07:00 98.1 77 16 143/95 (111) 96 Room Air 98.1 06/11/18 08:00 2.0 Intake and Output 06/14/18 07:00 Intake Total 0 ml Balance 0 ml Intake Oral 0 ml # Voids 6 Physical Exam Physical Exam He is alert and comfortable and he is doing better with his communication and cognition but nursing still observed some cognitive deficits.He is independent with his mobility and self care. Assessment Assessment Problems Medical Problems: (1) ETOH abuse Status: Acute (2) Fall Status: Acute Plan Plan of Care To home with out patient speech pathology follow up or to SNF if his family can afford to pay co-payment. Comment Review of Relevant I have reviewed the following items ranjan (where applicable) has been applied. Medications Current Medications Sodium Chloride 1,000 ml @ 1,000 mls/hr 1X ONCE IV Last administered on at 12:33; Start 06/07/18 at 12:15; Stop 06/07/18 at 13:14; Status DC Ondansetron HCl (Zofran) 4 mg PRN Q8HRS PRN IV NAUSEA/VOMITING; Start 06/07/18 at 13:45; Stop 06/08/18 at 13:44; Status DC Morphine Sulfate (Morphine Sulfate) 4 mg PRN Q2HR PRN IV PAIN Last administered on 06/08/18at 06:47; Start 06/07/18 at 13:45; Stop 06/08/18 at 13:44 ; Status DC Potassium Chloride/Water 100 ml @ 100 mls/hr Q1H IV Last administered on at 19:51; Start 06/07/18 at 15:00; Stop 06/07/18 at 18:59; Status DC Multivitamins 10 ml/Thiamine HCl 100 mg/Folic Acid 1 mg/Sodium Chloride 1,011.2 ml @ 100 mls/ hr DAILY IV Last administered on 06/11/18at 09:06; Start at 16:00; Stop 06/11/18 at 19:07; Status DC Lorazepam (Ativan) 2 mg PRN Q1HR PRN IV For CIWA 8-14 Last administered on 06/09at 14:16; Start 06/07/18 at 15:00; Stop 06/10/18 at 11:44; Status DC Lorazepam (Ativan) 4 mg PRN Q1HR PRN IV For CIWA 15 or greater; Start 06/07/18 at 15:00; Stop 06/10/18 at 11:44; Status DC Multivitamins 10 ml/Thiamine HCl 100 mg/Folic Acid 1 mg/Sodium Chloride 1,011.2 ml @ 100 mls/ hr DAILY IV ; Start 06/08/18 at 09:00; Stop 06/12/18 at 19:07; Status UNV Multivitamins (Thera M Plus) 1 tab DAILY PO Last administered on 06/14/18at 09: 16; Start 06/12/18 at 09:00 Folic Acid (Folic Acid) 1 mg DAILY PO Last administered on 06/14/18at 09:16; Start 06/12/18 at 09:00 Lorazepam (Ativan) 4 mg PRN Q1HR PRN PO For CIWA 8-14; Start 06/07/18 at 17:30 ; Stop 06/10/18 at 11:44; Status DC Lorazepam (Ativan) 8 mg PRN Q1HR PRN PO For CIWA 15 or greater; Start 06/07/18 at 17:30; Stop 06/10/18 at 11:44; Status DC Lorazepam (Ativan) 4 mg PRN Q1HR PRN IV For CIWA 15 or greater; Start 06/07/18 at 17:30; Status UNV Haloperidol Lactate (Haldol Inj) 5 mg PRN Q4HRS PRN IVP Hallucinatns,Confusn, Delirium; Start 06/07/18 at 17:30; Stop 06/10/18 at 14:13; Status DC Diphenhydramine HCl (Benadryl) 25 mg PRN Q15MIN PRN IVP EPS symptoms 2'Haldol admin; Start 06/07/18 at 17:30 Clonidine HCl (Catapres) 0.1 mg PRN Q1HR PRN PO SBP > 180 or DBP > 100, MRX3; Start 06/07/18 at 17:30 Lorazepam (Ativan) 2 mg PRN Q15MIN PRN IV ; Start 06/07/18 at 17:30; Status UNV Lorazepam (Ativan) 4 mg PRN Q15MIN PRN IV ; Start 06/07/18 at 17:30; Status UNV Multivitamins 10 ml/Thiamine HCl 100 mg/Folic Acid 1 mg/Sodium Chloride 1,011.2 ml @ 100 mls/ hr DAILY IV ; Start 06/08/18 at 09:00; Stop 06/12/18 at 19:07; Status UNV Enalaprilat (Vasotec Inj) 1.25 mg PRN Q6HRS PRN IVP HYPERTENSION, SEE COMMENTS Last administered on 06/08/18at 20:14; Start 06/08/18 at 09:30 Acetaminophen (Tylenol) 650 mg PRN Q6HRS PRN PO FEVER Last administered on 06/14at 02:46; Start 06/08/18 at 09:45 Ondansetron HCl (Zofran) 4 mg PRN Q6HRS PRN IV NAUSEA/VOMITING; Start 06/08/18 at 09:45 Morphine Sulfate (Morphine Sulfate) 2 mg PRN Q2HR PRN IV MODERATE TO SEVERE PAIN Last administered on 06/11/18at 03:01; Start 06/08/18 at 09:45 Tramadol HCl (Ultram) 50 mg PRN Q6HRS PRN PO MILD TO MODERATE PAIN Last administered on 06/10/18at 19:17; Start 06/08/18 at 09:45 Docusate Sodium (Colace) 100 mg PRN DAILY PRN PO CONSTIPATION (1st Choice); Start 06/08/18 at 09:45 Amino Acids/ Glycerin/ Electrolytes 1,000 ml @ 80 mls/hr [id number] IV Last administered on 06/09/18at 02:21; Start 06/08/18 at 10:30; Stop 06/09/18 at 08:01 ; Status DC Sodium Chloride 1,000 ml @ 100 mls/hr Q10H IV Last administered on 06/11/18at 20:41; Start 06/09/18 at 08:00; Stop 06/12/18 at 12:58; Status DC Lisinopril (Prinivil) 20 mg DAILY PO Last administered on 06/10/18at 08:40; Start 06/09/18 at 09:00; Stop 06/10/18 at 11:44; Status DC Senna/Docusate Sodium (Senna Plus) 1 tab BID PO Last administered on 06/12/18at 08:48; Start 06/09/18 at 09:00 Docusate Sodium (Colace) 100 mg BID PO Last administered on 06/14/18at 09:16; Start 06/09/18 at 09:00 Magnesium Hydroxide (Milk Of Magnesia) 2,400 mg PRN Q12HR PRN PO CONSTIPATION 3RD CHOICE Last administered on 06/09/18at 12:52; Start 06/09/18 at 08:15 Lactulose (Lactulose) 20 gm PRN Q12HR PRN PO CONSTIPATION 2ND CHOICE; Start at 08:15 Influenza Virus Vaccine (Afluria Trivalent [id number] Syringe) 0.5 ml ONCE ONCE VAX IM Last administered on 06/09/18at 09:08; Start 06/09/18 at 10:00; Stop at 10:01; Status DC Multi-Ingredient Mouthwash/Gargle (Gi Cocktail) 20 ml PRN Q15MIN PRN PO CHEST PAIN Last administered on 06/09/18at 15:58; Start 06/09/18 at 09:15 Bisacodyl (Dulcolax Tab) 10 mg DAILY PO Last administered on 06/12/18at 08:48; Start 06/09/18 at 12:00 Magnesium Hydroxide (Milk Of Magnesia) 2,400 mg PRN DAILY PRN PO CONSTIPATION ( 2nd Choice); Start 06/09/18 at 11:45; Stop 06/10/18 at 19:37; Status DC Magnesium Citrate (Citroma) 296 ml PRN 1X PRN PO CONSTIPATION, UNREL BY OTHERS ; Start 06/09/18 at 11:45 Lorazepam (Ativan) 0.5 mg PRN Q8HRS PRN PO ANXIETY / AGITATION; Start 06/10/18 at 11:45 Haloperidol Lactate (Haldol Inj) 2 mg PRN Q4HRS PRN IVP Hallucinatns,Confusn, Delirium; Start 06/10/18 at 14:15 Vitals/I & O Vital Sign - Last 24 Hours 06/13/18 06/13/18 06/13/18 06/13/18 11:00 15:00 19:00 20:26 Temp 98.2 98.1 97.5 98.2 98.1 97.5 Pulse 65 60 85 Resp 16 18 18 B/P (MAP) 131/76 (94) 108/85 (93) 114/75 (88) Pulse Ox 96 93 95 O2 Delivery Room Air Room Air Room Air Room Air 06/13/18 06/14/18 06/14/18 23:00 03:00 07:00 Temp 98.1 97.9 98.1 98.1 97.9 98.1 Pulse 84 84 77 Resp 18 18 16 B/P (MAP) 135/99 (111) 125/92 (103) 143/95 (111) Pulse Ox 95 95 96 O2 Delivery Room Air Room Air Room Air Intake and Output 06/13/18 06/13/18 06/14/18 15:00 23:00 07:00 Intake Total 0 ml Balance 0 ml JIMMY DAVIS MD Jun 14, 2018 09:51
[2018-06-14 11:00] VITALS: BP 152/105
[2018-06-14 15:00] VITALS: BP 142/93
[2018-06-14 19:00] VITALS: BP 115/72
[2018-06-14 23:00] VITALS: BP 122/78
[2018-06-15 03:00] VITALS: BP 119/90
[2018-06-15 07:00] VITALS: BP 107/73
--- NOTE | 2018-06-15 09:13 | PDOC ---
PROGRESS NOTES Subjective Subjective No new complaints. Objective Objective Vital Signs Date Time Temp Pulse Resp B/P (MAP) Pulse Ox O2 Delivery O2 Flow Rate FiO2 06/15/18 07:00 98.2 69 16 107/73 (84) 99 Room Air 98.2 06/11/18 08:00 2.0 Intake and Output 06/15/18 07:00 # Voids 5 Physical Exam Physical Exam He is resting now supine in bed after he received ativan for restlessness last PM. He continues with cognitive and communication deficits. Assessment Assessment Problems Medical Problems: (1) ETOH abuse Status: Acute (2) Fall Status: Acute Plan Plan of Care To continue speech pathology follow jup and to SNF or home with home health whatever his decides. Comment Review of Relevant I have reviewed the following items ranjan (where applicable) has been applied. Medications Current Medications Sodium Chloride 1,000 ml @ 1,000 mls/hr 1X ONCE IV Last administered on at 12:33; Start 06/07/18 at 12:15; Stop 06/07/18 at 13:14; Status DC Ondansetron HCl (Zofran) 4 mg PRN Q8HRS PRN IV NAUSEA/VOMITING; Start 06/07/18 at 13:45; Stop 06/08/18 at 13:44; Status DC Morphine Sulfate (Morphine Sulfate) 4 mg PRN Q2HR PRN IV PAIN Last administered on 06/08/18at 06:47; Start 06/07/18 at 13:45; Stop 06/08/18 at 13:44 ; Status DC Potassium Chloride/Water 100 ml @ 100 mls/hr Q1H IV Last administered on at 19:51; Start 06/07/18 at 15:00; Stop 06/07/18 at 18:59; Status DC Multivitamins 10 ml/Thiamine HCl 100 mg/Folic Acid 1 mg/Sodium Chloride 1,011.2 ml @ 100 mls/ hr DAILY IV Last administered on 06/11/18at 09:06; Start at 16:00; Stop 06/11/18 at 19:07; Status DC Lorazepam (Ativan) 2 mg PRN Q1HR PRN IV For CIWA 8-14 Last administered on 06/09at 14:16; Start 06/07/18 at 15:00; Stop 06/10/18 at 11:44; Status DC Lorazepam (Ativan) 4 mg PRN Q1HR PRN IV For CIWA 15 or greater; Start 06/07/18 at 15:00; Stop 06/10/18 at 11:44; Status DC Multivitamins 10 ml/Thiamine HCl 100 mg/Folic Acid 1 mg/Sodium Chloride 1,011.2 ml @ 100 mls/ hr DAILY IV ; Start 06/08/18 at 09:00; Stop 06/12/18 at 19:07; Status UNV Multivitamins (Thera M Plus) 1 tab DAILY PO Last administered on 06/14/18at 09: 16; Start 06/12/18 at 09:00 Folic Acid (Folic Acid) 1 mg DAILY PO Last administered on 06/14/18at 09:16; Start 06/12/18 at 09:00 Lorazepam (Ativan) 4 mg PRN Q1HR PRN PO For CIWA 8-14; Start 06/07/18 at 17:30 ; Stop 06/10/18 at 11:44; Status DC Lorazepam (Ativan) 8 mg PRN Q1HR PRN PO For CIWA 15 or greater; Start 06/07/18 at 17:30; Stop 06/10/18 at 11:44; Status DC Lorazepam (Ativan) 4 mg PRN Q1HR PRN IV For CIWA 15 or greater; Start 06/07/18 at 17:30; Status UNV Haloperidol Lactate (Haldol Inj) 5 mg PRN Q4HRS PRN IVP Hallucinatns,Confusn, Delirium; Start 06/07/18 at 17:30; Stop 06/10/18 at 14:13; Status DC Diphenhydramine HCl (Benadryl) 25 mg PRN Q15MIN PRN IVP EPS symptoms 2'Haldol admin; Start 06/07/18 at 17:30 Clonidine HCl (Catapres) 0.1 mg PRN Q1HR PRN PO SBP > 180 or DBP > 100, MRX3 Last administered on 06/14/18at 11:30; Start 06/07/18 at 17:30 Lorazepam (Ativan) 2 mg PRN Q15MIN PRN IV ; Start 06/07/18 at 17:30; Status UNV Lorazepam (Ativan) 4 mg PRN Q15MIN PRN IV ; Start 06/07/18 at 17:30; Status UNV Multivitamins 10 ml/Thiamine HCl 100 mg/Folic Acid 1 mg/Sodium Chloride 1,011.2 ml @ 100 mls/ hr DAILY IV ; Start 06/08/18 at 09:00; Stop 06/12/18 at 19:07; Status UNV Enalaprilat (Vasotec Inj) 1.25 mg PRN Q6HRS PRN IVP HYPERTENSION, SEE COMMENTS Last administered on 06/08/18at 20:14; Start 06/08/18 at 09:30 Acetaminophen (Tylenol) 650 mg PRN Q6HRS PRN PO FEVER Last administered on 06/14at 17:37; Start 06/08/18 at 09:45 Ondansetron HCl (Zofran) 4 mg PRN Q6HRS PRN IV NAUSEA/VOMITING; Start 06/08/18 at 09:45 Morphine Sulfate (Morphine Sulfate) 2 mg PRN Q2HR PRN IV MODERATE TO SEVERE PAIN Last administered on 06/11/18at 03:01; Start 06/08/18 at 09:45 Tramadol HCl (Ultram) 50 mg PRN Q6HRS PRN PO MILD TO MODERATE PAIN Last administered on 06/10/18at 19:17; Start 06/08/18 at 09:45 Docusate Sodium (Colace) 100 mg PRN DAILY PRN PO CONSTIPATION (1st Choice); Start 06/08/18 at 09:45 Amino Acids/ Glycerin/ Electrolytes 1,000 ml @ 80 mls/hr [id number] IV Last administered on 06/09/18at 02:21; Start 06/08/18 at 10:30; Stop 06/09/18 at 08:01 ; Status DC Sodium Chloride 1,000 ml @ 100 mls/hr Q10H IV Last administered on 06/11/18at 20:41; Start 06/09/18 at 08:00; Stop 06/12/18 at 12:58; Status DC Lisinopril (Prinivil) 20 mg DAILY PO Last administered on 06/10/18at 08:40; Start 06/09/18 at 09:00; Stop 06/10/18 at 11:44; Status DC Senna/Docusate Sodium (Senna Plus) 1 tab BID PO Last administered on 06/12/18 08:48; Start 06/09/18 at 09:00 Docusate Sodium (Colace) 100 mg BID PO Last administered on 06/14/18at 09:16; Start 06/09/18 at 09:00 Magnesium Hydroxide (Milk Of Magnesia) 2,400 mg PRN Q12HR PRN PO CONSTIPATION 3RD CHOICE Last administered on 06/09/18at 12:52; Start 06/09/18 at 08:15 Lactulose (Lactulose) 20 gm PRN Q12HR PRN PO CONSTIPATION 2ND CHOICE; Start at 08:15 Influenza Virus Vaccine (Afluria Trivalent [id number] Syringe) 0.5 ml ONCE ONCE VAX IM Last administered on 06/09/18at 09:08; Start 06/09/18 at 10:00; Stop at 10:01; Status DC Multi-Ingredient Mouthwash/Gargle (Gi Cocktail) 20 ml PRN Q15MIN PRN PO CHEST PAIN Last administered on 06/09/18at 15:58; Start 06/09/18 at 09:15 Bisacodyl (Dulcolax Tab) 10 mg DAILY PO Last administered on 06/12/18at 08:48; Start 06/09/18 at 12:00 Magnesium Hydroxide (Milk Of Magnesia) 2,400 mg PRN DAILY PRN PO CONSTIPATION ( 2nd Choice); Start 06/09/18 at 11:45; Stop 06/10/18 at 19:37; Status DC Magnesium Citrate (Citroma) 296 ml PRN 1X PRN PO CONSTIPATION, UNREL BY OTHERS ; Start 06/09/18 at 11:45 Lorazepam (Ativan) 0.5 mg PRN Q8HRS PRN PO ANXIETY / AGITATION Last administered on 06/14/18at 22:04; Start 06/10/18 at 11:45 Haloperidol Lactate (Haldol Inj) 2 mg PRN Q4HRS PRN IVP Hallucinatns,Confusn, Delirium; Start 06/10/18 at 14:15 Active Scripts Active Thiamine Hcl 100 Mg Tablet 100 Mg PO AFTRNOON 14 Days Thera-M Tablet (Multivits,Ca,Minerals/Iron/Fa) 1 Each Tablet 1 Tab PO DAILY 14 Days Folic Acid 1 Mg Tablet 1 Mg PO DAILY 14 Days Senna-Time S Tablet (Sennosides/Docusate Sodium) 1 Each Tablet 1 Tab PO BID 14 Days Colace (Docusate Sodium) 100 Mg Capsule 100 Mg PO BID 14 Days Ativan (Lorazepam) 0.5 Mg Tablet 0.5 Mg PO PRN Q8HRS PRN 14 Days Tylenol (Acetaminophen) 325 Mg Tablet 650 Mg PO PRN Q6HRS PRN 14 Days Catapres (Clonidine Hcl) 0.1 Mg Tablet 0.1 Mg PO PRN Q1HR PRN 14 Days Vitals/I & O Vital Sign - Last 24 Hours 06/14/18 06/14/18 06/14/18 06/14/18 11:00 11:30 15:00 19:00 Temp 98.4 98.1 97.6 98.4 98.1 97.6 Pulse 82 79 89 87 Resp 16 16 18 B/P (MAP) 152/105 (121) 152/105 142/93 (109) 115/72 (86) Pulse Ox 97 98 99 O2 Delivery Room Air Room Air Room Air 06/14/18 06/14/18 06/15/18 06/15/18 20:24 23:00 03:00 07:00 Temp 98.3 97.9 98.2 98.3 97.9 98.2 Pulse 80 79 69 Resp 18 18 16 B/P (MAP) 122/78 (93) 119/90 (100) 107/73 (84) Pulse Ox 96 99 99 O2 Delivery Room Air Room Air Room Air Room Air JIMMY DAVIS MD Jun 15, 2018 09:13
--- NOTE | 2018-06-15 09:56 | PDOC ---
PROGRESS NOTES Assessment Problems Medical Problems: (1) ETOH abuse Status: Acute (2) Fall Status: Acute Large left frontal hematoma with surrounding edema. Metabolic encephalopathy. Left parasagiital SDH. Headaches. Fall. Alcoholism. Degenerative cervical spine disease. Plan BP control, keep less than 150/85 mmHg. Avoid anticoagulant and antiplatelet agents this time. Treat medical diseases. Awaiting transfer to fdc unit Subjective He denies pain Objective Vital Signs Date Time Temp Pulse Resp B/P (MAP) Pulse Ox O2 Delivery O2 Flow Rate FiO2 06/15/18 07:00 98.2 69 16 107/73 (84) 99 Room Air 98.2 PHYSICAL EXAM Alert. Oriented to place and person, not date. PERRL. EOMI. CN: no focal findings. Muscle tone: normal. Muscle strength: 4/5 on right, 5-/5 on left DTR: 2+ Plantar reflex: flexor Gait: not examined in bed. Sensory exam: no abnormal findings. No cerebellar signs elicited. Review of Relevant I have reviewed the following items ranjan (where applicable) has been applied. Medications Current Medications Sodium Chloride 1,000 ml @ 1,000 mls/hr 1X ONCE IV Last administered on at 12:33; Start 06/07/18 at 12:15; Stop 06/07/18 at 13:14; Status DC Ondansetron HCl (Zofran) 4 mg PRN Q8HRS PRN IV NAUSEA/VOMITING; Start 06/07/18 at 13:45; Stop 06/08/18 at 13:44; Status DC Morphine Sulfate (Morphine Sulfate) 4 mg PRN Q2HR PRN IV PAIN Last administered on 06/08/18at 06:47; Start 06/07/18 at 13:45; Stop 06/08/18 at 13:44 ; Status DC Potassium Chloride/Water 100 ml @ 100 mls/hr Q1H IV Last administered on at 19:51; Start 06/07/18 at 15:00; Stop 06/07/18 at 18:59; Status DC Multivitamins 10 ml/Thiamine HCl 100 mg/Folic Acid 1 mg/Sodium Chloride 1,011.2 ml @ 100 mls/ hr DAILY IV Last administered on 06/11/18at 09:06; Start at 16:00; Stop 06/11/18 at 19:07; Status DC Lorazepam (Ativan) 2 mg PRN Q1HR PRN IV For CIWA 8-14 Last administered on 06/09at 14:16; Start 06/07/18 at 15:00; Stop 06/10/18 at 11:44; Status DC Lorazepam (Ativan) 4 mg PRN Q1HR PRN IV For CIWA 15 or greater; Start 06/07/18 at 15:00; Stop 06/10/18 at 11:44; Status DC Multivitamins 10 ml/Thiamine HCl 100 mg/Folic Acid 1 mg/Sodium Chloride 1,011.2 ml @ 100 mls/ hr DAILY IV ; Start 06/08/18 at 09:00; Stop 06/12/18 at 19:07; Status UNV Multivitamins (Thera M Plus) 1 tab DAILY PO Last administered on 06/14/18at 09: 16; Start 06/12/18 at 09:00 Folic Acid (Folic Acid) 1 mg DAILY PO Last administered on 06/14/18at 09:16; Start 06/12/18 at 09:00 Lorazepam (Ativan) 4 mg PRN Q1HR PRN PO For CIWA 8-14; Start 06/07/18 at 17:30 ; Stop 06/10/18 at 11:44; Status DC Lorazepam (Ativan) 8 mg PRN Q1HR PRN PO For CIWA 15 or greater; Start 06/07/18 at 17:30; Stop 06/10/18 at 11:44; Status DC Lorazepam (Ativan) 4 mg PRN Q1HR PRN IV For CIWA 15 or greater; Start 06/07/18 at 17:30; Status UNV Haloperidol Lactate (Haldol Inj) 5 mg PRN Q4HRS PRN IVP Hallucinatns,Confusn, Delirium; Start 06/07/18 at 17:30; Stop 06/10/18 at 14:13; Status DC Diphenhydramine HCl (Benadryl) 25 mg PRN Q15MIN PRN IVP EPS symptoms 2'Haldol admin; Start 06/07/18 at 17:30 Clonidine HCl (Catapres) 0.1 mg PRN Q1HR PRN PO SBP > 180 or DBP > 100, MRX3 Last administered on 06/14/18at 11:30; Start 06/07/18 at 17:30 Lorazepam (Ativan) 2 mg PRN Q15MIN PRN IV ; Start 06/07/18 at 17:30; Status UNV Lorazepam (Ativan) 4 mg PRN Q15MIN PRN IV ; Start 06/07/18 at 17:30; Status UNV Multivitamins 10 ml/Thiamine HCl 100 mg/Folic Acid 1 mg/Sodium Chloride 1,011.2 ml @ 100 mls/ hr DAILY IV ; Start 06/08/18 at 09:00; Stop 06/12/18 at 19:07; Status UNV Enalaprilat (Vasotec Inj) 1.25 mg PRN Q6HRS PRN IVP HYPERTENSION, SEE COMMENTS Last administered on 06/08/18at 20:14; Start 06/08/18 at 09:30 Acetaminophen (Tylenol) 650 mg PRN Q6HRS PRN PO FEVER Last administered on 06/14at 17:37; Start 06/08/18 at 09:45 Ondansetron HCl (Zofran) 4 mg PRN Q6HRS PRN IV NAUSEA/VOMITING; Start 06/08/18 at 09:45 Morphine Sulfate (Morphine Sulfate) 2 mg PRN Q2HR PRN IV MODERATE TO SEVERE PAIN Last administered on 06/11/18at 03:01; Start 06/08/18 at 09:45 Tramadol HCl (Ultram) 50 mg PRN Q6HRS PRN PO MILD TO MODERATE PAIN Last administered on 06/10/18at 19:17; Start 06/08/18 at 09:45 Docusate Sodium (Colace) 100 mg PRN DAILY PRN PO CONSTIPATION (1st Choice); Start 06/08/18 at 09:45 Amino Acids/ Glycerin/ Electrolytes 1,000 ml @ 80 mls/hr [id number] IV Last administered on 06/09/18at 02:21; Start 06/08/18 at 10:30; Stop 06/09/18 at 08:01 ; Status DC Sodium Chloride 1,000 ml @ 100 mls/hr Q10H IV Last administered on 06/11/18at 20:41; Start 06/09/18 at 08:00; Stop 06/12/18 at 12:58; Status DC Lisinopril (Prinivil) 20 mg DAILY PO Last administered on 06/10/18at 08:40; Start 06/09/18 at 09:00; Stop 06/10/18 at 11:44; Status DC Senna/Docusate Sodium (Senna Plus) 1 tab BID PO Last administered on 06/12/18at 08:48; Start 06/09/18 at 09:00 Docusate Sodium (Colace) 100 mg BID PO Last administered on 06/14/18at 09:16; Start 06/09/18 at 09:00 Magnesium Hydroxide (Milk Of Magnesia) 2,400 mg PRN Q12HR PRN PO CONSTIPATION 3RD CHOICE Last administered on 06/09/18at 12:52; Start 06/09/18 at 08:15 Lactulose (Lactulose) 20 gm PRN Q12HR PRN PO CONSTIPATION 2ND CHOICE; Start at 08:15 Influenza Virus Vaccine (Afluria Trivalent [id number] Syringe) 0.5 ml ONCE ONCE VAX IM Last administered on 06/09/18at 09:08; Start 06/09/18 at 10:00; Stop at 10:01; Status DC Multi-Ingredient Mouthwash/Gargle (Gi Cocktail) 20 ml PRN Q15MIN PRN PO CHEST PAIN Last administered on 06/09/18at 15:58; Start 06/09/18 at 09:15 Bisacodyl (Dulcolax Tab) 10 mg DAILY PO Last administered on 06/12/18at 08:48; Start 06/09/18 at 12:00 Magnesium Hydroxide (Milk Of Magnesia) 2,400 mg PRN DAILY PRN PO CONSTIPATION ( 2nd Choice); Start 06/09/18 at 11:45; Stop 06/10/18 at 19:37; Status DC Magnesium Citrate (Citroma) 296 ml PRN 1X PRN PO CONSTIPATION, UNREL BY OTHERS ; Start 06/09/18 at 11:45 Lorazepam (Ativan) 0.5 mg PRN Q8HRS PRN PO ANXIETY / AGITATION Last administered on 06/14/18at 22:04; Start 06/10/18 at 11:45 Haloperidol Lactate (Haldol Inj) 2 mg PRN Q4HRS PRN IVP Hallucinatns,Confusn, Delirium; Start 06/10/18 at 14:15 Active Scripts Active Thiamine Hcl 100 Mg Tablet 100 Mg PO AFTRNOON 14 Days Thera-M Tablet (Multivits,Ca,Minerals/Iron/Fa) 1 Each Tablet 1 Tab PO DAILY 14 Days Folic Acid 1 Mg Tablet 1 Mg PO DAILY 14 Days Senna-Time S Tablet (Sennosides/Docusate Sodium) 1 Each Tablet 1 Tab PO BID 14 Days Colace (Docusate Sodium) 100 Mg Capsule 100 Mg PO BID 14 Days Ativan (Lorazepam) 0.5 Mg Tablet 0.5 Mg PO PRN Q8HRS PRN 14 Days Tylenol (Acetaminophen) 325 Mg Tablet 650 Mg PO PRN Q6HRS PRN 14 Days Catapres (Clonidine Hcl) 0.1 Mg Tablet 0.1 Mg PO PRN Q1HR PRN 14 Days Vitals/I & O Vital Sign - Last 24 Hours 06/14/18 06/14/18 06/14/18 06/14/18 11:00 11:30 15:00 19:00 Temp 98.4 98.1 97.6 98.4 98.1 97.6 Pulse 82 79 89 87 Resp 16 16 18 B/P (MAP) 152/105 (121) 152/105 142/93 (109) 115/72 (86) Pulse Ox 97 98 99 O2 Delivery Room Air Room Air Room Air 06/14/18 06/14/18 06/15/18 06/15/18 20:24 23:00 03:00 07:00 Temp 98.3 97.9 98.2 98.3 97.9 98.2 Pulse 80 79 69 Resp 18 18 16 B/P (MAP) 122/78 (93) 119/90 (100) 107/73 (84) Pulse Ox 96 99 99 O2 Delivery Room Air Room Air Room Air Room Air GUIDO TAMAYO MD Jun 15, 2018 09:56
[2018-06-15] MEDS: SENNOSIDES/DOCUSATE 8.6/50MG TABLET. PO SCH (10:23)
[2018-06-15] MEDS: DOCUSATE SODIUM 100 MG CAPSULE. PO SCH (10:23)
[2018-06-15] MEDS: FOLIC ACID 1 MG TABLET. PO SCH (10:23)
[2018-06-15] MEDS: MULTIVITAMIN with MINERAL TABLET. PO SCH (10:23)
[2018-06-15] MEDS: BISACODYL 5 MG TABLET.DR. PO SCH (10:24)
[2018-06-15 11:00] VITALS: BP 115/83
--- NOTE | 2018-06-15 11:23 | PDOC ---
PROGRESS NOTES Chief Complaint Chief Complaint Left frontal hemorrhage with contusion, edema, from fall traumatic ETOH abuse AMS, with brain hemorrhage, with some confusion and memory issues constipation HTN hyponatremia encephalopathy History of Present Illness History of Present Illness pt seen and examined, pt resting w/ NAD dw RN reports confusion and agitation last night will redischarge to SNU Vitals Vitals Vital Signs Date Time Temp Pulse Resp B/P (MAP) Pulse Ox O2 Delivery O2 Flow Rate FiO2 06/15/18 07:00 98.2 69 16 107/73 (84) 99 Room Air 98.2 Physical Exam Physical Exam talks very slow, not answer some questions, bl strength ok General: Alert, Oriented X3, Cooperative, No acute distress, mild distress, Other (MENTATION SLOW, ENCEPHALOPATHIC) Heart: Regular rate, Normal S1, Normal S2 Lungs: Clear Abdomen: Soft, No tenderness Extremities: No clubbing, No cyanosis, No edema Skin: No rashes, No breakdown Review of Systems Review of Systems CO hunger CO fatigue Assessment and Plan Assessmemt and Plan Problems Medical Problems: (1) ETOH abuse Status: Acute (2) Fall Status: Acute Left frontal hemorrhage with contusion, edema, from fall traumatic ETOH abuse AMS, with brain hemorrhage, with some confusion and memory issues constipation HTN hyponatremia encephalopathy Plan: Discharge to SNU Comment Review of Relevant I have reviewed the following items ranjan (where applicable) has been applied. Medications Current Medications Sodium Chloride 1,000 ml @ 1,000 mls/hr 1X ONCE IV Last administered on at 12:33; Start 06/07/18 at 12:15; Stop 06/07/18 at 13:14; Status DC Ondansetron HCl (Zofran) 4 mg PRN Q8HRS PRN IV NAUSEA/VOMITING; Start 06/07/18 at 13:45; Stop 06/08/18 at 13:44; Status DC Morphine Sulfate (Morphine Sulfate) 4 mg PRN Q2HR PRN IV PAIN Last administered on 06/08/18at 06:47; Start 06/07/18 at 13:45; Stop 06/08/18 at 13:44 ; Status DC Potassium Chloride/Water 100 ml @ 100 mls/hr Q1H IV Last administered on at 19:51; Start 06/07/18 at 15:00; Stop 06/07/18 at 18:59; Status DC Multivitamins 10 ml/Thiamine HCl 100 mg/Folic Acid 1 mg/Sodium Chloride 1,011.2 ml @ 100 mls/ hr DAILY IV Last administered on 06/11/18at 09:06; Start at 16:00; Stop 06/11/18 at 19:07; Status DC Lorazepam (Ativan) 2 mg PRN Q1HR PRN IV For CIWA 8-14 Last administered on 06/09at 14:16; Start 06/07/18 at 15:00; Stop 06/10/18 at 11:44; Status DC Lorazepam (Ativan) 4 mg PRN Q1HR PRN IV For CIWA 15 or greater; Start 06/07/18 at 15:00; Stop 06/10/18 at 11:44; Status DC Multivitamins 10 ml/Thiamine HCl 100 mg/Folic Acid 1 mg/Sodium Chloride 1,011.2 ml @ 100 mls/ hr DAILY IV ; Start 06/08/18 at 09:00; Stop 06/12/18 at 19:07; Status UNV Multivitamins (Thera M Plus) 1 tab DAILY PO Last administered on 06/15/18at 10: 23; Start 06/12/18 at 09:00 Folic Acid (Folic Acid) 1 mg DAILY PO Last administered on 06/15/18at 10:23; Start 06/12/18 at 09:00 Lorazepam (Ativan) 4 mg PRN Q1HR PRN PO For CIWA 8-14; Start 06/07/18 at 17:30 ; Stop 06/10/18 at 11:44; Status DC Lorazepam (Ativan) 8 mg PRN Q1HR PRN PO For CIWA 15 or greater; Start 06/07/18 at 17:30; Stop 06/10/18 at 11:44; Status DC Lorazepam (Ativan) 4 mg PRN Q1HR PRN IV For CIWA 15 or greater; Start 06/07/18 at 17:30; Status UNV Haloperidol Lactate (Haldol Inj) 5 mg PRN Q4HRS PRN IVP Hallucinatns,Confusn, Delirium; Start 06/07/18 at 17:30; Stop 06/10/18 at 14:13; Status DC Diphenhydramine HCl (Benadryl) 25 mg PRN Q15MIN PRN IVP EPS symptoms 2'Haldol admin; Start 06/07/18 at 17:30 Clonidine HCl (Catapres) 0.1 mg PRN Q1HR PRN PO SBP > 180 or DBP > 100, MRX3 Last administered on 06/14/18at 11:30; Start 06/07/18 at 17:30 Lorazepam (Ativan) 2 mg PRN Q15MIN PRN IV ; Start 06/07/18 at 17:30; Status UNV Lorazepam (Ativan) 4 mg PRN Q15MIN PRN IV ; Start 06/07/18 at 17:30; Status UNV Multivitamins 10 ml/Thiamine HCl 100 mg/Folic Acid 1 mg/Sodium Chloride 1,011.2 ml @ 100 mls/ hr DAILY IV ; Start 06/08/18 at 09:00; Stop 06/12/18 at 19:07; Status UNV Enalaprilat (Vasotec Inj) 1.25 mg PRN Q6HRS PRN IVP HYPERTENSION, SEE COMMENTS Last administered on 06/08/18at 20:14; Start 06/08/18 at 09:30 Acetaminophen (Tylenol) 650 mg PRN Q6HRS PRN PO FEVER Last administered on 06/14at 17:37; Start 06/08/18 at 09:45 Ondansetron HCl (Zofran) 4 mg PRN Q6HRS PRN IV NAUSEA/VOMITING; Start 06/08/18 at 09:45 Morphine Sulfate (Morphine Sulfate) 2 mg PRN Q2HR PRN IV MODERATE TO SEVERE PAIN Last administered on 06/11/18at 03:01; Start 06/08/18 at 09:45 Tramadol HCl (Ultram) 50 mg PRN Q6HRS PRN PO MILD TO MODERATE PAIN Last administered on 06/10/18at 19:17; Start 06/08/18 at 09:45 Docusate Sodium (Colace) 100 mg PRN DAILY PRN PO CONSTIPATION (1st Choice); Start 06/08/18 at 09:45 Amino Acids/ Glycerin/ Electrolytes 1,000 ml @ 80 mls/hr [id number] IV Last administered on 06/09/18at 02:21; Start 06/08/18 at 10:30; Stop 06/09/18 at 08:01 ; Status DC Sodium Chloride 1,000 ml @ 100 mls/hr Q10H IV Last administered on 06/11/18at 20:41; Start 06/09/18 at 08:00; Stop 06/12/18 at 12:58; Status DC Lisinopril (Prinivil) 20 mg DAILY PO Last administered on 06/10/18at 08:40; Start 06/09/18 at 09:00; Stop 06/10/18 at 11:44; Status DC Senna/Docusate Sodium (Senna Plus) 1 tab BID PO Last administered on 06/15/18at 10:23; Start 06/09/18 at 09:00 Docusate Sodium (Colace) 100 mg BID PO Last administered on 06/15/18at 10:23; Start 06/09/18 at 09:00 Magnesium Hydroxide (Milk Of Magnesia) 2,400 mg PRN Q12HR PRN PO CONSTIPATION 3RD CHOICE Last administered on 06/09/18at 12:52; Start 06/09/18 at 08:15 Lactulose (Lactulose) 20 gm PRN Q12HR PRN PO CONSTIPATION 2ND CHOICE; Start at 08:15 Influenza Virus Vaccine (Afluria Trivalent [id number] Syringe) 0.5 ml ONCE ONCE VAX IM Last administered on 06/09/18at 09:08; Start 06/09/18 at 10:00; Stop at 10:01; Status DC Multi-Ingredient Mouthwash/Gargle (Gi Cocktail) 20 ml PRN Q15MIN PRN PO CHEST PAIN Last administered on 06/09/18at 15:58; Start 06/09/18 at 09:15 Bisacodyl (Dulcolax Tab) 10 mg DAILY PO Last administered on 06/15/18at 10:24; Start 06/09/18 at 12:00 Magnesium Hydroxide (Milk Of Magnesia) 2,400 mg PRN DAILY PRN PO CONSTIPATION ( 2nd Choice); Start 06/09/18 at 11:45; Stop 06/10/18 at 19:37; Status DC Magnesium Citrate (Citroma) 296 ml PRN 1X PRN PO CONSTIPATION, UNREL BY OTHERS ; Start 06/09/18 at 11:45 Lorazepam (Ativan) 0.5 mg PRN Q8HRS PRN PO ANXIETY / AGITATION Last administered on 06/14/18at 22:04; Start 06/10/18 at 11:45 Haloperidol Lactate (Haldol Inj) 2 mg PRN Q4HRS PRN IVP Hallucinatns,Confusn, Delirium; Start 06/10/18 at 14:15 Active Scripts Active Thiamine Hcl 100 Mg Tablet 100 Mg PO AFTRNOON 14 Days Thera-M Tablet (Multivits,Ca,Minerals/Iron/Fa) 1 Each Tablet 1 Tab PO DAILY 14 Days Folic Acid 1 Mg Tablet 1 Mg PO DAILY 14 Days Senna-Time S Tablet (Sennosides/Docusate Sodium) 1 Each Tablet 1 Tab PO BID 14 Days Colace (Docusate Sodium) 100 Mg Capsule 100 Mg PO BID 14 Days Ativan (Lorazepam) 0.5 Mg Tablet 0.5 Mg PO PRN Q8HRS PRN 14 Days Tylenol (Acetaminophen) 325 Mg Tablet 650 Mg PO PRN Q6HRS PRN 14 Days Catapres (Clonidine Hcl) 0.1 Mg Tablet 0.1 Mg PO PRN Q1HR PRN 14 Days Vitals/I & O Vital Sign - Last 24 Hours 06/14/18 06/14/18 06/14/18 06/14/18 11:30 15:00 19:00 20:24 Temp 98.1 97.6 98.1 97.6 Pulse 79 89 87 Resp 16 18 B/P (MAP) 152/105 142/93 (109) 115/72 (86) Pulse Ox 98 99 O2 Delivery Room Air Room Air Room Air 06/14/18 06/15/18 06/15/18 23:00 03:00 07:00 Temp 98.3 97.9 98.2 98.3 97.9 98.2 Pulse 80 79 69 Resp 18 18 16 B/P (MAP) 122/78 (93) 119/90 (100) 107/73 (84) Pulse Ox 96 99 99 O2 Delivery Room Air Room Air Room Air JOHN CAMILO III DO Jun 15, 2018 11:23
[2018-06-15 15:00] VITALS: BP 119/90
[2018-06-15] MEDS: traMADol 50 MG TABLET PO PRN (15:30)
--- NOTE | 2018-06-15 18:48 | DISCH ---
DISCHARGE DISCHARGE INFORMATION: FINAL DIAGNOSIS Problems Medical Problems: (1) ETOH abuse Status: Acute (2) Fall Status: Acute CONDITION ON DISCHARGE: Stable CODE STATUS: Code Status: Full LONGTERM: SNF STAY <30 DAYS: No HOSPICE: HOSPICE: No HOSPICE EVAL & TREAT: No LTAC: ADMIT TO LTAC: No POST DISCHARGE ORDERS: ACTIVITY ORDERS: Activity as tolerated BATHING ORDERS: Shower-keep dressing dry DIET AFTER DISCHARGE: Cardiac CHECKS AFTER DISCHARGE: CHECKS AFTER DISCHARGE: Check blood press - daily TREATMENT/EQUIPMENT ORDERS: Physical Therapy For: Evalulation/Treatment Occupational Therapy For: Evaluation/Treatment Speech Language Pathology For: Evaluation/Treatment DISCHARGE MEDICATIONS: Home Meds Active Scripts Thiamine Hcl (THIAMINE HCL) 100 Mg Tablet, 100 MG PO AFTRNOON for 14 Days, #14 TAB Prov:CARISSA MOORE MD 06/12/18 Multivits,Ca,Minerals/Iron/Fa (THERA-M TABLET) 1 Each Tablet, 1 TAB PO DAILY for 14 Days, #14 TAB Prov:CARISSA MOORE MD 06/12/18 Folic Acid (FOLIC ACID) 1 Mg Tablet, 1 MG PO DAILY for 14 Days, #14 TAB Prov:CARISSA MOORE MD 06/12/18 Sennosides/Docusate Sodium (SENNA-TIME S TABLET) 1 Each Tablet, 1 TAB PO BID for 14 Days, #28 TAB Prov:CARISSA MOORE MD 06/12/18 Docusate Sodium (COLACE) 100 Mg Capsule, 100 MG PO BID for 14 Days, #28 CAP Prov:CARISSA MOORE MD 06/12/18 Lorazepam (ATIVAN) 0.5 Mg Tablet, 0.5 MG PO PRN Q8HRS PRN for ANXIETY / AGITATION for 14 Days, #10 TAB Prov:CARISSA MOORE MD 06/12/18 Acetaminophen (TYLENOL) 325 Mg Tablet, 650 MG PO PRN Q6HRS PRN for FEVER for 14 Days, #30 TAB Prov:CARISSA MOORE MD 06/12/18 Clonidine Hcl (CATAPRES) 0.1 Mg Tablet, 0.1 MG PO PRN Q1HR PRN for SBP > 180 or DBP > 100, MRX3 for 14 Days, #14 TAB Prov:CARISSA MOORE MD 06/12/18 JOHN CAMILO III DO Jun 15, 2018 18:48
--- NOTE | 2018-06-18 11:23 | DS ---
DATE OF DISCHARGE: 06/15/2018 ADMISSION DIAGNOSES: Fall with subdural hematoma and subarachnoid hemorrhage and alcohol issues. DISCHARGE DIAGNOSIS: Resolving subarachnoid hemorrhage after a fall. HOSPITAL COURSE: The patient is a pleasant 58-year-old male who drinks too much. He presented after a fall with a subdural hematoma and a subarachnoid hemorrhage. We observed him for over a week. The plan was deemed to rehab but we had insurance issues. His daughter started to communicate closely with me the last couple of days. She really wanted to get him home. I did see the patient with her on 06/15/2018. He was doing well as he is walking in the halls, alert and oriented. We changed our plan to discharge him home with close outpatient followup. DISPOSITION: Home. ACTIVITY: As tolerated. DIET: Low sodium. MEDICATIONS: Please see the MRAD. TOTAL TIME ON DISCHARGE: Thirty-seven minutes. JOHN CAMILO DO DR: SHELLY/cammie JOB#: [id number] / [id number]
== END 2018-06-15 19:20 | disposition home or self-care (01) | DRG 82 ==
LOC: ER 11:49 → 1 WEST ICU 13:26 → 4 NORTH 06-09 10:50
PROVIDERS: ADMIT Family Medicine; ATTEND Family Medicine
DX: S06.6X9A Traumatic subarachnoid hemorrhage with loss of consciousness of unspecified duration, initial encounter (principal); G93.41 Metabolic encephalopathy; E87.1 Hypo-osmolality and hyponatremia; G93.6 Cerebral edema; S06.5X9A Traumatic subdural hemorrhage with loss of consciousness of unspecified duration, initial encounter; E78.5 Hyperlipidemia, unspecified; F10.20 Alcohol dependence, uncomplicated; I10 Essential (primary) hypertension; W18.39XA Other fall on same level, initial encounter; K59.00 Constipation, unspecified; M25.78 Osteophyte, vertebrae; F32.9 Major depressive disorder, single episode, unspecified; M43.10 Spondylolisthesis, site unspecified; M50.322 Other cervical disc degeneration at C5-C6 level; S00.93XA Contusion of unspecified part of head, initial encounter; Z72.0 Tobacco use; Z81.1 Family history of alcohol abuse and dependence; Z81.8 Family history of other mental and behavioral disorders; Z79.899 Other long term (current) drug therapy; Y93.89 Activity, other specified; Y92.89 Other specified places as the place of occurrence of the external cause; Y99.8 Other external cause status
CPT/HCPCS: 36415; 70450; 71045; 72125; 80048; 80053; 80061; 80307; 81001; 82248; 82553; 82607; 83735; 83880; 84443; 84484; 85007; 85025; 85610; 85730; 87641; 90471; 90756; 93005; 96360; G0480; J2060; J2270; J3480; J7030; 92507; 92523; 97110; 97116; 97530; 97535; 99285-25; G0479; Q2035

== ENCOUNTER → 2018-06-29 | Outpatient (CLI) | payer OTHER ==
[2018-06-15 15:00] VITALS: BP 119/90
[~2018-06-29] MED LIST: ACET325T9 PO; CLON0.1T12 PO; DOCU-109 PO; FOLI1TAB16 PO; LORA0.5T96 PO; MULT1TAB90 PO; SENN-22 PO; THIA100T8 PO
--- NOTE | 2018-06-29 14:57 | RAD ---
CT HEAD WO CONTRAST History: Subdural hematoma Comparison: June 11, 2018 Technique: Noncontrast CT imaging was performed of the head. Exposure: One or more of the following individualized dose reduction techniques were utilized for this examination: 1. Automated exposure control 2. Adjustment of the mA and/or kV according to patient size 3. Use of iterative reconstruction technique. Findings: No acute intracranial hyperdense hemorrhage is identified. Previously seen hyperdense left frontal parenchymal hematoma is no longer clearly apparent, some residual low density in this region and very subtle density at site of previously seen hematoma. Ventricular size is within normal limits, stable. Previously seen subarachnoid hemorrhage of the parafalcine region greater on the left is not seen. There is again relative lower density in the right parietal region in subdural distribution overall similar, greatest thickness about 0.7 cm. There is moderate right maxillary sinus mucosal thickening. Mastoid air cells are aerated. Impression: 1. Previously seen left frontal parenchymal hemorrhage is not clearly apparent, subtle residual density at this location and low density which may be due to component of gliosis or residual edema. Previously seen subarachnoid hemorrhage has resolved. Mild right parietal region subdural lower density is similar which may be due to sequela of old subdural hematoma or effusion. No new intracranial hemorrhage is identified. Electronically signed by: Neal Cano MD (06/29/2018 2:54 PM) [id number]
== END | disposition home or self-care (01) ==
LOC: CT 13:12
PROVIDERS: ATTEND Neurological Surgery
DX: S06.5X0A Traumatic subdural hemorrhage without loss of consciousness, initial encounter (principal); X58.XXXA Exposure to other specified factors, initial encounter; Y93.89 Activity, other specified; Y92.89 Other specified places as the place of occurrence of the external cause; Y99.8 Other external cause status
CPT/HCPCS: 70450

== ENCOUNTER → 2018-08-06 | Outpatient (CLI) | payer OTHER ==
--- NOTE | 2018-08-06 15:13 | RAD ---
CT of the head without contrast 08/06/2018 INDICATION: Follow-up subdural hematoma COMPARISON STUDY: CT of the head without contrast June 29, 2018. TECHNIQUE: Multidetector CT imaging of brain was performed without contrast FINDINGS: No evidence of acute intracranial hemorrhage is identified. No evidence of subacute territorial infarct is seen. Note that CT is limited for evaluation of acute ischemia. Expected evolution of left frontal encephalomalacia is seen. No evidence of acute mass effect or midline shift is identified. Ventricles and basilar cisterns have an unremarkable configuration. No acute osseous changes are noted. IMPRESSION: 1. No evidence of acute intracranial abnormality 2. Expected evolution of left frontal encephalomalacia CT DOSING PQRS STATEMENT: One or more of the following individualized dose reduction techniques were utilized for this examination: 1. Automated exposure control 2. Adjustment of the mA and/or kV according to patient size 3. Use of iterative reconstruction technique Electronically signed by: Sb Taylor MD (08/06/2018 3:10 PM) [id number]
== END | disposition home or self-care (01) ==
LOC: CT 08:26
PROVIDERS: ATTEND Neurological Surgery
DX: S06.5X0D Traumatic subdural hemorrhage without loss of consciousness, subsequent encounter (principal); X58.XXXD Exposure to other specified factors, subsequent encounter
CPT/HCPCS: 70450

== ENCOUNTER 2021-04-23 19:57 | Emergency (ER) | payer OTHER ==
[~2021-04-23 19:57] MED LIST changes: -MULT1TAB90 PO; +MULT1TAB92 PO
[2021-04-27] MEDS ORDERED: VITAMIN D PO (23:27)
[2021-04-27] MEDS ORDERED: METH4TAB6 PO ×2 (23:27)
[2021-04-27] MEDS ORDERED: TAMS0.4C97 PO (23:27)
[2021-04-27] MEDS ORDERED: AZIT250T6 PO (23:27)
[2021-04-27] MEDS ORDERED: ATOR10TA60 PO (23:27)
[2021-04-27] MEDS ORDERED: METH8TAB3 PO (23:27)
== END 2021-04-23 21:06 | disposition left against medical advice (07) ==
LOC: ER 19:57
DX: K92.0 Hematemesis (principal); Z53.21 Procedure and treatment not carried out due to patient leaving prior to being seen by health care provider

== ENCOUNTER → 2021-05-28 | Outpatient (CLI) | payer SELFPAY ==
[2021-04-29 11:00] VITALS: BP 125/82
[~2021-05-28] MED LIST changes: +ATOR10TA60 PO; +AZIT250T6 PO; +METH4TAB6 PO; +METH8TAB3 PO; +PRED20TA PO; +TAMS0.4C97 PO; +VITAMIN D PO
--- NOTE | 2021-07-19 16:32 | EEG ---
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 DESCRIPTION OF PROCEDURE: This is a digital study. Electrodes are placed according to international 10-20 system. Bipolar and referential montages are available. Activation procedures typically include hyperventilation and intermittent photic stimulation. INTERPRETATION: The waking background consists of 9-10 Hz, 50-100 microvolt activity, symmetrically distributed over parieto-occipital regions and reactive to eye opening. There are frequent 3 Hz spike and wave discharges, for instance at 10:06:43. Stage 1 sleep was achieved. Hyperventilation and intermittent photic stimulation are noncontributory. IMPRESSION: This electroencephalogram with the patient awake and asleep is abnormal because of a generalized epileptiform disturbance of cerebral activity as may be seen in primary generalized epilepsy. Thank you for letting us help with the patient's care. CHANDANA DR: Kayla TID: [id number] CC: KANDACE MAHER
== END ==
LOC: RT 08:55
PROVIDERS: ATTEND Psychiatry & Neurology Neurology with Special Qualifications in Child Neurology
DX: G40.309 Generalized idiopathic epilepsy and epileptic syndromes, not intractable, without status epilepticus (principal)
CPT/HCPCS: 95816

== ENCOUNTER → 2021-06-03 | Outpatient (CLI) | payer SELFPAY ==
[2021-04-29 11:00] VITALS: BP 125/82
--- NOTE | 2021-06-03 15:21 | KCIC ---
EXAM: Brain MRI without contrast. HISTORY: Epilepsy. TECHNIQUE: Multiplanar, multisequence magnetic resonance imaging of the brain was performed without c ontrast. COMPARISON: CT dated 04/27/2021. FINDINGS: There is no restricted diffusion to suggest acute or subacute infarction. There is a focus of mild increased signal on diffusion weighted images within the left frontal lobe due to T2 shine th rough artifact. There is encephalomalacia within the anterior inferior left frontal lobe and adjacent inferior medial right frontal lobe. There is a smaller focus of signal change within the anterior medial left fronta l lobe cortex. There is susceptibility effect overlying these locations likely due to chronic hemosid ej deposition and setting of remote trauma. There is also a focus of chronic microhemorrhage involving the lateral left frontal lobe and there is encephalomalacia involving the anterior inferior left temporal lobe. There is a small oval focus of T2 such FLAIR hyperintensity within the left anterior frontal periventricular white matter. The orbits are unremarkable. There is right greater than left maxillary sinus mucosal thickening with mucous retention cysts and a small right maxillary sinus air-fluid level. There is a small amount of fluid within the right mastoid air cells. There are normal flow voids within the cerebral vessels. T here is no suspicious calvarial lesion. There is no heterotopia or malformation of cortical development. There is minimal asymmetry in the si ze of the right greater than left hippocampus. IMPRESSION: 1. No acute intracranial finding. 2. Encephalomalacia within the anterior inferior left frontal lobe, anterior inferior left temporal l obe and inferior medial right frontal lobe with associated slight hemosiderin deposition likely due t o remote trauma. 3. Small focus of signal change within the left frontal periventricular white matter. Given the lesio n location and configuration, this may be a focus of chronic demyelination. The differential also inc ludes changes due to chronic small vessel disease and chronic infarction. 4. Slight asymmetric decreased size of the left hippocampus. This can be seen with mesial temporal sc lerosis. Correlate with localizing EEG findings in this patient with epilepsy. 5. Right maxillary sinus predominant paranasal sinus disease. Electronically signed by: Joseline Desouza MD (06/03/2021 3:18 PM) [id number]
== END ==
LOC: KCIC MRI 12:23
PROVIDERS: ATTEND Psychiatry & Neurology Neurology with Special Qualifications in Child Neurology
DX: G40.309 Generalized idiopathic epilepsy and epileptic syndromes, not intractable, without status epilepticus (principal); G93.89 Other specified disorders of brain
CPT/HCPCS: 70551